=== PATIENT | male | born 1950 ===

== ENCOUNTER 2018-05-04 19:16 | Inpatient (IN) | payer MEDICARE ==
[2018-05-04] MEDS ORDERED: Sodium Chloride 0.9% 1,000 ML IV STA (20:25)
--- NOTE | 2018-05-04 20:44 | ED PDOC ---
Syncope/Near Syncope/Dizziness Time Seen by Provider: 05/04/18 19:54 Chief Complaint (Nursing): Dizziness/Lightheaded Chief Complaint (Provider): Dizziness/Lightheaded History Per: Patient History/Exam Limitations: no limitations Onset/Duration Of Symptoms: Days (x21) Current Symptoms Are (Timing): Still Present Additional Complaint(s): 68 y/o male with no significant PMHx presents to the ED complaining of intermittent dizziness, onset three weeks ago. Patient reports dizziness is worse when walking but improves when lying down. Patient states dizziness has been becoming more frequent and prolonged thus prompting today's visit. Patient reports he has fallen about 6/7 times in the last three weeks. Patient also report of hitting his head once during the past three weeks during a fall but denies loss of consciousness. Patient states dizziness is associated with nausea and sometimes vomiting. Patient also reports of a gas pain in his chest, decreased appetite and unintentional weight loss. Denies diarrhea, focal weakness and blurry vision. PMD: Currently NO PMD due to insurance issues Past Medical History Reviewed: Historical Data, Nursing Documentation, Vital Signs Vital Signs: Last Vital Signs Temp 98.4 F 05/04/18 19:30 Pulse 117 H 05/04/18 19:30 Resp BP 107/70 05/04/18 19:30 Pulse Ox 98 05/04/18 19:30 - Medical History PMH: No Chronic Diseases - Surgical History Other surgeries: Right Shoulder Surgery - Family History Family History: States: Unknown Family Hx - Social History Current smoker - smoking cessation education provided: No - Home Medications Home Medications: Ambulatory Orders Medication Instructions Recorded No Known Home Med 06/23/15 - Allergies Allergies/Adverse Reactions: Allergies Allergy/AdvReac Type Severity Reaction Status Date / Time No Known Allergies Allergy Verified 05/04/18 19:29 Review of Systems ROS Statement: Except As Marked, All Systems Reviewed And Found Negative (as per HPI) Constitutional: Positive for: Weight loss Eyes: Negative for: Vision Change Cardiovascular: Positive for: Chest Pain (gas pain ) Gastrointestinal: Positive for: Nausea, Vomiting, Other (decreased appetite). Negative for: Diarrhea Neurological: Positive for: Dizziness. Negative for: Weakness Physical Exam - Reviewed Nursing Documentation Reviewed: Yes Vital Signs Reviewed: Yes - Physical Exam Appears: Positive for: Well, No Acute Distress Head Exam: Positive for: ATRAUMATIC, NORMOCEPHALIC Skin: Positive for: Warm, Dry Eye Exam: Positive for: EOMI, PERRL ENT: Negative for: Pharyngeal Erythema, Tonsillar Exudate Neck: Positive for: Painless ROM, Supple Cardiovascular/Chest: Positive for: Regular Rate, Rhythm, Tachycardia Respiratory: Positive for: Normal Breath Sounds. Negative for: Wheezing Gastrointestinal/Abdominal: Positive for: Soft. Negative for: Tenderness Back: Positive for: Normal Inspection. Negative for: Decreased ROM Extremity: Positive for: Other (Difficult moving right upper extremity due to right shoulder issue) Lymphatic: Negative for: Adenopathy Neurologic/Psych: Positive for: Alert, Oriented (x3), Cerebellar Tests (normal) - Laboratory Results Result Diagrams: 05/05/18 06:37 05/05/18 06:37 - ECG O2 Sat by Pulse Oximetry: 98 (RA) Pulse Ox Interpretation: Normal Medical Decision Making Medical Decision Making: Time: 2026 Impression: Dizziness Differentials include but not limited to vertigo, electrolyte abnormality, adrenaline sufficiency, dehydration, cerebellar lesion, NPH Plan: -- Type and Screen -- CT Head w/o Contrast -- EKG -- B-Type Natriuretic -- CMP -- Cortisol PM -- Urine Drug Screen -- Lact Acid, Plasma -- Magnesium -- Phosphorus -- Troponin I -- ED Urine Dipstick -- CBC with differentials -- PTT -- Prothrombin Time -- Antivert 50 mg PO -- Sodium Chloride IV 1000 mls/hr -- Zofran Inj 4 mg IVP -- Nodulizer -- IV Insertion -- Orthostatic Blood Pressure Time: 1006 CT HEAD RESULTS FINDINGS: Brain: No hemorrhage. No significant periventricular microischemic changes. No edema. Ventricles: Appropriate for patient's age. Bones/joints: No acute fracture. Soft tissues: No radiopaque foreign body. Sinuses: No acute sinusitis. Mastoid air cells: No mastoid effusion. IMPRESSION: No acute CT intracranial abnormalities. Thank you for allowing us to participate in the care of your patient. Dictated and Authenticated by: Leland Petersen MD 05/04/2018 10:06 PM Eastern Time ([place] & [place]) Multiple electrolyte derangements of unknown cuase. Needs hospitalization for further evaluation. DEMARIO pt findings and plan of care. DEMARIO Enriquez [facility]. Scribe Attestation: Documented by Eb Hackett acting as a scribe for Dr. Megan Lopes. Provider Scribe Attestation: All medical record entries made by the Scribe were at my direction and personally dictated by me. I have reviewed the chart and agree that the record accurately reflects my personal performance of the history, physical exam, medical decision making, and the department course for this patient. I have also personally directed, reviewed, and agree with the discharge instructions and disposition. Disposition - Clinical Impression Clinical Impression: Hypokalemia, Tachycardia, Hypomagnesemia - Disposition Disposition Time: 22:30 Condition: FAIR - Pt Status Changed To: Hospital Disposition Of: Inpatient - Admit Certification Admit to Inpatient:: After my assessment, the patient will require hospitalization for at least two midnights. This is because of the severity of symptoms shown, intensity of services needed, and/or the medical risk in this patient being treated as an outpatient. - POA Present On Arrival: None
[2018-05-04 20:55] LABS: BASO # 0.1 K/uL (0.0-0.2); BASO % 0.7 % (0.0-2.0); EOS % 0.4 % (0.0-4.0); LYMPH # 1.3 K/uL (1.0-4.3); LYMPH % 13.3 % (20.0-40.0); MEAN CELL VOLUME 99.7 fl (80.0-94.0); MEAN CORPUSCULAR HEMOGLOBIN 32.9 pg (27.0-31.0); MEAN CORPUSCULAR HGB CONC 33.1 g/dL (33.0-37.0); MEAN PLATELET VOLUME 8.7 fl (7.2-11.7); MONO # 0.6 K/uL (0.0-0.8); NEUT # 7.8 K/uL (1.8-7.0); NEUT % 79.6 % (50.0-75.0); RBC 3.93 Mil/uL (4.40-5.90); WHITE BLOOD COUNT 9.8 K/uL (4.8-10.8)
[2018-05-04 21:00] LABS: INR 1.2; PROTHROMBIN TIME 13.4 Seconds (9.8-13.1)
[2018-05-04 21:02] LABS: PARTIAL THROMBOPLASTIN TIME 30.4 Seconds (25.6-37.1)
[2018-05-04 21:06] LABS: ALB/GLOB RATIO 1.1 (1.0-2.1); ALBUMIN 3.8 g/dL (3.5-5.0); ALT/SGPT 35 U/L (21-72); AST/SGOT 156 U/L (17-59); BLOOD UREA NITROGEN 5 mg/dl (9-20); CALCIUM 9.2 mg/dL (8.4-10.2); GFR AFRICAN-AMERICAN > 60; GFR NON-AFRICAN AMERICAN > 60
[2018-05-04 21:17] LABS: B-TYPE NATRIURETIC PEPTIDE 271 pg/ml (0-900)
[2018-05-04] MEDS ORDERED: Potassium CL 10mEq/100ml 100 ML IVPB ONE (22:03)
[2018-05-04] MEDS ORDERED: Magnesium Sulfate 2 gm/50 ml 2 GM/50 ML BAG IVPB ONE (22:08)
[2018-05-04] MEDS ORDERED: Potassium Chl 20 mEq in NS 1,000 ML IV SCH (22:15)
[2018-05-05] MEDS ORDERED: Magnesium Sulfate 2 gm/50 ml 2 GM/50 ML BAG ONE (01:43)
[2018-05-05] MEDS ORDERED: Dextrose 5%/Lactated Ringer's 1,000 ML IV SCH (06:30)
[2018-05-05 06:58] LABS: HEMOGLOBIN 11.3 g/dL (12.0-18.0); MEAN CELL VOLUME 100.6 fl (80.0-94.0); MEAN CORPUSCULAR HEMOGLOBIN 33.1 pg (27.0-31.0); MEAN CORPUSCULAR HGB CONC 32.9 g/dL (33.0-37.0); RBC 3.41 Mil/uL (4.40-5.90); WHITE BLOOD COUNT 10.2 K/uL (4.8-10.8)
[2018-05-05 07:00] LABS: BLOOD UREA NITROGEN 4 mg/dl (9-20); CALCIUM 7.9 mg/dL (8.4-10.2); GFR AFRICAN-AMERICAN > 60; GFR NON-AFRICAN AMERICAN > 60
--- NOTE | 2018-05-05 07:20 | CARD ---
APPROVED REPORT Date of service: 05/04/2018 <Conclusion> Sinus tachycardia Otherwise normal ECG
--- NOTE | 2018-05-05 07:51 | RAD ---
Date of service: 05/04/2018 HISTORY: weakness COMPARISON: Chest radiographs 10/23/2008. FINDINGS: LUNGS: No active pulmonary disease. PLEURA: No significant pleural effusion identified, no pneumothorax apparent. CARDIOVASCULAR: Normal. OSSEOUS STRUCTURES: No significant abnormalities. VISUALIZED UPPER ABDOMEN: Elevation right hemidiaphragm. OTHER FINDINGS: None. IMPRESSION: Mild elevation right hemidiaphragm. No acute infiltrate or interval cardiovascular disease appreciable.
[2018-05-05 08:10] VITALS: PULSE 90
[2018-05-05] MEDS ORDERED: Pneumococcal 23-Valent Vaccine IM ONE (09:00)
--- NOTE | 2018-05-05 10:11 | CT ---
Date of service: 05/04/2018 PROCEDURE: CT HEAD WITHOUT CONTRAST. HISTORY: intractable dizziness COMPARISON: None available. TECHNIQUE: Axial computed tomography images were obtained through the head/brain without intravenous contrast. Radiation dose: Total exam DLP = 758.06 mGy-cm. This CT exam was performed using one or more of the following dose reduction techniques: Automated exposure control, adjustment of the mA and/or kV according to patient size, and/or use of iterative reconstruction technique. FINDINGS: HEMORRHAGE: No intracranial hemorrhage. BRAIN: Good corticomedullary differentiation is seen. Minimal, proportional, diffuse expansion of the ventriculosulcal and cisternal spaces is appreciated with white matter lucency compatible with diffuse cerebral atrophy and chronic microangiopathy. No suspicious extra-axial fluid collection is identified and the midline brain anatomy appears grossly nonfocal as imaged. There is no mass effect throughout.No atrophy or chronic microvascular ischemic changes. VENTRICLES: Unremarkable. No hydrocephalus. CALVARIUM: Unremarkable. PARANASAL SINUSES: Unremarkable as visualized. No significant inflammatory changes. MASTOID AIR CELLS: Unremarkable as visualized. No inflammatory changes. OTHER FINDINGS: None. IMPRESSION: Minimal age related neuro degenerative findings as discussed above. No acute intracranial findings by standard CT criteria. Follow-up CT or MRI are available if clinically warranted. Concordant preliminary report from [facility], 05/04/2018.
[2018-05-05 10:31] LABS: ALT/SGPT 32 U/L (21-72); AST/SGOT 165 U/L (17-59)
--- NOTE | 2018-05-05 10:49 | CP.PCM.CON ---
<HermiloradhafrankyYunier - Last Filed: 05/05/18 11:36> History of Present Illness - History of Present Illness History of Present Illness: GI Fellow PGY4, consult note. Jaime Montelongo is a 68M presenting with recurrent falls and found to have elevated liver tests. Patient has been feeling weak and falling for 3 weeks. He admits ~20lb weight loss in the last month. He denies appetite and develops nausea and non-bloody vomiting with eating. He denies difficulty swallowing, or abnormal bowel movements. He denies black stool. He denies abdominal pain. He is not seeing a PCP at this time. He was told to stop drinking alcohol a few years ago because he had abnormal liver tests. PMHx - colon polyps PSHx - Hernia repair. Colonoscopy x2, last one was ~10yrs ago. Told to repeat study in 5 yrs. FMHx - Denies cancer of colon, stomach, liver. Denies cirrhosis. SocHx - Denies tobacco use. Previous heavy drinker, but drinks occasionally. , lives with family. 12pt ROS completed and negative except for above. Past Patient History - Past Medical History & Family History Past Medical History?: Yes - Past Social History Smoking Status: Former Smoker - CARDIAC Hx Cardiac Disorders: No - PULMONARY Hx Respiratory Disorders: No - NEUROLOGICAL Hx Neurological Disorder: No - HEENT Hx HEENT Problems: No - RENAL Hx Chronic Kidney Disease: No - ENDOCRINE/METABOLIC Hx Endocrine Disorders: No - HEMATOLOGICAL/ONCOLOGICAL Hx Blood Disorders: No - INTEGUMENTARY Hx Dermatological Problems: No - MUSCULOSKELETAL/RHEUMATOLOGICAL Hx Musculoskeletal Disorders: No Hx Falls: Yes - GASTROINTESTINAL Hx Gastrointestinal Disorders: No - GENITOURINARY/GYNECOLOGICAL Hx Genitourinary Disorders: No - PSYCHIATRIC Hx Psychophysiologic Disorder: No Hx Substance Use: No - SURGICAL HISTORY Hx Herniorrhaphy: Yes Hx Orthopedic Surgery: Yes (Right shoulder surgery) - ANESTHESIA Hx Anesthesia: Yes Hx Anesthesia Reactions: No Hx Malignant Hyperthermia: No Has any member of the family had a problem w/ anesthesia?: No Meds Allergies/Adverse Reactions: Allergies Allergy/AdvReac Type Severity Reaction Status Date / Time No Known Allergies Allergy Verified 05/04/18 19:29 - Medications Medications: Current Medications Potassium Chloride/Sodium Chloride (Potassium Chl 20 Meq In Ns) 1,000 mls @ 250 mls/hr IV .Q4H [facility]IA Stop: 05/05/18 22:06 Last Admin: 05/05/18 03:25 Dose: 250 mls/hr Dextrose/Lactated Ringer's (Dextrose 5%/Lactated Ringer's) 1,000 mls @ 100 mls/ hr IV .Q10H [facility] Last Admin: 05/05/18 08:48 Dose: 100 mls/hr Physical Exam - Constitutional Appears: Well, Non-toxic, No Acute Distress - Head Exam Head Exam: NORMAL INSPECTION - Eye Exam Eye Exam: Normal appearance - ENT Exam ENT Exam: Normal Exam - Respiratory Exam Respiratory Exam: Clear to Auscultation Bilateral, NORMAL BREATHING PATTERN. absent: Wheezes - Cardiovascular Exam Cardiovascular Exam: REGULAR RHYTHM, +S1, +S2 - GI/Abdominal Exam GI & Abdominal Exam: Normal Bowel Sounds, Organomegaly, Soft. absent: Tenderness - Rectal Exam Rectal Exam: NORMAL INSPECTION Additional comments: No obvious mass. Prostate was uniform, symmetric. stool was brown in color. - Extremities Exam Extremities exam: Positive for: normal inspection - Neurological Exam Neurological exam: Alert, CN II-XII Intact, Oriented x3 - Psychiatric Exam Psychiatric exam: Normal Affect, Normal Mood - Skin Skin Exam: Dry, Normal Color Results - Vital Signs Recent Vital Signs: Last Vital Signs Temp 98.4 F 05/05/18 08:09 Pulse 90 05/05/18 09:00 Resp 19 05/05/18 08:09 BP 128/88 05/05/18 08:09 Pulse Ox 98 05/05/18 08:09 - Labs Result Diagrams: 05/05/18 06:37 05/05/18 06:37 Labs: Laboratory Results - last 24 hr 05/04/18 05/04/18 05/04/18 20:45 20:45 20:45 WBC 9.8 RBC 3.93 L Hgb 13.0 Hct 39.2 MCV 99.7 H MCH 32.9 H MCHC 33.1 RDW 13.0 Plt Count 161 MPV 8.7 Neut % (Auto) 79.6 H Lymph % (Auto) 13.3 L [place] % (Auto) 6.0 Eos % (Auto) 0.4 Baso % (Auto) 0.7 Neut # (Auto) 7.8 H Lymph # (Auto) 1.3 [place] # (Auto) 0.6 Eos # (Auto) 0.0 Baso # (Auto) 0.1 PT 13.4 H INR 1.2 APTT 30.4 Sodium 137 Potassium 3.0 L Chloride 95 L Carbon Dioxide 33 H Anion Gap 12 BUN 5 L Creatinine 0.7 L Est GFR ( Amer) > 60 Est GFR (Non-Af Amer) > 60 Random Glucose 113 H Lactic Acid Calcium 9.2 Phosphorus 1.8 L Magnesium 1.2 L Total Bilirubin 1.4 H AST 156 H ALT 35 Alkaline Phosphatase 227 H Troponin I 0.0160 NT-Pro-B Natriuret Pep 271 Total Protein 7.3 Albumin 3.8 Globulin 3.6 Albumin/Globulin Ratio 1.1 Alpha Fetoprotein Carcinoembryonic Ag Blood Type Antibody Screen BBK History Checked 05/04/18 05/04/18 05/05/18 20:45 20:45 06:37 WBC 10.2 RBC 3.41 L Hgb 11.3 L Hct 34.3 L MCV 100.6 H MCH 33.1 H MCHC 32.9 L RDW 13.0 Plt Count 135 MPV Neut % (Auto) Lymph % (Auto) [place] % (Auto) Eos % (Auto) Baso % (Auto) Neut # (Auto) Lymph # (Auto) [place] # (Auto) Eos # (Auto) Baso # (Auto) PT INR APTT Sodium Potassium Chloride Carbon Dioxide Anion Gap BUN Creatinine Est GFR ( Amer) Est GFR (Non-Af Amer) Random Glucose Lactic Acid 2.3 H Calcium Phosphorus Magnesium Total Bilirubin AST ALT Alkaline Phosphatase Troponin I NT-Pro-B Natriuret Pep Total Protein Albumin Globulin Albumin/Globulin Ratio Alpha Fetoprotein Carcinoembryonic Ag Blood Type O POSITIVE Antibody Screen Negative BBK History Checked No verified bt 05/05/18 05/05/18 06:37 06:37 WBC RBC Hgb Hct MCV MCH MCHC RDW Plt Count MPV Neut % (Auto) Lymph % (Auto) [place] % (Auto) Eos % (Auto) Baso % (Auto) Neut # (Auto) Lymph # (Auto) [place] # (Auto) Eos # (Auto) Baso # (Auto) PT INR APTT Sodium 136 Potassium 3.7 Chloride 99 Carbon Dioxide 32 H Anion Gap 9 L BUN 4 L Creatinine 0.6 L Est GFR ( Amer) > 60 Est GFR (Non-Af Amer) > 60 Random Glucose 114 H Lactic Acid Calcium 7.9 L Phosphorus 1.5 L Magnesium 1.5 L Total Bilirubin 1.9 H AST 165 H ALT 32 Alkaline Phosphatase 173 H D Troponin I NT-Pro-B Natriuret Pep Total Protein 6.0 L Albumin 3.0 L D Globulin 3.0 Albumin/Globulin Ratio 1.0 Alpha Fetoprotein 2.2 Carcinoembryonic Ag 4.3 H Blood Type Antibody Screen BBK History Checked Assessment & Plan - Assessment and Plan (Free Text) Assessment: 68M presenting with recurrent falls and found to have elevated liver tests. #Elevated liver tests #weight loss #Nausea/vomiting #Elevated CEA #Hx of colon polyps #Anemia macrocytic #Generalized weakness #Recurrent falls Plan: -Continue supportive care. -Liver function tests (Plts, INR, Albumin, Tbili) are consistent with chronic liver disease, possible cirrhosis. -For abnormal liver tests: abdominal US, hepatitis panel, CK, TSH, drug screen -For anemia: b12 level -For wt. loss, nausea/vomiting in setting of elevated CEA: Patient will benefit from EGD and Colonoscopy -Schedule for endoscopy Tuesday -He will need to be on clear liquid diet Tuesday and NPO Tuesday. Bowel prep starting Tuesday - Date & Time Date: 05/05/18 Time: 10:47 <Isrrael Quiroz - Last Filed: 05/05/18 14:57> Results - Vital Signs Recent Vital Signs: Last Vital Signs Temp 98.8 F 05/05/18 13:34 Pulse 90 05/05/18 13:34 Resp 18 05/05/18 13:34 BP 142/91 H 05/05/18 13:34 Pulse Ox 99 05/05/18 13:34 - Labs Result Diagrams: 05/05/18 06:37 05/05/18 06:37 Labs: Laboratory Results - last 24 hr 05/04/18 05/04/18 05/04/18 20:45 20:45 20:45 WBC 9.8 RBC 3.93 L Hgb 13.0 Hct 39.2 MCV 99.7 H MCH 32.9 H MCHC 33.1 RDW 13.0 Plt Count 161 MPV 8.7 Neut % (Auto) 79.6 H Lymph % (Auto) 13.3 L [place] % (Auto) 6.0 Eos % (Auto) 0.4 Baso % (Auto) 0.7 Neut # (Auto) 7.8 H Lymph # (Auto) 1.3 [place] # (Auto) 0.6 Eos # (Auto) 0.0 Baso # (Auto) 0.1 PT 13.4 H INR 1.2 APTT 30.4 Sodium 137 Potassium 3.0 L Chloride 95 L Carbon Dioxide 33 H Anion Gap 12 BUN 5 L Creatinine 0.7 L Est GFR ( Amer) > 60 Est GFR (Non-Af Amer) > 60 Random Glucose 113 H Lactic Acid Calcium 9.2 Phosphorus 1.8 L Magnesium 1.2 L Total Bilirubin 1.4 H AST 156 H ALT 35 Alkaline Phosphatase 227 H CK-MB (Mass) Troponin I 0.0160 NT-Pro-B Natriuret Pep 271 Total Protein 7.3 Albumin 3.8 Globulin 3.6 Albumin/Globulin Ratio 1.1 Alpha Fetoprotein Carcinoembryonic Ag Vitamin B12 Blood Type Antibody Screen BBK History Checked 05/04/18 05/04/18 05/05/18 20:45 20:45 06:37 WBC 10.2 RBC 3.41 L Hgb 11.3 L Hct 34.3 L MCV 100.6 H MCH 33.1 H MCHC 32.9 L RDW 13.0 Plt Count 135 MPV Neut % (Auto) Lymph % (Auto) [place] % (Auto) Eos % (Auto) Baso % (Auto) Neut # (Auto) Lymph # (Auto) [place] # (Auto) Eos # (Auto) Baso # (Auto) PT INR APTT Sodium Potassium Chloride Carbon Dioxide Anion Gap BUN Creatinine Est GFR ( Amer) Est GFR (Non-Af Amer) Random Glucose Lactic Acid 2.3 H Calcium Phosphorus Magnesium Total Bilirubin AST ALT Alkaline Phosphatase CK-MB (Mass) Troponin I NT-Pro-B Natriuret Pep Total Protein Albumin Globulin Albumin/Globulin Ratio Alpha Fetoprotein Carcinoembryonic Ag Vitamin B12 Blood Type O POSITIVE Antibody Screen Negative BBK History Checked No verified bt 05/05/18 05/05/18 05/05/18 06:37 06:37 11:39 WBC RBC Hgb Hct MCV MCH MCHC RDW Plt Count MPV Neut % (Auto) Lymph % (Auto) [place] % (Auto) Eos % (Auto) Baso % (Auto) Neut # (Auto) Lymph # (Auto) [place] # (Auto) Eos # (Auto) Baso # (Auto) PT INR APTT Sodium 136 Potassium 3.7 Chloride 99 Carbon Dioxide 32 H Anion Gap 9 L BUN 4 L Creatinine 0.6 L Est GFR ( Amer) > 60 Est GFR (Non-Af Amer) > 60 Random Glucose 114 H Lactic Acid Calcium 7.9 L Phosphorus 1.5 L Magnesium 1.5 L Total Bilirubin 1.9 H AST 165 H ALT 32 Alkaline Phosphatase 173 H D CK-MB (Mass) 0.38 Troponin I NT-Pro-B Natriuret Pep Total Protein 6.0 L Albumin 3.0 L D Globulin 3.0 Albumin/Globulin Ratio 1.0 Alpha Fetoprotein 2.2 Carcinoembryonic Ag 4.3 H Vitamin B12 Blood Type Antibody Screen BBK History Checked 05/05/18 11:40 WBC RBC Hgb Hct MCV MCH MCHC RDW Plt Count MPV Neut % (Auto) Lymph % (Auto) [place] % (Auto) Eos % (Auto) Baso % (Auto) Neut # (Auto) Lymph # (Auto) [place] # (Auto) Eos # (Auto) Baso # (Auto) PT INR APTT Sodium Potassium Chloride Carbon Dioxide Anion Gap BUN Creatinine Est GFR ( Amer) Est GFR (Non-Af Amer) Random Glucose Lactic Acid Calcium Phosphorus Magnesium Total Bilirubin AST ALT Alkaline Phosphatase CK-MB (Mass) Troponin I NT-Pro-B Natriuret Pep Total Protein Albumin Globulin Albumin/Globulin Ratio Alpha Fetoprotein Carcinoembryonic Ag Vitamin B12 956 H Blood Type Antibody Screen BBK History Checked Assessment & Plan - Assessment and Plan (Free Text) Plan: Patient discussed with GI fellow and the note reflects our assessment.
--- NOTE | 2018-05-05 12:40 | RAD ---
Date of service: 05/05/2018 PROCEDURE: Radiographs of the Lumbar Spine. HISTORY: back pain abnormal alp COMPARISON: No prior. FINDINGS: BONES: Normal alignment. No listhesis. No fracture. Multilevel non marginal osteophyte formation. DISC SPACES: Unremarkable. OTHER FINDINGS: None. IMPRESSION: No significant or acute findings to account for/ related to the clinical presentation.
[2018-05-05 13:34] VITALS: BP 142/91; RESP 18; TEMP 98.8
--- NOTE | 2018-05-05 15:59 | US ---
Date of service: 05/05/2018 HISTORY: abnormal alp COMPARISON: None. TECHNIQUE: Sonographic evaluation of the abdomen. FINDINGS: LIVER: Measures 19.4 cm. A mildly enlarged and echogenic liver is identified suggesting diffuse fatty infiltration. No mass. No intrahepatic bile duct dilatation. GALLBLADDER: Gallbladder is distended with prominent sludge identified in the lumen. Underlying lesion is not completely excluded and the sludge pattern appears somewhat tumefactive. Borderline mural thickening just under 3 mm thickness and may indicate an element of cholecystitis. Clinically correlate further. No pericholecystic fluid collection or reported sonographic Rathur sign. COMMON BILE DUCT: Measures 3.0 mm. No stones. No dilatation. PANCREAS: The tail of the pancreas is obscured by overlying bowel gas with remainder unremarkable. RIGHT KIDNEY: Measures 9.0cm. Normal echogenicity. No calculus, mass, or hydronephrosis. LEFT KIDNEY: Measures 10.0cm. Normal echogenicity. No calculus, mass, or hydronephrosis. SPLEEN: Normal in size and contour 10.1. No mass. AORTA: No aneurysmal dilatation. IVC: Unremarkable. OTHER FINDINGS: None. IMPRESSION: 1. Mild hepatomegaly, hepatic steatosis. 2. Distended gallbladder with prominent sludge in the lumen. Although there is no sonographic Arthur sign reported or pericholecystic fluid collection demonstrated, consider for potential cholecystitis. Normal CBD caliber. 3. Partial imaging of the pancreas.
--- NOTE | 2018-05-05 16:27 | CP.PCM.HP ---
History of Present Illness - History of Present Illness History of Present Illness: 68 yo M with pmh excess alcohol use admitted due to electrolyte derangement and dizziness. Pt presented to ED c/o 3 weeks worth of dizziness and weakness. States that about 5-6 times during the past 3 weeks he has fallen but has never lost consciousness. Denies hitting his head. Has not seen a doctor in 2 yrs. Feels like he has lost weight in the past few months without trying to. Denies any blood in stool or urine, or difficulty with stooling or urination in general. Admits to being heavy drinker in the past, now drinks avg 1 pt vodka/ week. Had colonoscopy years ago. PMH: no chronic conditions Meds: no chronic medications Social hx: former heavy drinker, currently 1 pint/week of vodka, no tobacco use , no drug use. Fam hx: denies htn, diabetes, colon ca; mother had uterine ca Allergies: nkda Present on Admission - Present on Admission Any Indicators Present on Admission: No Review of Systems - Review of Systems All systems: reviewed and no additional remarkable complaints except - Constitutional Constitutional: Weight Loss - Neurological Neurological: Dizziness Past Patient History - Past Medical History & Family History Past Medical History?: Yes - Past Social History Smoking Status: Unknown If Ever Smoked Alcohol: Occasional Drugs: Denies - CARDIAC Hx Cardiac Disorders: No - PULMONARY Hx Respiratory Disorders: No - NEUROLOGICAL Hx Neurological Disorder: No - HEENT Hx HEENT Problems: No - RENAL Hx Chronic Kidney Disease: No - ENDOCRINE/METABOLIC Hx Endocrine Disorders: No - HEMATOLOGICAL/ONCOLOGICAL Hx Blood Disorders: No - INTEGUMENTARY Hx Dermatological Problems: No - MUSCULOSKELETAL/RHEUMATOLOGICAL Hx Musculoskeletal Disorders: No Hx Falls: Yes - GASTROINTESTINAL Hx Gastrointestinal Disorders: No - GENITOURINARY/GYNECOLOGICAL Hx Genitourinary Disorders: No - PSYCHIATRIC Hx Psychophysiologic Disorder: No Hx Substance Use: No - SURGICAL HISTORY Hx Herniorrhaphy: Yes Hx Orthopedic Surgery: Yes (Right shoulder surgery) - ANESTHESIA Hx Anesthesia: Yes Hx Anesthesia Reactions: No Hx Malignant Hyperthermia: No Has any member of the family had a problem w/ anesthesia?: No Meds Allergies/Adverse Reactions: Allergies Allergy/AdvReac Type Severity Reaction Status Date / Time No Known Allergies Allergy Verified 05/04/18 19:29 Physical Exam - Constitutional Appears: Non-toxic, No Acute Distress - Head Exam Head Exam: NORMAL INSPECTION, NORMOCEPHALIC - Eye Exam Eye Exam: Normal appearance - ENT Exam ENT Exam: Mucous Membranes Moist - Respiratory Exam Respiratory Exam: Clear to Auscultation Bilateral, NORMAL BREATHING PATTERN - Cardiovascular Exam Cardiovascular Exam: REGULAR RHYTHM, +S1, +S2 - GI/Abdominal Exam GI & Abdominal Exam: Normal Bowel Sounds, Soft. absent: Tenderness - Extremities Exam Extremities exam: Positive for: normal capillary refill, normal inspection. Negative for: calf tenderness, pedal edema - Back Exam Back exam: NORMAL INSPECTION - Neurological Exam Neurological exam: Alert, Oriented x3 - Psychiatric Exam Psychiatric exam: Normal Mood - Skin Skin Exam: Dry, Normal Color, Warm Results - Vital Signs Recent Vital Signs: Last Vital Signs Temp 98.8 F 05/05/18 13:34 Pulse 90 05/05/18 13:34 Resp 18 05/05/18 13:34 BP 142/91 H 05/05/18 13:34 Pulse Ox 99 05/05/18 13:34 - Labs Result Diagrams: 05/05/18 06:37 05/05/18 06:37 Labs: Laboratory Results - last 24 hr 05/04/18 05/04/18 05/04/18 20:45 20:45 20:45 WBC 9.8 RBC 3.93 L Hgb 13.0 Hct 39.2 MCV 99.7 H MCH 32.9 H MCHC 33.1 RDW 13.0 Plt Count 161 MPV 8.7 Neut % (Auto) 79.6 H Lymph % (Auto) 13.3 L [place] % (Auto) 6.0 Eos % (Auto) 0.4 Baso % (Auto) 0.7 Neut # (Auto) 7.8 H Lymph # (Auto) 1.3 [place] # (Auto) 0.6 Eos # (Auto) 0.0 Baso # (Auto) 0.1 PT 13.4 H INR 1.2 APTT 30.4 Sodium 137 Potassium 3.0 L Chloride 95 L Carbon Dioxide 33 H Anion Gap 12 BUN 5 L Creatinine 0.7 L Est GFR ( Amer) > 60 Est GFR (Non-Af Amer) > 60 Random Glucose 113 H Lactic Acid Calcium 9.2 Phosphorus 1.8 L Magnesium 1.2 L Total Bilirubin 1.4 H AST 156 H ALT 35 Alkaline Phosphatase 227 H CK-MB (Mass) Troponin I 0.0160 NT-Pro-B Natriuret Pep 271 Total Protein 7.3 Albumin 3.8 Globulin 3.6 Albumin/Globulin Ratio 1.1 Alpha Fetoprotein Carcinoembryonic Ag Vitamin B12 Blood Type Antibody Screen BBK History Checked 05/04/18 05/04/18 05/05/18 20:45 20:45 06:37 WBC 10.2 RBC 3.41 L Hgb 11.3 L Hct 34.3 L MCV 100.6 H MCH 33.1 H MCHC 32.9 L RDW 13.0 Plt Count 135 MPV Neut % (Auto) Lymph % (Auto) [place] % (Auto) Eos % (Auto) Baso % (Auto) Neut # (Auto) Lymph # (Auto) [place] # (Auto) Eos # (Auto) Baso # (Auto) PT INR APTT Sodium Potassium Chloride Carbon Dioxide Anion Gap BUN Creatinine Est GFR ( Amer) Est GFR (Non-Af Amer) Random Glucose Lactic Acid 2.3 H Calcium Phosphorus Magnesium Total Bilirubin AST ALT Alkaline Phosphatase CK-MB (Mass) Troponin I NT-Pro-B Natriuret Pep Total Protein Albumin Globulin Albumin/Globulin Ratio Alpha Fetoprotein Carcinoembryonic Ag Vitamin B12 Blood Type O POSITIVE Antibody Screen Negative BBK History Checked No verified bt 05/05/18 05/05/18 05/05/18 06:37 06:37 11:39 WBC RBC Hgb Hct MCV MCH MCHC RDW Plt Count MPV Neut % (Auto) Lymph % (Auto) [place] % (Auto) Eos % (Auto) Baso % (Auto) Neut # (Auto) Lymph # (Auto) [place] # (Auto) Eos # (Auto) Baso # (Auto) PT INR APTT Sodium 136 Potassium 3.7 Chloride 99 Carbon Dioxide 32 H Anion Gap 9 L BUN 4 L Creatinine 0.6 L Est GFR ( Amer) > 60 Est GFR (Non-Af Amer) > 60 Random Glucose 114 H Lactic Acid Calcium 7.9 L Phosphorus 1.5 L Magnesium 1.5 L Total Bilirubin 1.9 H AST 165 H ALT 32 Alkaline Phosphatase 173 H D CK-MB (Mass) 0.38 Troponin I NT-Pro-B Natriuret Pep Total Protein 6.0 L Albumin 3.0 L D Globulin 3.0 Albumin/Globulin Ratio 1.0 Alpha Fetoprotein 2.2 Carcinoembryonic Ag 4.3 H Vitamin B12 Blood Type Antibody Screen BBK History Checked 05/05/18 11:40 WBC RBC Hgb Hct MCV MCH MCHC RDW Plt Count MPV Neut % (Auto) Lymph % (Auto) [place] % (Auto) Eos % (Auto) Baso % (Auto) Neut # (Auto) Lymph # (Auto) [place] # (Auto) Eos # (Auto) Baso # (Auto) PT INR APTT Sodium Potassium Chloride Carbon Dioxide Anion Gap BUN Creatinine Est GFR ( Amer) Est GFR (Non-Af Amer) Random Glucose Lactic Acid Calcium Phosphorus Magnesium Total Bilirubin AST ALT Alkaline Phosphatase CK-MB (Mass) Troponin I NT-Pro-B Natriuret Pep Total Protein Albumin Globulin Albumin/Globulin Ratio Alpha Fetoprotein Carcinoembryonic Ag Vitamin B12 956 H Blood Type Antibody Screen BBK History Checked Assessment & Plan (1) Elevated liver enzymes Status: Acute (2) Weakness Status: Acute (3) Unintended weight loss Status: Acute - Assessment and Plan (Free Text) Plan: - admitted to telemetry - hypokalemia corrected - gastroenterology consult; also pending abd u/s -- plan for EGD and colonoscopy tuesday 05/08 - s/p lumbar xray - elevated ALP and CEA - PSA, CA 19-9 - rest of plan as ordered - Date & Time Date: 05/05/18 Time: 14:00
--- NOTE | 2018-05-05 16:46 | CP.PCM.PCO ---
Addendum Addendum: 05/05/18 16:37 Called at 15:07 by RN, stating pt wanted to leave hospital. RN had already explained to pt the importance of necessary workup, but pt adamant about leaving. I went to see patient, patient stating that he got phone call that his son was in serious condition in hospital in [place], pt stated "son is dying." Explained to patient that he would be leaving against medical advice, and that primary team and GI team planned further exams and workup for him to properly evaluate and treat. Explained benefits of staying include but are not limited to proper workup and diagnosis, and risks include and are not limited to dizziness, falls which could lead to loss of consciousness and/or brain bleeds, delayed diagnosis of potential malignancy, not getting proper workup by specialist, increased morbidity and complications. Pt still persistent in decision to want to leave; he verbalized understanding and signed AMA form; RN and I signed form as well. Pt was alert, oriented, in no acute distress, and was able to ambulate around the room. Encouraged patient to follow up with a PMD or GI doctor, and/or return to ED at any time. All discussed with NATALIA Arguello as witness in room. Admitting MD Dr. Enriquez notified.
[2018-05-05 16:53] VITALS: O2SAT 98
[2018-05-06 08:36] LABS: TOTAL PSA 1.9 ng/mL (< or = 4.0)
[2018-05-07] MEDS ORDERED: Bisacodyl 5mg EC Tab PO ONE (17:00)
[2018-05-07] MEDS ORDERED: Peg-Electrolyte Oral Soln 4L (Golytely) PO ONE (19:00)
== END 2018-05-05 15:45 | disposition left against medical advice (07) | DRG 641 ==
LOC: H.ER 19:16 → H.ERHOLD 22:07 → H.TEL 05-05 02:21 → UNDODISIN 05-05 14:20
PROVIDERS: ADMIT Family Medicine; ATTEND Family Medicine
DX: E87.6 Hypokalemia (principal); E83.42 Hypomagnesemia; R29.6 Repeated falls; Z87.891 Personal history of nicotine dependence; Z86.010 Personal history of colon polyps; D53.9 Nutritional anemia, unspecified; R11.2 Nausea with vomiting, unspecified; R97.0 Elevated carcinoembryonic antigen [CEA]; R53.1 Weakness; R74.8 Abnormal levels of other serum enzymes

== ENCOUNTER 2018-07-02 21:16 | Inpatient (IN) | payer MEDICARE ==
[2018-07-02] MEDS: Sodium Chloride 0.9% 1,000 ML IV STA ×2 (22:28→23:17)
[2018-07-02 22:37] LABS: BASO # 0.1 K/uL (0.0-0.2); BASO % 0.3 % (0.0-2.0); EOS % 0.1 % (0.0-4.0); HEMOGLOBIN 12.4 g/dL (12.0-18.0); LYMPH % 5.1 % (20.0-40.0); MEAN CORPUSCULAR HEMOGLOBIN 32.8 pg (27.0-31.0); MEAN CORPUSCULAR HGB CONC 32.8 g/dL (33.0-37.0); MEAN PLATELET VOLUME 8.9 fl (7.2-11.7); MONO # 1.3 K/uL (0.0-0.8); MONO % 6.8 % (0.0-10.0); NEUT # 16.9 K/uL (1.8-7.0); NEUT % 87.7 % (50.0-75.0); NRBC % 0.1 % (0.0-0.0); PLATELET COUNT 133 K/uL (130-400); RBC 3.77 Mil/uL (4.40-5.90); RED CELL DISTRIBUTION WIDTH 13.3 % (11.5-14.5); WHITE BLOOD COUNT 19.2 K/uL (4.8-10.8)
[2018-07-02 22:42] LABS: INR 1.8
[2018-07-02 22:43] LABS: VENOUS BLOOD GAS BASE EXCESS 3.5 mmol/L (0.0-2.0); VENOUS BLOOD GAS PCO2 35 mmHg (40-60); VENOUS BLOOD GAS PO2 30 mm/Hg (30-55); VENOUS BLOOD PH 7.49 (7.32-7.43)
[2018-07-02 22:45] LABS: PARTIAL THROMBOPLASTIN TIME 33.1 Seconds (25.6-37.1)
--- NOTE | 2018-07-02 22:48 | ED PDOC ---
HPI: Altered Mental Status Time Seen by Provider: 07/02/18 21:31 Chief Complaint (Nursing): Altered Mental Status Chief Complaint (Provider): Altered Mental Status History Per: Patient History/Exam Limitations: None Onset/Duration Of Symptoms: Unknown Onset Of Symptoms: Cannot Confirm Onset Additional Complaint(s): 68 year old male brought in for altered mental status after he was found inside of a car, not making sense, and brought to ER for evaluation. Patient states he has no prior medical history, however chart review reveals patient was recently admitted for electrolyte abnormality and possible cirrhosis. Patient admits to alcohol consumption today, denies drugs. Patient is oriented to person, place, and year, but believes it is October and does not know why he is in the ER. He denies any chest pain, SOB, headache, fever, or other complaints. States he has chronic lower back pain. PMD: None Past Medical History Reviewed: Historical Data, Nursing Documentation, Vital Signs Vital Signs: Last Vital Signs Temp 98.6 F 07/02/18 21:19 Pulse 143 H 07/02/18 21:19 Resp 16 07/02/18 21:19 BP 136/82 07/02/18 21:19 Pulse Ox 99 07/02/18 21:19 - Medical History PMH: Denies: Chronic Kidney Disease Other PMH: Cirrhosis - Family History Family History: States: Unknown Family Hx - Home Medications Home Medications: Ambulatory Orders Medication Instructions Recorded No Known Home Med 06/23/15 - Allergies Allergies/Adverse Reactions: Allergies Allergy/AdvReac Type Severity Reaction Status Date / Time No Known Allergies Allergy Verified 07/02/18 21:23 Review of Systems ROS Statement: Except As Marked, All Systems Reviewed And Found Negative Constitutional: Negative for: Fever Eyes: Negative for: Vision Change Cardiovascular: Negative for: Chest Pain Respiratory: Negative for: Shortness of Breath Gastrointestinal: Negative for: Vomiting, Abdominal Pain Neurological: Positive for: Altered Mental Status. Negative for: Headache Physical Exam - Reviewed Nursing Documentation Reviewed: Yes Vital Signs Reviewed: Yes - Physical Exam Appears: Positive for: Well, Non-toxic, No Acute Distress Head Exam: Positive for: ATRAUMATIC, NORMOCEPHALIC Skin: Positive for: Normal Color, Warm, Dry Eye Exam: Positive for: EOMI, PERRL, Scleral icterus (slight) Neck: Positive for: Normal, Supple Cardiovascular/Chest: Positive for: Tachycardia. Negative for: Murmur Respiratory: Positive for: Normal Breath Sounds. Negative for: Accessory Muscle Use, Respiratory Distress Gastrointestinal/Abdominal: Positive for: Organomegaly (Hepatomegaly), Distended (with +fluid wave), Other (caput medusae). Negative for: Tenderness Extremity: Positive for: Normal ROM. Negative for: Pedal Edema, Calf Tenderness Neurologic/Psych: Positive for: Alert, Oriented (to person, place, and year, but not situation). Negative for: Motor/Sensory Deficits - Laboratory Results Result Diagrams: 07/02/18 22:30 07/02/18 22:30 - ECG O2 Sat by Pulse Oximetry: 99 (RA) Pulse Ox Interpretation: Normal Medical Decision Making Medical Decision Making: A/P: 68 year old male presenting with altered mental status and tachycardia Patient is comfortable, well-appearing, in no distress vital signs show patient has tachycardia differential includes but is not limited to cirrhosis with encephalopathy vs alcohol intoxication vs alcohol withdrawal vs electrolyte imbalance Initial Plan: * VBG * Alcohol serum * Ammonia * Lipase * Magnesium * Phosphorous * Drug screen * Troponin I * Liver profile * CK-MB * BMP * CBC * PTT/PT * Chest x-ray * Urinalysis * IVF hydration * CT Head w/o contrast 1AM --Patient has leukocytosis and lactic acidosis, although unexplained at this time --Broad spectrum ABx given in case of possible infectious etiology, however unclear of source, if any --Unlikely seizure because there was no post-ictal period 2AM --Lactate clearing --Dr. Martinez aware of case ------ Scribe Attestation: Documented by Hermila Carrillo, acting as a scribe for Dr. Chau Miller MD. Provider Scribe Attestation: All medical record entries made by the Scribe were at my direction and personally dictated by me. I have reviewed the chart and agree that the record accurately reflects my personal performance of the history, physical exam, medical decision making, and the department course for this patient. I have also personally directed, reviewed, and agree with the discharge instructions and disposition. Disposition - Clinical Impression Clinical Impression: Hypomagnesemia, Hypokalemia, Altered mental status, Lactic acidosis - Disposition Disposition Time: 01:00 Condition: FAIR
[2018-07-02 22:49] LABS: ALB/GLOB RATIO 0.8 (1.0-2.1); ALBUMIN 3.2 g/dL (3.5-5.0); ALT/SGPT 41 U/L (21-72); AST/SGOT 271 U/L (17-59); BILIRUBIN,DIRECT 4.6 mg/ml (0.0-0.4); BLOOD UREA NITROGEN 15 mg/dl (9-20); CALCIUM 8.3 mg/dL (8.4-10.2); GFR NON-AFRICAN AMERICAN 33; LIPASE 423 U/L (23-300)
[2018-07-02 22:55] LABS: CK-MB 1.56 ng/mL (0.0-3.38)
[2018-07-02] MEDS ORDERED: Piperacillin/Tazobact 3.375 GM in Sodium Chloride 0.9% 100 ML IVPB STA (23:02)
[2018-07-02] MEDS ORDERED: Magnesium Sulfate 1 GM in Dextrose 5% In Water 100 ML IVPB ONE (23:15)
[2018-07-02] MEDS ORDERED: Piperacillin/Tazobact 3.375 gm Inj IVPB ONE (23:24)
[2018-07-02] MEDS ORDERED: Vancomycin 1 g Inj ONE (23:24)
[2018-07-02] MEDS: Sodium Chloride 0.9% 1,000 ML IV SCH (23:29)
[2018-07-03 00:59] LABS: BANDS 3 % (0-2); LYMPHOCYTE 7 % (20-50); MONOCYTE 5 % (0-10); NEUTROPHIL 84 % (42-75); PLATELET ESTIMATE NORMAL (NORMAL); REACTIVE LYMPHOCYTES 1 % (0-0); TOTAL CELLS COUNTED 100
[2018-07-03 01:00] LABS: ANISOCYTOSIS SLIGHT; HYPOCHROMIC SLIGHT
[2018-07-03] MEDS: Sodium Chloride 0.9% 1,000 ML IV SCH ×4 (01:00→04:04)
[2018-07-03] MEDS ORDERED: Potassium CL 10 MEQ/50 ML 50 ML ONE ×2 (01:40→02:15)
[2018-07-03] MEDS: Potassium CL 10 MEQ/50 ML 50 ML IVPB SCH ×2 (02:09→02:15)
[2018-07-03 02:24] LABS: VENOUS BLOOD GAS BASE EXCESS 6.1 mmol/L (0.0-2.0); VENOUS BLOOD GAS PCO2 38 mmHg (40-60); VENOUS BLOOD GAS PO2 44 mm/Hg (30-55)
--- NOTE | 2018-07-03 03:59 | CP.PCM.HP ---
Addendum entered and electronically signed by Norman Spencer MD 07/03/18 14:33: S: Patient seen and examined this morning. NAD, Follows sinple commands, patient is alert and awake, oriented to date. Patient denies any pain, auditory/visual hallucination. O: VS 105 HR, 115/67, RR 15, Sat 99% RA PE: Cardio: RRR, no murmur, tachycardia, Pulm: CTAB, normal breathing pattern, Abdo: ND/NT, Normal BS, Neuro: Alert, awake, CIWA 4 A/P: 68 y/o male admitted for evaluation and treatment of AMS, Alcohol withdrawal, dehaydration, elevated transaminases, ALLISON and leukocytosis. - Alcohol Withdrawal: CIWA score 4, serial reevaluations, Librium PRN, Folic acid, Thiamine (Tachycardia possibly secondary to alcohol withdrawal) - Dehydration/ALLISON: Improved s/p IVF - Electrolytes imbalance: possible due to chronic alcohol use, replete as needed - Elevated AST: AST:ALT ratio >2:1, possible due to alcohol use - AMS: normal ammonia, Creatine kinase, pending prolactin (f/u) and pr ocalcitonin, Follow up urine drug screen - Leukocytosis: Reactive vs infection, trending down, s/p Vanc and Zosyn, C/w Vanco/Zosyn day#1, follow up urine and blood Cx - Lactatemia on VB.5-->5.6, f/u prolactin - Prolonged PT: Possibly due to alcohol Case discussed with Dr. Shen --- Norman Spencer, PGY-II Original Note: <Frank Dolan - Last Filed: 07/03/18 03:41> History of Present Illness - History of Present Illness History of Present Illness: CC: Altered Mental Status HPI: 68 y/o man w/ no known pmh brought to the ED for AMS. Patient reports vertigo for the past 3 months and worsening lately. Patient reports vertigo when stands up. Patient reports no symptoms while laying down. Patient reports imbalance when ambulating. patient reports 1 fall 2 months ago but no falls since then. Patient recently admitted 05/05/2018 abnormal liver enzymes but wor k up was not completed because patient left AMA. Patient reports regular alcohol consumption every other day consisting of 1/2 to 1 pint of vodka. Patient oriented to self, place, year, but reports that it is the end of July. Patient denies headaches, chest pain, SOB, abdominal pain, nausea, v omiting, diarrhea, dysuria, or fever. ED course: vitals: 98.6, 143 beats/min, 136/82, resp 16, O2 99% room air CBC: 19.2>12.4/37.7<133 coags: PT 20.0, INR 1.8, aPTT 33.1 CMP: 132/3.5, 86/22, 15/2.0, glucose 87, AST 271, ALT 41, alk phos 324 troponin: 0.0460 lipase 423 VBG: pO2 44, pH 7.50, pCO2 38, HCO3 29.3, lactate 5.6 alcohol: <10 EKG: sinus tachycardia, no acute ST elevation/depression, no blocks CXR: (preliminary) no acute disease process CT head: pending Magnesium sulfate: 1 gm IV once IVF NS 1L bolus IVF NS 1L bolus vancomycin 1 gm IV once Zosyn 3.375 gm IV once PMD: none PMH: none meds: none allergies: NKDA PSH: right inguinal hernia repair Fam: denies fam Hx of HTN, DM2 SOC: denies smoking and drugs, reports drinking 1/2 to 1 pint of vodka every other day last drink was about 2 days ago ROS: 12 points assessed and negative unless otherwise reported in HPI Present on Admission - Present on Admission Any Indicators Present on Admission: No History of DVT/PE: No History of Uncontrolled Diabetes: No Urinary Catheter: No Decubitus Ulcer Present: No Review of Systems - Review of Systems All systems: reviewed and no additional remarkable complaints except - Constitutional Constitutional: absent: Chills, Fever, Headache - EENT Eyes: absent: Change in Vision - Cardiovascular Cardiovascular: absent: Chest Pain - Respiratory Respiratory: absent: Dyspnea - Gastrointestinal Gastrointestinal: absent: Abdominal Pain, Diarrhea, Nausea, Vomiting - Genitourinary Genitourinary: absent: Dysuria - Integumentary Integumentary: absent: Rash - Neurological Neurological: Dizziness. absent: Headaches, Tremor Past Patient History - Past Medical History & Family History Past Medical History?: Yes - Past Social History Smoking Status: Unknown If Ever Smoked - CARDIAC Hx Cardiac Disorders: No - PULMONARY Hx Respiratory Disorders: No - NEUROLOGICAL Hx Neurological Disorder: No - HEENT Hx HEENT Problems: No - RENAL Hx Chronic Kidney Disease: No - ENDOCRINE/METABOLIC Hx Endocrine Disorders: No - HEMATOLOGICAL/ONCOLOGICAL Hx Blood Disorders: No - INTEGUMENTARY Hx Dermatological Problems: No - MUSCULOSKELETAL/RHEUMATOLOGICAL Hx Musculoskeletal Disorders: No - GASTROINTESTINAL Hx Gastrointestinal Disorders: No - GENITOURINARY/GYNECOLOGICAL Hx Genitourinary Disorders: No - PSYCHIATRIC Hx Psychophysiologic Disorder: No - SURGICAL HISTORY Hx Herniorrhaphy: Yes Hx Orthopedic Surgery: Yes (Right shoulder surgery) - ANESTHESIA Hx Anesthesia: Yes Hx Anesthesia Reactions: No Hx Malignant Hyperthermia: No Meds Allergies/Adverse Reactions: Allergies Allergy/AdvReac Type Severity Reaction Status Date / Time No Known Allergies Allergy Verified 07/02/18 21:23 Physical Exam - Constitutional Appears: Non-toxic, No Acute Distress - Head Exam Head Exam: ATRAUMATIC, NORMAL INSPECTION, NORMOCEPHALIC - Eye Exam Eye Exam: EOMI, Normal appearance, PERRL - ENT Exam ENT Exam: Mucous Membranes Moist - Neck Exam Neck exam: Positive for: Full Rom. Negative for: Tenderness - Respiratory Exam Respiratory Exam: Clear to Auscultation Bilateral. absent: Accessory Muscle Use, Decreased Breath Sounds, Rales, Rhonchi, Wheezes, Respiratory Distress - Cardiovascular Exam Cardiovascular Exam: Tachycardia, REGULAR RHYTHM - GI/Abdominal Exam GI & Abdominal Exam: Normal Bowel Sounds, Soft. absent: Distended, Tenderness - Extremities Exam Extremities exam: Positive for: normal inspection. Negative for: calf tenderness, pedal edema, tenderness - Neurological Exam Neurological exam: Alert Additional comments: oriented to self, place, and year, thinks it is the end of July negative - Skin Skin Exam: Dry, Intact, Normal Color, Warm Results - Vital Signs Recent Vital Signs: Last Vital Signs Temp 98.6 F 07/03/18 01:41 Pulse 143 H 07/03/18 01:41 Resp 16 07/03/18 01:41 BP 136/82 07/03/18 01:41 Pulse Ox 99 07/02/18 22:52 - Labs Result Diagrams: 07/02/18 22:30 07/02/18 22:30 Labs: Laboratory Results - last 24 hr 07/02/18 07/02/18 07/02/18 22:30 22:30 22:30 WBC 19.2 H D RBC 3.77 L Hgb 12.4 Hct 37.7 MCV 100.0 H MCH 32.8 H MCHC 32.8 L RDW 13.3 Plt Count 133 MPV 8.9 Neut % (Auto) 87.7 H Lymph % (Auto) 5.1 L [place] % (Auto) 6.8 Eos % (Auto) 0.1 Baso % (Auto) 0.3 Neut # (Auto) 16.9 H Lymph # (Auto) 1.0 [place] # (Auto) 1.3 H Eos # (Auto) 0.0 Baso # (Auto) 0.1 Neutrophils % (Manual) 84 H Band Neutrophils % 3 H Lymphocytes % (Manual) 7 L Reactive Lymphs % 1 H Monocytes % (Manual) 5 Platelet Estimate Normal Hypochromasia (manual) Slight Anisocytosis (manual) Slight PT INR APTT pO2 VBG pH VBG pCO2 VBG HCO3 VBG Total CO2 VBG O2 Sat (Calc) VBG Base Excess VBG Potassium Glucose Lactate FiO2 Crit Value Called To Crit Value Called By Crit Value Read Back Blood Gas Notified Time Sodium 132 Potassium 3.5 L Chloride 86 L Carbon Dioxide 22 Anion Gap 28 H BUN 15 Creatinine 2.0 H Est GFR ( Amer) 41 Est GFR (Non-Af Amer) 33 Random Glucose 87 Calcium 8.3 L Phosphorus 2.7 Magnesium 1.1 L Total Bilirubin 5.9 H Direct Bilirubin 4.6 H AST 271 H D ALT 41 Alkaline Phosphatase 324 H D Ammonia 42 CK-MB (Mass) 1.56 Troponin I 0.0460 Total Protein 7.0 Albumin 3.2 L Globulin 3.8 Albumin/Globulin Ratio 0.8 L Lipase 423 H Venous Blood Potassium Alcohol, Quantitative < 10 07/02/18 07/02/18 07/03/18 22:30 22:33 02:12 WBC RBC Hgb Hct MCV MCH MCHC RDW Plt Count MPV Neut % (Auto) Lymph % (Auto) [place] % (Auto) Eos % (Auto) Baso % (Auto) Neut # (Auto) Lymph # (Auto) [place] # (Auto) Eos # (Auto) Baso # (Auto) Neutrophils % (Manual) Band Neutrophils % Lymphocytes % (Manual) Reactive Lymphs % Monocytes % (Manual) Platelet Estimate Hypochromasia (manual) Anisocytosis (manual) PT 20.0 H INR 1.8 APTT 33.1 pO2 30 44 VBG pH 7.49 H 7.50 H VBG pCO2 35 L 38 L VBG HCO3 26.8 29.3 VBG Total CO2 27.8 30.8 H VBG O2 Sat (Calc) 61.2 87.2 H VBG Base Excess 3.5 H 6.1 H VBG Potassium 3.1 L 2.8 L Glucose 87 92 Lactate 13.5 H* 5.6 H* FiO2 21.0 21.0 Crit Value Called To lynnette Miller md, rishi md Crit Value Called By [facility] Crit Value Read Back Y Y Blood Gas Notified Time 2242 224 Sodium 130.0 L 138.0 Potassium Chloride 84.0 L 86.0 L Carbon Dioxide Anion Gap BUN Creatinine Est GFR ( Amer) Est GFR (Non-Af Amer) Random Glucose Calcium Phosphorus Magnesium Total Bilirubin Direct Bilirubin AST ALT Alkaline Phosphatase Ammonia CK-MB (Mass) Troponin I Total Protein Albumin Globulin Albumin/Globulin Ratio Lipase Venous Blood Potassium 3.1 L 2.8 L Alcohol, Quantitative Assessment & Plan (1) Altered mental status Status: Acute (2) Dizziness Status: Chronic (3) History of alcohol abuse Status: Chronic - Assessment and Plan (Free Text) Assessment: 68 y/o man w/ no known pmh brought to the ED for AMS Plan: AMS - mentation improved - tachycardic - CBC: 19.2>12.4/37.7<133 - coags: PT 20.0, INR 1.8, aPTT 33.1 - CMP: 132/3.5, 86/22, 15/2.0, glucose 87, AST 271, ALT 41, alk phos 324 - troponin: 0.0460 - lipase 423 - VBG: pO2 44, pH 7.50, pCO2 38, HCO3 29.3, lactate 5.6 - alcohol: <10 - EKG: sinus tachycardia, no acute ST elevation/depression, no blocks - CXR: (preliminary) no acute disease process - CT head: pending - Magnesium sulfate: 1 gm IV once - IVF NS 1L bolus - IVF NS 1L bolus - vancomycin 1 gm IV once - Zosyn 3.375 gm IV once - f/u CBC, CMP - IVF D5 1/2 NS w/ multivitamin, thiamine, and folic acid - monitor for acute changes - admit to Tele Dizziness - chronic - BP stable - f/u orthostatic BP - monitor for acute changes Hx of alcohol abuse - reports chronic heavy drinking - last drink about 2 days ago - CIWA score 4 - c/w CIWA protocol - monitor for acute changes Prophylactic measures - DVT: Heparin 5000 units SC Q12h <Jose Alfredo Martinez A - Last Filed: 07/03/18 09:32> Results - Vital Signs Recent Vital Signs: Last Vital Signs Temp 98.4 F 07/03/18 07:30 Pulse 106 H 07/03/18 07:30 Resp 15 07/03/18 07:30 BP 147/82 07/03/18 07:30 Pulse Ox 96 07/03/18 07:30 - Labs Result Diagrams: 07/03/18 05:35 07/03/18 05:35 Labs: Laboratory Results - last 24 hr 07/02/18 07/02/18 07/02/18 22:30 22:30 22:30 WBC 19.2 H D RBC 3.77 L Hgb 12.4 Hct 37.7 MCV 100.0 H MCH 32.8 H MCHC 32.8 L RDW 13.3 Plt Count 133 MPV 8.9 Neut % (Auto) 87.7 H Lymph % (Auto) 5.1 L [place] % (Auto) 6.8 Eos % (Auto) 0.1 Baso % (Auto) 0.3 Neut # (Auto) 16.9 H Lymph # (Auto) 1.0 [place] # (Auto) 1.3 H Eos # (Auto) 0.0 Baso # (Auto) 0.1 Neutrophils % (Manual) 84 H Band Neutrophils % 3 H Lymphocytes % (Manual) 7 L Reactive Lymphs % 1 H Monocytes % (Manual) 5 Platelet Estimate Normal Hypochromasia (manual) Slight Anisocytosis (manual) Slight PT INR APTT pO2 VBG pH VBG pCO2 VBG HCO3 VBG Total CO2 VBG O2 Sat (Calc) VBG Base Excess VBG Potassium Glucose Lactate FiO2 Crit Value Called To Crit Value Called By Crit Value Read Back Blood Gas Notified Time Sodium 132 Potassium 3.5 L Chloride 86 L Carbon Dioxide 22 Anion Gap 28 H BUN 15 Creatinine 2.0 H Est GFR ( Amer) 41 Est GFR (Non-Af Amer) 33 Random Glucose 87 Calcium 8.3 L Phosphorus 2.7 Magnesium 1.1 L Total Bilirubin 5.9 H Direct Bilirubin 4.6 H AST 271 H D ALT 41 Alkaline Phosphatase 324 H D Ammonia 42 Total Creatine Kinase CK-MB (Mass) 1.56 Troponin I 0.0460 Total Protein 7.0 Albumin 3.2 L Globulin 3.8 Albumin/Globulin Ratio 0.8 L Lipase 423 H Venous Blood Potassium Alcohol, Quantitative < 10 07/02/18 07/02/18 07/03/18 22:30 22:33 02:12 WBC RBC Hgb Hct MCV MCH MCHC RDW Plt Count MPV Neut % (Auto) Lymph % (Auto) [place] % (Auto) Eos % (Auto) Baso % (Auto) Neut # (Auto) Lymph # (Auto) [place] # (Auto) Eos # (Auto) Baso # (Auto) Neutrophils % (Manual) Band Neutrophils % Lymphocytes % (Manual) Reactive Lymphs % Monocytes % (Manual) Platelet Estimate Hypochromasia (manual) Anisocytosis (manual) PT 20.0 H INR 1.8 APTT 33.1 pO2 30 44 VBG pH 7.49 H 7.50 H VBG pCO2 35 L 38 L VBG HCO3 26.8 29.3 VBG Total CO2 27.8 30.8 H VBG O2 Sat (Calc) 61.2 87.2 H VBG Base Excess 3.5 H 6.1 H VBG Potassium 3.1 L 2.8 L Glucose 87 92 Lactate 13.5 H* 5.6 H* FiO2 21.0 21.0 Crit Value Called To lynnette Miller md, rishi md Crit Value Called By [facility] Crit Value Read Back Y Y Blood Gas Notified Time 2243 224 Sodium 130.0 L 138.0 Potassium Chloride 84.0 L 86.0 L Carbon Dioxide Anion Gap BUN Creatinine Est GFR ( Amer) Est GFR (Non-Af Amer) Random Glucose Calcium Phosphorus Magnesium Total Bilirubin Direct Bilirubin AST ALT Alkaline Phosphatase Ammonia Total Creatine Kinase CK-MB (Mass) Troponin I Total Protein Albumin Globulin Albumin/Globulin Ratio Lipase Venous Blood Potassium 3.1 L 2.8 L Alcohol, Quantitative 07/03/18 07/03/18 07/03/18 05:35 05:35 08:45 WBC 17.5 H RBC 3.71 L Hgb 12.2 Hct 38.1 MCV 102.5 H D MCH 32.9 H MCHC 32.1 L RDW 13.7 Plt Count 108 L D MPV 8.5 Neut % (Auto) 82.8 H Lymph % (Auto) 10.2 L [place] % (Auto) 6.7 Eos % (Auto) 0.1 Baso % (Auto) 0.2 Neut # (Auto) 14.5 H Lymph # (Auto) 1.8 [place] # (Auto) 1.2 H Eos # (Auto) 0.0 Baso # (Auto) 0.0 Neutrophils % (Manual) Band Neutrophils % Lymphocytes % (Manual) Reactive Lymphs % Monocytes % (Manual) Platelet Estimate Hypochromasia (manual) Anisocytosis (manual) PT INR APTT pO2 VBG pH VBG pCO2 VBG HCO3 VBG Total CO2 VBG O2 Sat (Calc) VBG Base Excess VBG Potassium Glucose Lactate FiO2 Crit Value Called To Crit Value Called By Crit Value Read Back Blood Gas Notified Time Sodium 132 Potassium 3.4 L Chloride 93 L Carbon Dioxide 25 Anion Gap 17 BUN 12 Creatinine 1.2 Est GFR ( Amer) > 60 Est GFR (Non-Af Amer) > 60 Random Glucose 91 Calcium 7.1 L Phosphorus Magnesium Total Bilirubin 5.4 H Direct Bilirubin AST 232 H ALT 47 Alkaline Phosphatase 277 H Ammonia Total Creatine Kinase 99 CK-MB (Mass) Troponin I Total Protein 6.3 Albumin 2.6 L Globulin 3.7 Albumin/Globulin Ratio 0.7 L Lipase Venous Blood Potassium Alcohol, Quantitative Attending/Attestation - Attestation I have personally seen and examined this patient.: Yes I have fully participated in the care of the patient.: Yes I have reviewed all pertinent clinical information: Yes Notes (Text): 07/03/18 09:19 I saw, examined and discussed this case with Dr Dolan. I agree with the assessment and plan outlined above. Mr Montelongo is a 68 years old male who has hx of alcohol abuse. He was brought to the Ed being found in a car in an Altered Mental Status. In the ED his WBC was 1 9,ooo with Lactic Acid 13.5. A&P #. AMS secondary to Metabolic encephalopathy but most likely secondary to a Alcohol withdrawal seizure. Infection will be ruled out with blood and urine cultures.. He received Vancomycin and Zosyn in the Ed. the patient will be treated for Alcohol withdrawal. #. Leukocytosis, Reactive vs secondary to infection. - Follow WBC #. Lactatemia with a Ph of 7.49 most likely secondary to seizure - IV Fluids - follow lactate #. 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 Acute Renal failure - IV fluids Jose Alfredo Martinez MD
[2018-07-03] MEDS: Multivitamin (MVI) 10 ML, Thiamine 100 MG, Folic Acid 1 MG in Dextrose 5%/0.45% NS 1,00... IV SCH ×2 (04:35→16:18)
[2018-07-03 06:45] LABS: BASO % 0.2 % (0.0-2.0); EOS % 0.1 % (0.0-4.0); HEMOGLOBIN 12.2 g/dL (12.0-18.0); LYMPH # 1.8 K/uL (1.0-4.3); LYMPH % 10.2 % (20.0-40.0); MEAN CELL VOLUME 102.5 fl (80.0-94.0); MEAN CORPUSCULAR HEMOGLOBIN 32.9 pg (27.0-31.0); MEAN CORPUSCULAR HGB CONC 32.1 g/dL (33.0-37.0); MEAN PLATELET VOLUME 8.5 fl (7.2-11.7); MONO # 1.2 K/uL (0.0-0.8); MONO % 6.7 % (0.0-10.0); NEUT # 14.5 K/uL (1.8-7.0); NEUT % 82.8 % (50.0-75.0); NRBC % 0.1 % (0.0-0.0); RBC 3.71 Mil/uL (4.40-5.90); RED CELL DISTRIBUTION WIDTH 13.7 % (11.5-14.5); WHITE BLOOD COUNT 17.5 K/uL (4.8-10.8)
[2018-07-03 06:50] LABS: ALB/GLOB RATIO 0.7 (1.0-2.1); ALBUMIN 2.6 g/dL (3.5-5.0); BLOOD UREA NITROGEN 12 mg/dl (9-20); CALCIUM 7.1 mg/dL (8.4-10.2); GFR NON-AFRICAN AMERICAN > 60
[2018-07-03 06:52] LABS: ALT/SGPT 47 U/L (21-72); AST/SGOT 232 U/L (17-59)
--- NOTE | 2018-07-03 08:53 | CARD ---
APPROVED REPORT Date of service: 07/03/2018 EKG Measurement Heart [id number] <Conclusion> Sinus tachycardia prolonged QT abnormal ECG
--- NOTE | 2018-07-03 11:40 | RAD ---
Date of service: 07/02/2018 HISTORY: AMS COMPARISON: Frontal chest radiograph 05/04/2018. FINDINGS: LUNGS: Diminished inspiratory volume. No acute airspace disease bilaterally. PLEURA: No significant pleural effusion identified, no pneumothorax apparent. CARDIOVASCULAR: Normal. OSSEOUS STRUCTURES: No significant abnormalities. VISUALIZED UPPER ABDOMEN: Normal. OTHER FINDINGS: None. IMPRESSION: Diminished inspiratory volume in the interval. No acute airspace disease bilaterally. No acute cardiovascular changes.
--- NOTE | 2018-07-03 12:53 | CT ---
Date of service: 07/02/2018 PROCEDURE: CT HEAD WITHOUT CONTRAST. HISTORY: AMS COMPARISON: 05/04/2018. TECHNIQUE: Axial computed tomography images were obtained through the head/brain without intravenous contrast. Supplemental Coronal and Sagittal projections created and reviewed. Radiation dose: Total exam DLP = 777.70 mGy-cm. This CT exam was performed using one or more of the following dose reduction techniques: Automated exposure control, adjustment of the mA and/or kV according to patient size, and/or use of iterative reconstruction technique. FINDINGS: HEMORRHAGE: No intracranial hemorrhage. BRAIN: No mass effect or edema. No atrophy or chronic microvascular ischemic changes. VENTRICLES: Unremarkable. No hydrocephalus. CALVARIUM: Unremarkable. PARANASAL SINUSES: Unremarkable as visualized. No significant inflammatory changes. MASTOID AIR CELLS: Unremarkable as visualized. No inflammatory changes. OTHER FINDINGS: None. IMPRESSION: No acute intracranial abnormalities. No significant findings to account for the clinical presentation. No significant interval change compared to the prior examination(s). Concordant results (preliminary interpretation) provided by [facility]. Procedure Completed: 23:32. Preliminary Report: Dictated and Authenticated: 23:52. Final Interpretation: 12:51
[2018-07-03] MEDS ORDERED: Influenza Vaccine (5 YR UP)/PF 60 MCG/0.5 ML SYR IM ONE (15:00)
[2018-07-03] MEDS ORDERED: Pneumococcal 23-Valent Vaccine IM ONE (15:00)
[2018-07-03 16:02] LABS: PROLACTIN 25.2 ng/mL (3.7-17.9)
[2018-07-03] MEDS: Piperacillin/Tazobact 3.375 GM in Sodium Chloride 0.9% 100 ML IVPB SCH ×3 (16:10→22:00)
[2018-07-03 18:06] LABS: SQUAMOUS EPITHIAL < 1 /hpf (0-5); URINE BILIRUBIN SMALL (NEGATIVE); URINE BLOOD NEGATIVE (NEGATIVE); URINE CLARITY CLOUDY (Clear); URINE COLOR AMBER (YELLOW); URINE GLUCOSE (UA) NEG (Normal); URINE HYALINE CAST 0-2 /hpf (0-2); URINE LEUKOCYTE ESTERASE NEG Leu/uL (Negative); URINE PROTEIN 30 mg/dL (NEGATIVE)
[2018-07-03 18:20] LABS: BARBITURATES, UR NEGATIVE (NEGATIVE); BENZODIAZEPINES, UR NEGATIVE (NEGATIVE); OPIATES, UR NEGATIVE (NEGATIVE); PHENCYCLIDINE, UR NEGATIVE (NEGATIVE)
[2018-07-04] MEDS: Piperacillin/Tazobact 3.375 GM in Sodium Chloride 0.9% 100 ML IVPB SCH ×4 (04:19→21:42)
[2018-07-04 07:04] LABS: ALB/GLOB RATIO 0.7 (1.0-2.1); ALBUMIN 2.5 g/dL (3.5-5.0); ALT/SGPT 51 U/L (21-72); AST/SGOT 267 U/L (17-59); BLOOD UREA NITROGEN 12 mg/dl (9-20); CALCIUM 7.2 mg/dL (8.4-10.2); GFR NON-AFRICAN AMERICAN > 60
[2018-07-04 07:46] LABS: BASO # 0.1 K/uL (0.0-0.2); BASO % 0.5 % (0.0-2.0); EOS # 0.1 K/uL (0.0-0.7); HEMOGLOBIN 12.7 g/dL (12.0-18.0); LYMPH # 1.2 K/uL (1.0-4.3); LYMPH % 8.5 % (20.0-40.0); MEAN CELL VOLUME 100.8 fl (80.0-94.0); MEAN CORPUSCULAR HEMOGLOBIN 33.8 pg (27.0-31.0); MEAN CORPUSCULAR HGB CONC 33.5 g/dL (33.0-37.0); MEAN PLATELET VOLUME 8.4 fl (7.2-11.7); MONO # 0.9 K/uL (0.0-0.8); MONO % 6.5 % (0.0-10.0); NEUT % 83.5 % (50.0-75.0); NRBC % 0.1 % (0.0-0.0); RBC 3.75 Mil/uL (4.40-5.90); RED CELL DISTRIBUTION WIDTH 13.4 % (11.5-14.5); WHITE BLOOD COUNT 14.4 K/uL (4.8-10.8)
[2018-07-04] MEDS ORDERED: Magnesium Sulfate 2 gm/50 ml 2 GM/50 ML BAG IVPB ONE (08:02)
[2018-07-04] MEDS ORDERED: Potassium & Sodium Phosphate PO ONE (08:05)
--- NOTE | 2018-07-04 09:20 | CP.PCM.PN ---
<Norman Spencer - Last Filed: 07/04/18 11:12> Subjective - Date & Time of Evaluation Date of Evaluation: 07/04/18 Time of Evaluation: 09:00 - Subjective Subjective: Patient seen and examined this morning at bedside. Patient was agitated this morning, given Ativan 1mg. Patient is sleeping comfortably, NAD, no acute event overnight, afebrile. Tolerated PO diet. Objective - Vital Signs/Intake and Output Vital Signs (last 24 hours): Temp Pulse Resp BP Pulse Ox 98.1 F 98 H 18 115/76 97 07/04/18 08:07 07/04/18 08:07 07/04/18 08:07 07/04/18 08:07 07/04/18 08:07 - Medications Medications: Current Medications Chlordiazepoxide (Librium) 50 mg PO Q6 [facility] Last Admin: 07/04/18 04:16 Dose: 50 mg Folic Acid (Folic Acid) 1 mg PO DAILY [facility] Last Admin: 07/04/18 08:22 Dose: 1 mg Heparin Sodium (Porcine) (Heparin) 5,000 units SC Q12 [facility]; Protocol Last Admin: 07/04/18 08:22 Dose: 5,000 units Multivitamins/Vitamin C 10 ml/Thiamine HCl 100 mg/ Folic Acid 1 mg/ Dextrose/Sodium Chloride 1,011.2 mls @ 125 mls/hr IV .Q8H6M [facility] Last Admin: 07/03/18 16:18 Dose: Not Given Vancomycin HCl 1 gm/ Sodium (Chloride) 250 mls @ 166.667 mls/hr IVPB DAILY [facility]; Protocol Last Admin: 07/04/18 08:28 Dose: 166.667 mls/hr Piperacillin Sod/Tazobactam (Sod 3.375 gm/ Sodium Chloride) 100 mls @ 100 mls/hr IVPB Q6 [facility]; Protocol Last Admin: 07/04/18 04:19 Dose: 100 mls/hr Potassium Chloride (Potassium Chloride 20 Meq/100 Ml) 100 mls @ 50 mls/hr IVPB Q2 [facility] Stop: 07/04/18 13:59 Thiamine HCl (Vitamin B1 Tab) 100 mg PO DAILY [facility] Last Admin: 07/04/18 08:22 Dose: 100 mg - Labs Labs: 07/04/18 04:20 07/04/18 04:20 PT 20.0 Seconds (9.8-13.1) H 07/02/18 22:30 INR 1.8 07/02/18 22:30 APTT 33.1 Seconds (25.6-37.1) 07/02/18 22:30 - Constitutional Appears: No Acute Distress - Head Exam Head Exam: NORMAL INSPECTION - Eye Exam Eye Exam: Normal appearance, PERRL - ENT Exam ENT Exam: Mucous Membranes Moist - Respiratory Exam Respiratory Exam: Clear to Ausculation Bilateral, NORMAL BREATHING PATTERN - Cardiovascular Exam Cardiovascular Exam: REGULAR RHYTHM, +S1, +S2 - GI/Abdominal Exam GI & Abdominal Exam: Soft, Normal Bowel Sounds - Neurological Exam Additional comments: Patient is sedated, Ativan 1mg given for agitation - Skin Skin Exam: Normal Color Assessment and Plan - Assessment and Plan (Free Text) Assessment: A/P: 68 y/o male admitted for evaluation and treatment of AMS, Alcohol withdrawal, dehaydration, elevated transaminases, ALLISON and leukocytosis. Alcohol Withdrawal, Tachycardia possibly secondary to alcohol withdrawal - Librium 50mg Q6H - C/w Folic acid, Thiamine - C/w CIWA protocol Alter Mental status - Acute, possibly due to Alcohol abuse/withdrawal - Normal Ammonia, and Creatine kinase - Mildly elevated prolactin, consistent with Alcohol use - Elevated procalcitonin 2.57, Normal serum Lactic Acid - Negative urine drug screen - Follow up CXR today, and RPR Leukocytosis: Reactive vs infection - Trending down, Afebrile - C/w Vanco/Zosyn day#2 - Follow up urine and blood Cx (No growth after 24 hours) - Follow up CXR today - Dehydration/ALLISON - Improved s/p IVF Electrolytes imbalance: Hypokalemia/ Hypophosphatemia/ Hypomagnesemia/ Hypocalcemia - Possibly due to chronic alcohol use, replete as needed Elevated AST, AST:ALT ratio >2:1 - Possible due to alcohol use Lactatemia on VB.5-->5.6 - Mildly elevated prolactin, consistent with Alcohol use - Elevated procalcitonin 2.57, Normal serum Lactic Acid Prolonged PT - Possibly due to alcohol DVT PPX - Heprin 5000 U SC Q12 <Gissel Shen - Last Filed: 07/04/18 15:44> Objective - Vital Signs/Intake and Output Vital Signs (last 24 hours): Temp Pulse Resp BP Pulse Ox 97.8 F 93 H 20 101/67 95 07/04/18 12:07 07/04/18 12:07 07/04/18 12:07 07/04/18 12:07 07/04/18 12:07 - Medications Medications: Current Medications Chlordiazepoxide (Librium) 25 mg PO Q6 [facility] Folic Acid (Folic Acid) 1 mg PO DAILY [facility] Last Admin: 07/04/18 08:22 Dose: 1 mg Heparin Sodium (Porcine) (Heparin) 5,000 units SC Q12 [facility]; Protocol Last Admin: 07/04/18 08:22 Dose: 5,000 units Multivitamins/Vitamin C 10 ml/Thiamine HCl 100 mg/ Folic Acid 1 mg/ Dextrose/Sodium Chloride 1,011.2 mls @ 125 mls/hr IV .Q8H6M [facility] Last Admin: 07/03/18 16:18 Dose: Not Given Vancomycin HCl 1 gm/ Sodium (Chloride) 250 mls @ 166.667 mls/hr IVPB DAILY [facility]; Protocol Last Admin: 07/04/18 08:28 Dose: 166.667 mls/hr Piperacillin Sod/Tazobactam (Sod 3.375 gm/ Sodium Chloride) 100 mls @ 100 mls/hr IVPB Q6 [facility]; Protocol Last Admin: 07/04/18 04:19 Dose: 100 mls/hr Thiamine HCl (Vitamin B1 Tab) 100 mg PO DAILY [facility] Last Admin: 07/04/18 08:22 Dose: 100 mg - Labs Labs: 07/04/18 04:20 07/04/18 04:20 PT 20.0 Seconds (9.8-13.1) H 07/02/18 22:30 INR 1.8 07/02/18 22:30 APTT 33.1 Seconds (25.6-37.1) 07/02/18 22:30 Attending/Attestation - Attestation I have personally seen and examined this patient.: Yes I have fully participated in the care of the patient.: Yes I have reviewed all pertinent clinical information, including history, physical exam and plan: Yes Notes (Text): AMS likely sec to ETOH withdrawal and poss Wernicke's Enceph r/o Heaptic Enceph - cont Thiamine PO , Banana Bag - check Ammonia - Librium for withdrawal sxs Abn LFTs (with Elevated Bilirubin ( 5) and AST) 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 SBP - cont empiric IV Zosyn and Vanco Lactic Acidosis ? sec to ETOH r/o infection
[2018-07-04] MEDS: Potassium Chloride 20 mEq 100 ML IVPB SCH ×2 (11:39→13:55)
--- NOTE | 2018-07-04 14:05 | RAD ---
Date of service: 07/04/2018 PROCEDURE: CHEST RADIOGRAPH, 1 VIEW HISTORY: Elevated WBC and Procalcitonin COMPARISON: 07/02/2018 FINDINGS: LUNGS: Clear. No infiltrates or other significant findings. Low lung volumes and elevated right hemidiaphragm remain. PLEURA: No pneumothorax or pleural fluid seen. CARDIOVASCULAR: No radiographic findings to suggest acute or significant cardiovascular disease. OSSEOUS STRUCTURES: No significant abnormalities. VISUALIZED UPPER ABDOMEN: Normal. OTHER FINDINGS: None. IMPRESSION: No active disease.No significant interval change compared to the prior examination(s).
[2018-07-04 16:29] LABS: BLOOD UREA NITROGEN 10 mg/dl (9-20); CALCIUM 7.2 mg/dL (8.4-10.2); GFR NON-AFRICAN AMERICAN > 60
[2018-07-04] MEDS ORDERED: Potassium Phosphate 30 MMOLE in Sodium Chloride 0.9% 250 ML IV ONE (17:02)
[2018-07-04] MEDS ORDERED: Potassium Chloride 20 mEq 100 ML IVPB ONE (17:05)
[2018-07-05] MEDS: Piperacillin/Tazobact 3.375 GM in Sodium Chloride 0.9% 100 ML IVPB SCH ×4 (03:28→21:08)
[2018-07-05 05:57] LABS: BASO # 0.1 K/uL (0.0-0.2); BASO % 0.5 % (0.0-2.0); EOS # 0.1 K/uL (0.0-0.7); EOS % 0.6 % (0.0-4.0); HEMOGLOBIN 12.3 g/dL (12.0-18.0); LYMPH % 7.4 % (20.0-40.0); MEAN CELL VOLUME 99.3 fl (80.0-94.0); MEAN CORPUSCULAR HEMOGLOBIN 33.6 pg (27.0-31.0); MEAN CORPUSCULAR HGB CONC 33.8 g/dL (33.0-37.0); MEAN PLATELET VOLUME 8.2 fl (7.2-11.7); MONO # 1.1 K/uL (0.0-0.8); NEUT # 11.5 K/uL (1.8-7.0); NEUT % 83.5 % (50.0-75.0); RBC 3.66 Mil/uL (4.40-5.90); RED CELL DISTRIBUTION WIDTH 13.6 % (11.5-14.5); WHITE BLOOD COUNT 13.8 K/uL (4.8-10.8)
[2018-07-05 07:25] LABS: ALB/GLOB RATIO 0.6 (1.0-2.1); ALBUMIN 2.3 g/dL (3.5-5.0); ALT/SGPT 55 U/L (21-72); AST/SGOT 240 U/L (17-59); BLOOD UREA NITROGEN 9 mg/dl (9-20); CALCIUM 7.1 mg/dL (8.4-10.2); GFR NON-AFRICAN AMERICAN > 60
--- NOTE | 2018-07-05 08:29 | CP.PCM.PN ---
Addendum entered and electronically signed by Peyton Landrum MD 07/05/18 18:00: Patient was seen and examined bedside. All chart and clinical data reviewed . Case discussed with resident. Agree with assessment and plan . 68 y/o male admitted with ETOH intoxication , dehydration , ALLISON and lewukocytosis At present in telemetry , tachycardic , drowsy but answering questions and following commands. No tremors noted Continue librium , IVF , Thiamine , folixc acid Ativan PRN for agittaion On Avasyst for safety ( was placed on 1 ;1 due to agitation over night) Replace electrolytes , K, Ph , and Mg Original Note: Subjective - Date & Time of Evaluation Date of Evaluation: 07/05/18 Time of Evaluation: 08:50 - Subjective Subjective: Patient seen and examined this morning at bedside. NAD, mildly agitated, alert a nd awake, denies any pain. Afebrile. - : Yoanna Montelongo at bedside, who was explained about working diagnosis and all the questions were answered. EMERGENCY CONTACT# ; Yoanna Montelongo [phone] Objective - Vital Signs/Intake and Output Vital Signs (last 24 hours): Temp Pulse Resp BP Pulse Ox 97.6 F 103 H 18 101/67 95 07/05/18 04:59 07/05/18 04:59 07/05/18 04:59 07/05/18 04:59 07/05/18 04:59 - Medications Medications: Current Medications Chlordiazepoxide (Librium) 25 mg PO Q6 [facility] Last Admin: 07/05/18 03:33 Dose: 25 mg Folic Acid (Folic Acid) 1 mg PO DAILY [facility] Last Admin: 07/04/18 08:22 Dose: 1 mg Heparin Sodium (Porcine) (Heparin) 5,000 units SC Q12 [facility]; Protocol Last Admin: 07/04/18 21:44 Dose: 5,000 units Multivitamins/Vitamin C 10 ml/Thiamine HCl 100 mg/ Folic Acid 1 mg/ Dextrose/Sodium Chloride 1,011.2 mls @ 125 mls/hr IV .Q8H6M [facility] Last Admin: 07/03/18 16:18 Dose: Not Given Vancomycin HCl 1 gm/ Sodium (Chloride) 250 mls @ 166.667 mls/hr IVPB DAILY [facility]; Protocol Last Admin: 07/04/18 08:28 Dose: 166.667 mls/hr Piperacillin Sod/Tazobactam (Sod 3.375 gm/ Sodium Chloride) 100 mls @ 100 mls/hr IVPB Q6 [facility]; Protocol Last Admin: 07/05/18 03:28 Dose: 100 mls/hr Potassium Chloride (Potassium Cl 10meq/50ml Sterile Water) 50 mls @ 50 mls/hr IVPB Q1 [facility] Stop: 07/05/18 11:59 Thiamine HCl (Vitamin B1 Tab) 100 mg PO DAILY [facility] Last Admin: 07/04/18 08:22 Dose: 100 mg - Labs Labs: 07/05/18 04:30 07/05/18 04:30 PT 20.0 Seconds (9.8-13.1) H 07/02/18 22:30 INR 1.8 07/02/18 22:30 APTT 33.1 Seconds (25.6-37.1) 07/02/18 22:30 - Constitutional Appears: No Acute Distress (Alert and awake, mildly agitated, able to give full name and name of the hospital ) - Head Exam Head Exam: NORMAL INSPECTION - Eye Exam Eye Exam: Normal appearance, PERRL - ENT Exam ENT Exam: Mucous Membranes Moist - Neck Exam Neck Exam: Normal Inspection - Respiratory Exam Respiratory Exam: Clear to Ausculation Bilateral, NORMAL BREATHING PATTERN. absent: Accessory Muscle Use, Chest Wall Tenderness, Decreased Breath Sounds, Rhonchi, Wheezes - Cardiovascular Exam Cardiovascular Exam: REGULAR RHYTHM, +S1, +S2 - GI/Abdominal Exam GI & Abdominal Exam: Soft, Hyperactive Bowel Sounds. absent: Distended, Guarding, Rigid, Tenderness, Rebound - Exam Exam: absent: Circumcision, Testicular Tenderness (no visible ulcers on genital, No discharge) - Extremities Exam Extremities Exam: Normal Capillary Refill. absent: Calf Tenderness, Tenderness - Back Exam Back Exam: absent: CVA tenderness (L), CVA tenderness (R) - Neurological Exam Neurological Exam: Alert, Awake (Alert, Awake, Oriented (Able to say his name, name of the hospital and date with out month or year)) - Psychiatric Exam Psychiatric exam: Agitated (mild) - Skin Skin Exam: Normal Color Assessment and Plan - Assessment and Plan (Free Text) Assessment: A/P: 68 y/o male admitted for evaluation and treatment of AMS, Alcohol withdrawal, dehaydration, elevated transaminases, ALLISON and leukocytosis. Alcohol Withdrawal, Tachycardia possibly secondary to alcohol withdrawal - Librium 50mg Q6H - C/w Folic acid, Thiamine - C/w [facility] protocol Alter Mental status - Acute, possibly due to Alcohol abuse/withdrawal - Normal Ammonia, and Creatine kinase - Mildly elevated prolactin, consistent with Alcohol use - Elevated procalcitonin 2.57, Normal serum Lactic Acid - Negative urine drug screen - Negative RPR, No infiltrate on CXR - Ammonia 16 this morning, Follow up with abdo U/S to r/o ascites/cirrhosis/liver changes Leukocytosis unknown etiology: Reactive vs infection - Trending down, Afebrile - C/w Vanco/Zosyn day#3 - Follow up urine and blood Cx (No growth after 48 hours) - Follow up CXR today - Dehydration/ALLISON - Improved s/p IVF Electrolytes imbalance: Hypokalemia/ Hypophosphatemia/ Hypomagnesemia/ Hypocalcemia - Possibly due to chronic alcohol use, replete as needed Elevated AST, AST:ALT ratio >2:1 - Possible due to alcohol use Lactatemia on VBG - Mildly elevated prolactin, consistent with Alcohol use - Elevated procalcitonin 2.57, Normal serum Lactic Acid Prolonged PT - Possibly due to alcohol DVT PPX - Heprin 5000 U SC Q12 EMERGENCY CONTACT# ; Yoanna Montelongo [phone]
[2018-07-05] MEDS: Potassium CL 10 MEQ/50 ML 50 ML IVPB SCH ×4 (09:01→12:36)
--- NOTE | 2018-07-05 15:11 | PQF ---
PROVIDER RESPONSE TEXT: AMS possibly due to Alcohol withdrawal REVIEWER QUERY TEXT: Conflicting Documentation Clarification A single mention Metabolic Encephalopathy and Alcoholic wIthdrawal seizure appears in the record. P lease clarify if the 3 (three) diagnoses are: -- Confirmed and current -- Confirmed, treated and resolved -- Ruled out -- Other, please specify Hospitalist note in the H and P includes: AMS secondary to Metabolic encephalopathy but most likely s econdary to a Alcohol withdrawal seizure. Infection will be ruled out with blood and urine cultures.. He received Vancomycin and Zosy n in the Ed. the patient will be treated for Alcohol withdrawal. #. Leukocytosis, Reactive vs secondary to infection. - Follow WBC #. Lactatemia with a Ph of 7.49 most likely secondary to seizure - IV Fluids - follow lactate #. 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 Acute Renal failure - IV fluids -Signed: 07/05: admitted for eval and trmt. of AMS, Alcohol withdrawal, dehaydration, elevated transam inases, ALLISON and leukocytosis. ----Alcohol Withdrawal, Tachycardia possibly secondary to alcohol withdrawal - Librium 50mg Q6H - C/w Folic acid, Thiamine - C/w [facility] protocol ---Alter Mental status - Acute, possibly due to Alcohol abuse/withdrawal - Normal Ammonia, and Creati ne kinase - Mildly elevated prolactin, consistent with Alcohol use - Elevated procalcitonin 2.57, Nor mal serum Lactic Acid - Negative urine drug screen - Negative RPR, No infiltrate on CXR - Ammonia 16 this morning, Follow up with abdo U/S to r/o ascites/cirrhosis/liver changes ---Leukocytosis unknown etiology: Reactive vs infection - Trending down, Afebrile - C/w Vanco/Zosyn d ay#3 - Follow up urine and blood Cx (No growth after 48 hours) - Follow up CXR today ---Dehydration/ALLISON - Improved s/p IVF ---Electrolytes imbalance: Hypokalemia/ Hypophosphatemia/ Hypomagnesemia/ Hypocalcemia - Possibly due to chronic alcohol use, replete as needed ----Elevated AST, AST:ALT ratio >2:1 - Possible due to alcohol use Lactatemia on VBG - Mildly elevated prolactin, consistent with Alcohol use - Elevated procalcitonin 2 .57, Normal serum Lactic Acid ---Prolonged PT - Possibly due to alcohol The patient's Clinical Indicators include: xx Query created by: Kellen Hill on 07/05/2018 2:26 PM Electronically signed by: Norman Specner 07/05/2018 3:08 PM
--- NOTE | 2018-07-05 15:14 | PQF ---
PROVIDER RESPONSE TEXT: Provider was unable to determine a response for this query. REVIEWER QUERY TEXT: Conflicting Documentation Clarification Etiology of AMS? if known after the work up is completed H and P: Attending signed note at the bottom of the H and P: diagnoses include: #. AMS secondary to Metabolic encephalopathy but most likely secondary to a Alcohol withdrawal seizure. Infection will be ruled out with blood and urine cultures.. He received Vancomycin and Zosyn 07/05 ISigned Resident note: admitted for eval and trmt. of AMS, Alcohol withdrawal, dehaydration, nicci vated transaminases, ALLISON and leukocytosis. dxs. include: Alcohol Withdrawal, Tachycardia possibly secondary to alcohol withdrawal - Librium 50mg Q6H - C/w Folic acid, Thiamine - C/w [facility] protocol ---Alter Mental status - Acute, possibly due to Alcohol abuse/withdrawal - Normal Ammonia, and Creati ne kinase - Mildly elevated prolactin, consistent with Alcohol use - Elevated procalcitonin 2.57, Nor mal serum Lactic Acid - Negative urine drug screen - Negative RPR, No infiltrate on CXR - Ammonia 16 this morning, Follow up with abdo U/S to r/o ascites/cirrhosis/liver changes n in the ED. the patient will be treated for Alcohol withdrawal The patient's Clinical Indicators include: XX Query created by: Kellen Hill on 07/05/2018 2:14 PM Electronically signed by: Norman Spencer 07/05/2018 3:11 PM
[2018-07-05] MEDS ORDERED: Potassium Chloride 20 mEq/15 ml LIQ UD PO ONE (17:55)
[2018-07-06] MEDS: Piperacillin/Tazobact 3.375 GM in Sodium Chloride 0.9% 100 ML IVPB SCH ×4 (03:18→22:36)
[2018-07-06 05:35] LABS: BASO # 0.1 K/uL (0.0-0.2); BASO % 0.6 % (0.0-2.0); EOS # 0.1 K/uL (0.0-0.7); HEMOGLOBIN 14.1 g/dL (12.0-18.0); LYMPH # 1.2 K/uL (1.0-4.3); MEAN CELL VOLUME 99.7 fl (80.0-94.0); MEAN CORPUSCULAR HEMOGLOBIN 33.3 pg (27.0-31.0); MEAN CORPUSCULAR HGB CONC 33.3 g/dL (33.0-37.0); MEAN PLATELET VOLUME 8.4 fl (7.2-11.7); MONO # 1.1 K/uL (0.0-0.8); MONO % 8.3 % (0.0-10.0); NEUT # 10.7 K/uL (1.8-7.0); NEUT % 81.1 % (50.0-75.0); PLATELET COUNT 156 K/uL (130-400); RBC 4.23 Mil/uL (4.40-5.90); RED CELL DISTRIBUTION WIDTH 13.8 % (11.5-14.5); WHITE BLOOD COUNT 13.2 K/uL (4.8-10.8)
[2018-07-06 05:58] LABS: ALB/GLOB RATIO 0.6 (1.0-2.1); ALBUMIN 2.4 g/dL (3.5-5.0); ALT/SGPT 60 U/L (21-72); AST/SGOT 229 U/L (17-59); BLOOD UREA NITROGEN 7 mg/dl (9-20); CALCIUM 7.6 mg/dL (8.4-10.2); GFR NON-AFRICAN AMERICAN > 60
[2018-07-06] MEDS ORDERED: Potassium Chloride 20 mEq ER Tab PO ONE (06:57)
[2018-07-06] MEDS: Potassium Chloride 20 mEq 100 ML IVPB SCH ×2 (08:20→09:12)
--- NOTE | 2018-07-06 10:36 | CP.PCM.PN ---
Addendum entered and electronically signed by Peyton Landrum MD 07/06/18 18:52: Patient was seen and examined bedside. All chart and clinical data reviewed . Case discussed with resident. Agree with assessment and plan . 68 y/o male brought to ER for evaluation for AMS after being found inside of a car altered . He has history of ETOH abuse and found to be dehydrated with electrolyte abnormalities , ALLISON Cr 2 , leukocytosis and elevated lactic acid that normalized after hydration patient admitted to drinking recently 1/2 pint vodka ( ETOH level in admission < 10 ) He was admitted for AMS / metabolic encephalopathy / ETOH withdrawals / ALLISON / electrolyte abnormality At present in telemetry , tachycardic , drowsy but answering questions and following commands, confused at times . No tremors noted Continue librium , IVF , Thiamine , folic acid pablo librium to 25 mg Q8 hours Ativan PRN for agitation On Avasyst for safety Continue replacing electrolytes , K, Ph and Mg Had long discussion with daughter about her fathers condition and all questions answered Abdominal distention noted on exam with present bowel sound and no tenderness Abd US showed fatty liver and generalized ascites KUB showed no free air Will order CT abdomen and monitor closely . Will discuss with IR for abdominal parasenthesis Continue current management . On Vanco and Zosyn empirically ( no source of infection at present found and all cultures are negative ) Addendum entered and electronically signed by Norman Spencer MD 07/06/18 11:13: Abdo U/S: Extensive Bowel gas, Mild hepatomegaly with diffuse fatty infiltration, Generalized ascites noted Original Note: Subjective - Date & Time of Evaluation Date of Evaluation: 07/06/18 Time of Evaluation: 09:00 - Subjective Subjective: Patient seen and examined this morning at bedside. NAD, No acute event overnight, patient is alert, awake and orientated. Had one BM this morning, denies any pain. Afebrile Daughter, Ms. Barnett at bedside: All the question were answered EMERGENCY CONTACT# Daughter# [phone], ; Yoanna Montelongo [phone] Objective - Vital Signs/Intake and Output Vital Signs (last 24 hours): Temp Pulse Resp BP Pulse Ox 97.9 F 85 20 126/84 95 07/06/18 08:49 07/06/18 08:49 07/06/18 08:49 07/06/18 08:49 07/06/18 08:49 - Medications Medications: Current Medications Chlordiazepoxide (Librium) 25 mg PO Q6 [facility] Last Admin: 07/06/18 09:14 Dose: 25 mg Folic Acid (Folic Acid) 1 mg PO DAILY [facility] Last Admin: 07/06/18 08:08 Dose: 1 mg Heparin Sodium (Porcine) (Heparin) 5,000 units SC Q12 [facility]; Protocol Last Admin: 07/06/18 08:10 Dose: 5,000 units Multivitamins/Vitamin C 10 ml/Thiamine HCl 100 mg/ Folic Acid 1 mg/ Dextrose/Sodium Chloride 1,011.2 mls @ 125 mls/hr IV .Q8H6M [facility] Last Admin: 07/03/18 16:18 Dose: Not Given Vancomycin HCl 1 gm/ Sodium (Chloride) 250 mls @ 166.667 mls/hr IVPB DAILY [facility]; Protocol Last Admin: 07/06/18 08:17 Dose: 166.667 mls/hr Piperacillin Sod/Tazobactam (Sod 3.375 gm/ Sodium Chloride) 100 mls @ 100 mls/hr IVPB Q6 [facility]; Protocol Last Admin: 07/06/18 09:06 Dose: 100 mls/hr Potassium Chloride (Potassium Chloride 20 Meq/100 Ml) 100 mls @ 50 mls/hr IVPB Q2 [facility] Stop: 07/06/18 11:59 Last Admin: 07/06/18 09:12 Dose: 50 mls/hr Sodium Phosphate (Potassium/Sodium Phosphate) 250 mg PO DAILY [facility] Last Admin: 07/06/18 09:06 Dose: 250 mg Thiamine HCl (Vitamin B1 Tab) 100 mg PO DAILY [facility] Last Admin: 07/06/18 08:08 Dose: 100 mg - Labs Labs: 07/06/18 05:18 07/06/18 05:18 PT 20.0 Seconds (9.8-13.1) H 07/02/18 22:30 INR 1.8 07/02/18 22:30 APTT 33.1 Seconds (25.6-37.1) 07/02/18 22:30 - Constitutional Appears: No Acute Distress - Head Exam Head Exam: NORMAL INSPECTION - Eye Exam Eye Exam: Normal appearance, PERRL - ENT Exam ENT Exam: Mucous Membranes Moist - Neck Exam Neck Exam: Normal Inspection - Respiratory Exam Respiratory Exam: Clear to Ausculation Bilateral, NORMAL BREATHING PATTERN. absent: Accessory Muscle Use, Chest Wall Tenderness, Decreased Breath Sounds - Cardiovascular Exam Cardiovascular Exam: REGULAR RHYTHM, +S1, +S2 - GI/Abdominal Exam GI & Abdominal Exam: Distended, Hyperactive Bowel Sounds. absent: Tenderness - Extremities Exam Extremities Exam: Normal Capillary Refill, Normal Inspection - Back Exam Back Exam: absent: CVA tenderness (L), CVA tenderness (R) - Neurological Exam Neurological Exam: Alert, Awake Neuro motor strength exam: Left Upper Extremity: 4, Right Upper Extremity: 4, Left Lower Extremity: 4, Right Lower Extremity: 4 - Psychiatric Exam Psychiatric exam: Normal Affect - Skin Skin Exam: Normal Color Assessment and Plan - Assessment and Plan (Free Text) Assessment: A/P: 68 y/o male admitted for evaluation and treatment of AMS, Alcohol withdrawal, dehaydration, elevated transaminases, ALLISON and leukocytosis. Alcohol Withdrawal, Tachycardia possibly secondary to alcohol withdrawal - Librium 50mg Q6H - C/w Folic acid, Thiamine - C/w [facility] protocol Alter Mental status/Metabolic Encephalopathy related to alcohol abuse/Withdrawal - Acute - C/w Librium, Multi-vitamins and electrolytes replacement as needed - Follow up with abdo U/S to r/o ascites/cirrhosis/liver changes Abdominal Distention with hyperactive Bowel sounds/Non-tender - Positive BM - Abdo KUB - Follow up official report for abdo U/S to r/o ascites/cirrhosis/liver changes Leukocytosis unknown etiology: Reactive vs infection - Trending down, Afebrile - C/w Vanco/Zosyn day#4 - Urine Cx negative and blood Cx (No growth after 3 days) - Negative UA and CXR Dehydration/ALLISON - Improved s/p IVF Electrolytes imbalance: Hypokalemia/ Hypophosphatemia/ Hypomagnesemia/ Hypocalcemia - Possibly due to chronic alcohol use, replete as needed Elevated AST, AST:ALT ratio >2:1 - Improving - Possible due to alcohol use Lactatemia on VBG - Mildly elevated prolactin, consistent with Alcohol use - Elevated procalcitonin 2.57, Normal serum Lactic Acid, negative CK Prolonged PT - Possibly due to alcohol DVT PPX - Heprin 5000 U SC Q12 EMERGENCY CONTACT# Makayla Lenz Montelongo [phone] Full Code
--- NOTE | 2018-07-06 11:07 | US ---
Date of service: 07/05/2018 HISTORY: eval liver, check for ascites COMPARISON: None. TECHNIQUE: Sonographic evaluation of the right upper quadrant of the abdomen. FINDINGS: LIVER: Measures 19.5 cm in length. Diffusely increased echogenicity of the liver parenchyma. Consistent with fatty infiltration. No mass. Smooth contour. No intrahepatic biliary ductal dilatation. Please note that the portal venous flow could not be assessed in this patient. This does not necessarily imply portal venous thrombosis. GALLBLADDER: No cholelithiasis. Dependent sludge noted. No mural thickening. Pericholecystic fluid cannot be evaluated in the presence of generalized ascites. Negative sonographic Arthur sign. COMMON BILE DUCT: Common bile duct could not be adequately visualized. PANCREAS: Could not be adequately visualized RIGHT KIDNEY: Measures 10.1 cm in length. Normal echogenicity. No calculus, mass, or hydronephrosis. AORTA: Could not be adequately visualized IVC: Could not be adequately visualized OTHER FINDINGS: Generalized ascites noted IMPRESSION: Grossly limited examination. Patient unable to cooperate for proper positioning and suspension of respiration. Extensive bowel gas. Mild hepatomegaly with diffuse fatty infiltration. Gallbladder sludge without cholelithiasis or evidence of cholecystitis. Portal vein and common bile duct and pancreas could not be adequately visualized. Generalized ascites noted.
--- NOTE | 2018-07-06 13:59 | RAD ---
Date of service: 07/06/2018 HISTORY: Abdominal distention COMPARISON: No prior. FINDINGS: BOWEL: Normal. No obstruction. No free air. BONES: Normal. OTHER FINDINGS: None. IMPRESSION: No active disease.
[2018-07-06 14:16] LABS: BANDS 1 % (0-2); BASOPHIL 1 % (0-2); EOSINOPHIL 1 % (0-7); LYMPHOCYTE 8 % (20-50); METAMYELOCYTE 1 % (0-0); MONOCYTE 10 % (0-10); NEUTROPHIL 78 % (42-75); PLATELET ESTIMATE NORMAL (NORMAL); TOTAL CELLS COUNTED 100
[2018-07-06 14:17] LABS: TOXIC GRANULATION PRESENT
[2018-07-06] MEDS ORDERED: Simethicone 40 mg/0.6 ml Liquid (30 ml) PO ONE (16:49)
[2018-07-06] MEDS ORDERED: Dextrose 5%/0.45% NS 1,000 ML IV SCH (18:30)
[2018-07-06] MEDS ORDERED: Iohexol 240 (50 ml) PO ONE (18:46)
[2018-07-06 19:20] LABS: ABG ALLEN TEST YES; ARTERIAL BLOOD GAS HCO3 28.2 mmol/L (21-28); ARTERIAL BLOOD GAS O2 SAT 95.1 % (95-98); ARTERIAL BLOOD GAS PCO2 32 mm/Hg (35-45); ARTERIAL BLOOD GAS PH 7.53 (7.35-7.45); ARTERIAL BLOOD GAS PO2 58 mm/Hg (80-100); ARTERIAL BLOOD GAS TCO2 27.7 mmol/L (22-28)
[2018-07-07] MEDS: Piperacillin/Tazobact 3.375 GM in Sodium Chloride 0.9% 100 ML IVPB SCH ×4 (05:43→22:38)
[2018-07-07 06:02] LABS: BASO # 0.2 K/uL (0.0-0.2); EOS # 0.1 K/uL (0.0-0.7); EOS % 0.8 % (0.0-4.0); HEMOGLOBIN 14.1 g/dL (12.0-18.0); LYMPH # 1.5 K/uL (1.0-4.3); MEAN CELL VOLUME 100.7 fl (80.0-94.0); MEAN CORPUSCULAR HEMOGLOBIN 33.6 pg (27.0-31.0); MEAN CORPUSCULAR HGB CONC 33.4 g/dL (33.0-37.0); MEAN PLATELET VOLUME 8.4 fl (7.2-11.7); MONO # 1.3 K/uL (0.0-0.8); MONO % 8.6 % (0.0-10.0); NEUT % 79.6 % (50.0-75.0); RBC 4.18 Mil/uL (4.40-5.90); RED CELL DISTRIBUTION WIDTH 14.5 % (11.5-14.5); WHITE BLOOD COUNT 15.1 K/uL (4.8-10.8)
[2018-07-07 06:27] LABS: ALB/GLOB RATIO 0.7 (1.0-2.1); ALBUMIN 2.4 g/dL (3.5-5.0); ALT/SGPT 54 U/L (21-72); AST/SGOT 214 U/L (17-59); BLOOD UREA NITROGEN 6 mg/dl (9-20); CALCIUM 7.8 mg/dL (8.4-10.2); GFR NON-AFRICAN AMERICAN > 60
--- NOTE | 2018-07-07 07:53 | CP.PCM.PN ---
Addendum entered and electronically signed by Peyton Landrum MD 07/07/18 22:34: patient seen and examined bedside . all chart and clinical data reviewed . Case discussed with resident . agree with assessment and plan 68 y/o male brought to ER for evaluation for AMS after being found inside of a car altered.As per family patient has history of alcoholism and lately has been not eating and has been loosing weight . He was found to be dehydrated with electrolyte abnormalities , ALLISON Cr 2 , leukocytosis and elevated lactic acid that normalized after hydration He was admitted for AMS / metabolic encephalopathy / ETOH withdrawals / ALLISON / electrolyte abnormality At present in telemetry , tachycardic , drowsy but answering questions and following commands, confused at times . No tremors noted Cultures with no growth so far Abd Us showed fatty liver with generalized ascites Abdominal parasenthesis ordered to r/o SBP although patient has no tenderness on palpation Ammonia level is normal Will d/c librium to avoid sedation On 1 :1 for safety due to periods of confusion and agitation Changed fluids to D5 1/2 NS with 40 EQ of KCL Ativan PRN for agitation Continue replacing electrolytes , K, Ph and Mg Continue current management . On Vanco and Zosyn empirically ( no source of infection at present found and all cultures are negative ) Placed on high flow due to Hypoexemia on ABG( PO2 58 PCO2 32 ) . At present O2 Sat 99 % F/u CT abdomen Original Note: Subjective - Date & Time of Evaluation Date of Evaluation: 07/07/18 Time of Evaluation: 09:00 - Subjective Subjective: Patient seen and examined this morning at bedside. NAD, sleeping on bed, sedated, arousable. Poor appetite, no diarrhea/constipation, Afebrile, denies any pain. Objective - Vital Signs/Intake and Output Vital Signs (last 24 hours): Temp Pulse Resp BP Pulse Ox 98 F 109 H 18 116/77 97 07/07/18 01:00 07/07/18 05:00 07/07/18 05:00 07/07/18 05:00 07/07/18 05:00 - Medications Medications: Current Medications Chlordiazepoxide (Librium) 25 mg PO Q8 [facility] Last Admin: 07/07/18 01:47 Dose: Not Given Folic Acid (Folic Acid) 1 mg PO DAILY [facility] Last Admin: 07/06/18 08:08 Dose: 1 mg Heparin Sodium (Porcine) (Heparin) 5,000 units SC Q12 [facility]; Protocol Last Admin: 07/06/18 22:34 Dose: Not Given Multivitamins/Vitamin C 10 ml/Thiamine HCl 100 mg/ Folic Acid 1 mg/ Dextrose/Sodium Chloride 1,011.2 mls @ 125 mls/hr IV .Q8H6M [facility] Last Admin: 07/03/18 16:18 Dose: Not Given Vancomycin HCl 1 gm/ Sodium (Chloride) 250 mls @ 166.667 mls/hr IVPB DAILY [facility]; Protocol Last Admin: 07/06/18 08:17 Dose: 166.667 mls/hr Piperacillin Sod/Tazobactam (Sod 3.375 gm/ Sodium Chloride) 100 mls @ 100 ml s/hr IVPB Q6 [facility]; Protocol Last Admin: 07/07/18 05:43 Dose: 100 mls/hr Dextrose/Sodium Chloride (Dextrose 5%/0.45% Ns 1000 Ml) 1,000 mls @ 80 mls/hr IV .[id number] [facility] Stop: 07/07/18 18:21 Last Admin: 07/06/18 18:38 Dose: 80 mls/hr Potassium Chloride (Potassium Chloride 20 Meq/100 Ml) 100 mls @ 50 mls/hr IVPB Q2 [facility] Stop: 07/07/18 11:59 Sodium Phosphate (Potassium/Sodium Phosphate) 250 mg PO DAILY [facility] Last Admin: 07/06/18 09:06 Dose: 250 mg Thiamine HCl (Vitamin B1 Tab) 100 mg PO DAILY [facility] Last Admin: 07/06/18 08:08 Dose: 100 mg - Labs Labs: 07/07/18 04:25 07/07/18 04:25 PT 20.0 Seconds (9.8-13.1) H 07/02/18 22:30 INR 1.8 07/02/18 22:30 APTT 33.1 Seconds (25.6-37.1) 07/02/18 22:30 - Constitutional Appears: No Acute Distress (sedated, arousable) - Head Exam Head Exam: NORMAL INSPECTION - Eye Exam Eye Exam: Normal appearance, PERRL - ENT Exam ENT Exam: Mucous Membranes Moist - Respiratory Exam Respiratory Exam: Clear to Ausculation Bilateral - Cardiovascular Exam Cardiovascular Exam: REGULAR RHYTHM - GI/Abdominal Exam GI & Abdominal Exam: Distended, Soft. absent: Tenderness - Extremities Exam Extremities Exam: Normal Inspection - Neurological Exam Additional comments: sedated, arousable - Skin Skin Exam: Normal Color Assessment and Plan - Assessment and Plan (Free Text) Assessment: A/P: 68 y/o male admitted for evaluation and treatment of AMS, Alcohol withdrawal, dehaydration, elevated transaminases, ALLISON and leukocytosis. Alcohol Withdrawal, Tachycardia possibly secondary to alcohol withdrawal - Librium 10mg Q8H - C/w Folic acid, Thiamine - C/w [facility] protocol Alter Mental status/Metabolic Encephalopathy related to alcohol abuse/Withdrawal - Acute - C/w Librium, Multi-vitamins and electrolytes replacement as needed - Abd US showed fatty liver and generalized ascites Abdominal Distention with hyperactive Bowel sounds/Non-tender - Positive BM - Abd US showed fatty liver and generalized ascites - KUB showed no free air - Follow up abdominal CT - Consider IR for abdominal parasenthesis Leukocytosis unknown etiology: Reactive vs infection - Afebrile - C/w Vanco/Zosyn day#5 - Urine Cx negative and blood Cx (No growth after 4 days) - Negative UA and CXR Dehydration/ALLISON - Improved s/p IVF Electrolytes imbalance: Hypokalemia/ Hypophosphatemia/ Hypomagnesemia/ Hypocalcemia - Possibly due to chronic alcohol use, replete as needed Elevated AST, AST:ALT ratio >2:1 - Improving - Possible due to alcohol use Lactatemia on VBG - Mildly elevated prolactin, consistent with Alcohol use - Elevated procalcitonin 2.57, Normal serum Lactic Acid, negative CK Prolonged PT - Possibly due to alcohol DVT PPX - Heprin 5000 U SC Q12 EMERGENCY CONTACT# Jimmy Lenz Montelongo [phone] Full Code
[2018-07-07] MEDS: Potassium Chloride 20 mEq 100 ML IVPB SCH ×2 (09:44→11:41)
[2018-07-07 13:31] LABS: FOLATE 9.9 ng/mL
--- NOTE | 2018-07-07 13:46 | PCM.SURG1 ---
Surgeon's Initial Post Op Note - Surgeon's Notes Surgeon: Neo Peñaloza MD Booster Pump Oiler: NONE Type of Anesthesia: Local Pre-Operative Diagnosis: POor venous access Operative Findings: US showed patent basilic vein. Post-Operative Diagnosis: Poor venous access Operation Performed: Single lumen picc right basilic vein, 30 cm. Tip in SVC. Specimen/Specimens Removed: NONE Estimated Blood Loss: EBL {In ML}: 2 Blood Products Given: N/A Drains Used: No Drains Post-Op Condition: Fair Date of Surgery/Procedure: 07/07/18 Time of Surgery/Procedure: 13:45
--- NOTE | 2018-07-07 13:56 | VASCULAR ---
PROCEDURE: Date of procedure: 07/07/2018 Procedure: 1. Placement of a right arm PICC with ultrasound and fluoroscopic guidance, CPT 04142 2. PICC tip confirmation with spot radiograph and is in the superior vena cava Medications: 1 percent lidocaine Total Fluoro time: 11.7 Seconds Radiation: 1.09 MGy EBL: 2 cc HISTORY: Poor venous access TECHNIQUE: Following informed consent and procedure time-out, the patient was placed supine on the interventional table and the right arm prepped and draped in the usual sterile fashion. Ultrasound showed a patent and compressible right basilic vein. After the skin was anesthetized with lidocaine, the basilic vein was accessed with micro micropuncture technique using ultrasound guidance. A guidewire was then advanced under fluoroscopic guidance into the superior vena cava. An image documenting ultrasound guidance for vascular access was permanently saved. The length of the single-lumen 4 Lithuanian PICC was trimmed to 30 centimeters and advanced through a peel-away sheath. The PICC was position with tip of PICC confirm a spot radiograph the superior vena cava. The PICC was secured to the patient's skin. The PICC was flushed. A biopatch and sterile dressing was applied. IMPRESSION: Placement of a single-lumen 4 Lithuanian PICC trimmed to 30 centimeters via right basilic vein. The tip of the PICC is confirmed with spot radiograph and is in the superior vena cava.
[2018-07-07] MEDS: Potassium Chl 40 mEq in D5-1/2 1,000 ML IV SCH (22:37)
[2018-07-07] MEDS: Multivitamin (MVI) 10 ML, Thiamine 100 MG, Folic Acid 1 MG in Dextrose 5%/0.45% NS 1,00... IV SCH (22:46)
[2018-07-08] MEDS: Piperacillin/Tazobact 3.375 GM in Sodium Chloride 0.9% 100 ML IVPB SCH ×4 (03:01→22:35)
[2018-07-08 07:07] LABS: BASO # 0.2 K/uL (0.0-0.2); BASO % 0.9 % (0.0-2.0); EOS # 0.3 K/uL (0.0-0.7); EOS % 1.4 % (0.0-4.0); HEMOGLOBIN 12.8 g/dL (12.0-18.0); LYMPH # 1.5 K/uL (1.0-4.3); LYMPH % 7.9 % (20.0-40.0); MEAN CELL VOLUME 100.1 fl (80.0-94.0); MEAN PLATELET VOLUME 8.3 fl (7.2-11.7); MONO # 1.6 K/uL (0.0-0.8); MONO % 8.5 % (0.0-10.0); NEUT # 15.3 K/uL (1.8-7.0); NEUT % 81.3 % (50.0-75.0); RBC 3.88 Mil/uL (4.40-5.90); RED CELL DISTRIBUTION WIDTH 14.5 % (11.5-14.5); WHITE BLOOD COUNT 18.8 K/uL (4.8-10.8)
[2018-07-08 07:36] LABS: ALB/GLOB RATIO 0.6 (1.0-2.1); ALBUMIN 2.2 g/dL (3.5-5.0); ALT/SGPT 54 U/L (21-72); AST/SGOT 187 U/L (17-59); BLOOD UREA NITROGEN 6 mg/dl (9-20); CALCIUM 7.4 mg/dL (8.4-10.2); GFR NON-AFRICAN AMERICAN > 60
[2018-07-08] MEDS ORDERED: Magnesium Sulfate 2 gm/50 ml 2 GM/50 ML BAG IVPB ONE (08:05)
[2018-07-08] MEDS ORDERED: WATER IV STA (08:43)
[2018-07-08] MEDS ORDERED: POTASSIUM PHOSPHATE IV STA (08:43)
[2018-07-08] MEDS ORDERED: DEXTROSE IV STA (08:43)
[2018-07-08] MEDS: Lactulose 10 gm/15 ml Syrup PO SCH (09:35)
--- NOTE | 2018-07-08 10:22 | CP.PCM.PN ---
<Norman Spencer - Last Filed: 07/08/18 11:27> Subjective - Date & Time of Evaluation Date of Evaluation: 07/08/18 Time of Evaluation: 08:30 - Subjective Subjective: Patient seen and examined this morning at bedside. Alert, awake and oriented this morning, librium was stopped yesterday due to sedation. Patient has poor appetite but ate breakfast this morning, 1:[address], had 2 loose BM overnight. Patient denies any pain, breathing comfortable on NC. Objective - Vital Signs/Intake and Output Vital Signs (last 24 hours): Temp Pulse Resp BP Pulse Ox 97.8 F 107 H 20 114/72 98 07/08/18 08:20 07/08/18 08:20 07/08/18 08:20 07/08/18 08:20 07/08/18 08:20 - Medications Medications: Current Medications Folic Acid (Folic Acid) 1 mg PO DAILY [facility] Last Admin: 07/08/18 09:35 Dose: 1 mg Heparin Sodium (Porcine) (Heparin) 5,000 units SC Q12 [facility]; Protocol Last Admin: 07/08/18 09:35 Dose: 5,000 units Multivitamins/Vitamin C 10 ml/Thiamine HCl 100 mg/ Folic Acid 1 mg/ Dextrose/Sodium Chloride 1,011.2 mls @ 125 mls/hr IV .Q8H6M [facility] Last Admin: 07/07/18 22:46 Dose: Not Given Vancomycin HCl 1 gm/ Sodium (Chloride) 250 mls @ 166.667 mls/hr IVPB DAILY [facility]; Protocol Last Admin: 07/08/18 09:38 Dose: 166.667 mls/hr Piperacillin Sod/Tazobactam (Sod 3.375 gm/ Sodium Chloride) 100 mls @ 100 ml s/hr IVPB Q6 [facility]; Protocol Last Admin: 07/08/18 09:42 Dose: 100 mls/hr Potassium Chloride/Dextrose/Sod Cl (Potassium Chl 40 Meq In D5-1/2ns) 1,000 mls @ 100 mls/hr IV .Q10H [facility] Stop: 07/08/18 18:58 Last Admin: 07/07/18 22:37 Dose: 100 mls/hr Potassium Phosphate 6 mmole/ (Dextrose) 252 mls @ 84 mls/hr IV .Q3H [facility] Stop: 07/08/18 11:42 Lactulose (Enulose) 10 gm PO DAILY [facility] Last Admin: 07/08/18 09:35 Dose: 10 gm Sodium Phosphate (Potassium/Sodium Phosphate) 250 mg PO DAILY [facility] Last Admin: 07/08/18 09:40 Dose: 250 mg Thiamine HCl (Vitamin B1 Tab) 100 mg PO TID [facility] Last Admin: 07/08/18 09:38 Dose: 100 mg - Labs Labs: 07/08/18 05:45 07/08/18 05:45 PT 20.0 Seconds (9.8-13.1) H 07/02/18 22:30 INR 1.8 07/02/18 22:30 APTT 33.1 Seconds (25.6-37.1) 07/02/18 22:30 - Constitutional Appears: No Acute Distress - Head Exam Head Exam: NORMAL INSPECTION - Eye Exam Eye Exam: Normal appearance - ENT Exam ENT Exam: Mucous Membranes Moist - Neck Exam Neck Exam: Normal Inspection - Respiratory Exam Respiratory Exam: Clear to Ausculation Bilateral, NORMAL BREATHING PATTERN. absent: Rhonchi, Wheezes - Cardiovascular Exam Cardiovascular Exam: REGULAR RHYTHM, +S1, +S2 - GI/Abdominal Exam GI & Abdominal Exam: Distended, Firm, Hyperactive Bowel Sounds. absent: Rigid, Tenderness, Rebound - Rectal Exam Rectal Exam: NORMAL INSPECTION - Extremities Exam Extremities Exam: Normal Inspection - Back Exam Back Exam: NORMAL INSPECTION - Neurological Exam Neurological Exam: Alert, Awake Neuro motor strength exam: Left Upper Extremity: 3, Right Upper Extremity: 3, Left Lower Extremity: 3, Right Lower Extremity: 3 - Psychiatric Exam Psychiatric exam: Flat Affect - Skin Skin Exam: Normal Color Assessment and Plan - Assessment and Plan (Free Text) Assessment: A/P: 68 y/o male admitted for evaluation and treatment of AMS, Alcohol withdrawal, dehaydration, elevated transaminases, ALLISON and leukocytosis. Alcohol Withdrawal, Tachycardia possibly secondary to alcohol withdrawal - Librium 10mg Q8H was stopped yesterday due to sedation - Ativan PRN - C/w Folic acid, Thiamine - C/w [facility] protocol Alter Mental status/Metabolic Encephalopathy related to alcohol abuse/Withdrawal - Acute - C/w Multi-vitamins, Lactulose, and electrolytes replacement as needed - Abd US showed fatty liver and generalized ascites - IR for abdominal parasenthesis - Follow up chest/abdominal CT - Right PICC placed yesterday - C/w empiric Vanco/Zosyn day#6 Abdominal Distention with hyperactive Bowel sounds/Non-tender - Abd US showed fatty liver and generalized ascites - KUB showed no free air - Follow up Chest/abdominal CT - IR for abdominal parasenthesis to r/o SBP - C/w Lactulose Leukocytosis unknown etiology: Reactive vs infection - Afebrile - C/w Vanco/Zosyn day#6 - Urine Cx negative and blood Cx (No growth after 5 days) - Negative UA and CXR - Follo up CT Dehydration/ALLISON - Improved s/p IVF Electrolytes imbalance: Hypokalemia/ Hypophosphatemia/ Hypomagnesemia/ Hypocalcemia - Possibly due to chronic alcohol use, replete as needed Elevated AST, AST:ALT ratio >2:1 - Improving - Possible due to alcohol use Lactatemia on VBG - Mildly elevated prolactin, consistent with Alcohol use - Elevated procalcitonin 2.57, Normal serum Lactic Acid, negative CK Prolonged PT - Possibly due to alcohol DVT PPX - Heprin 5000 U SC Q12 EMERGENCY CONTACT# ; Yoanna Montelongo [phone] Full Code <AcGissel Susan - Last Filed: 07/08/18 15:11> Objective - Vital Signs/Intake and Output Vital Signs (last 24 hours): Temp Pulse Resp BP Pulse Ox 98.2 F 102 H 18 115/76 99 07/08/18 12:41 07/08/18 12:41 07/08/18 12:41 07/08/18 12:41 07/08/18 12:41 - Medications Medications: Current Medications Folic Acid (Folic Acid) 1 mg PO DAILY [facility] Last Admin: 07/08/18 09:35 Dose: 1 mg Heparin Sodium (Porcine) (Heparin) 5,000 units SC Q12 [facility]; Protocol Last Admin: 07/08/18 09:35 Dose: 5,000 units Multivitamins/Vitamin C 10 ml/Thiamine HCl 100 mg/ Folic Acid 1 mg/ Dextrose/Sodium Chloride 1,011.2 mls @ 125 mls/hr IV .Q8H6M [facility] Last Admin: 07/07/18 22:46 Dose: Not Given Vancomycin HCl 1 gm/ Sodium (Chloride) 250 mls @ 166.667 mls/hr IVPB DAILY [facility]; Protocol Last Admin: 07/08/18 09:38 Dose: 166.667 mls/hr Piperacillin Sod/Tazobactam (Sod 3.375 gm/ Sodium Chloride) 100 mls @ 100 mls/hr IVPB Q6 [facility]; Protocol Last Admin: 07/08/18 09:42 Dose: 100 mls/hr Potassium Chloride/Dextrose/Sod Cl (Potassium Chl 40 Meq In D5-1/2ns) 1,000 mls @ 100 mls/hr IV .Q10H [facility] Stop: 07/08/18 18:58 Last Admin: 07/07/18 22:37 Dose: 100 mls/hr Lactulose (Enulose) 10 gm PO DAILY [facility] Last Admin: 07/08/18 09:35 Dose: 10 gm Sodium Phosphate (Potassium/Sodium Phosphate) 250 mg PO DAILY [facility] Last Admin: 07/08/18 09:40 Dose: 250 mg Thiamine HCl (Vitamin B1 Tab) 100 mg PO TID [facility] Last Admin: 07/08/18 13:45 Dose: 100 mg - Labs Labs: 07/08/18 05:45 07/08/18 05:45 PT 20.0 Seconds (9.8-13.1) H 07/02/18 22:30 INR 1.8 07/02/18 22:30 APTT 33.1 Seconds (25.6-37.1) 07/02/18 22:30 Attending/Attestation - Attestation I have personally seen and examined this patient.: Yes I have fully participated in the care of the patient.: Yes I have reviewed all pertinent clinical information, including history, physical exam and plan: Yes
--- NOTE | 2018-07-08 11:25 | RAD ---
Date of service: 07/08/2018 PROCEDURE: CHEST RADIOGRAPH, 1 VIEW HISTORY: Elevated WBC COMPARISON: 07/04/2018 FINDINGS: LUNGS: Extremely low lung volumes are once again identified with bibasilar atelectasis and probable small effusions. PLEURA: No pneumothorax or pleural fluid seen. CARDIOVASCULAR: Normal. OSSEOUS STRUCTURES: No significant abnormalities. VISUALIZED UPPER ABDOMEN: Normal. OTHER FINDINGS: New right PICC line is noted with its tip in the proximal SVC. IMPRESSION: New right PICC line with its tip in the proximal SVC. Moderate low lung volumes with probable atelectasis and small effusions.
--- NOTE | 2018-07-08 15:57 | CT ---
Date of service: 07/08/2018 PROCEDURE: CT Chest without contrast HISTORY: elevated WBC, COMPARISON: Chest x-ray same day, ultrasound exam 07/05/2018 TECHNIQUE: Contiguous axial images were obtained through the chest without intravenous contrast enhancement. Sagittal and coronal reconstructions were performed. Radiation dose (DLP): 417 mGy-cm. This CT exam was performed using one or more of the following dose reduction techniques: Automated exposure control, adjustment of the mA and/or kV according to patient size, and/or use of iterative reconstruction technique. FINDINGS: LUNGS: There are areas of bilateral posterior compressive atelectasis adjacent to pleural effusions. Some air bronchograms are appreciated inferiorly and posteriorly in the lower lobes. No definite endobronchial lesion is seen. Motion artifact limits evaluation of the interstitial markings although mild interstitial thickening is noted. A portion of this could be related to vascular congestion. MEDIASTINUM: Thoracic inlet is unremarkable. There is enlarged left lobe of the thyroid gland with focal round low-density noted in the left lobe of the thyroid gland suggesting thyroid nodule with possible small curvilinear calcification. This could be further evaluated with ultrasound as clinically indicated. No aortic enlargement is seen. There are some mild scattered right paratracheal and prevascular lymph nodes identified. Heart is mildly enlarged. Lack of contrast limits evaluation of the pulmonary arteries although there are slightly prominent. No gross hilar lymphadenopathy is seen. PLEURA: Bilateral pleural effusions are noted with compressive atelectasis posteriorly. Additional mild fluid is noted within the fissures. BONES: Degenerative changes are seen in the spine. No compression fractures or bone destruction is noted. UPPER ABDOMEN: Is abnormal with significantly enlarged heterogeneous liver consistent with fatty infiltration. Moderate ascites is noted in the upper abdomen. Evaluation of the ducts is limited although no gross common bile duct dilatation is clearly seen. Esophagus is unremarkable. Visualized stomach shows mild fluid-filled density but without definite wall thickening. Duodenum is not adequately identified. Gallbladder shows evidence of some mild high density probably related to chronic sludge. A few tiny gallstones are noted. No definite gallbladder wall thickening is noted.. Visualized pancreas is normal in size. Visualized spleen is normal in size. Adrenal glands are limited but appear normal in size. OTHER FINDINGS: None. IMPRESSION: Bilateral pleural effusions and compressive atelectasis. Possible mild vascular congestion. No gross adenopathy or pericardial effusion. Pleural fluid does not appear to be loculated to suggest empyema. Abnormal appearance of the liver which is enlarged and heterogeneous suggestive of fatty infiltration. Moderate upper abdominal ascites. Probable moderate high density gallbladder sludge without gallbladder wall thickening.
[2018-07-08] MEDS: Potassium Chl 40 mEq in D5-1/2 1,000 ML IV SCH (17:21)
[2018-07-09] MEDS: Piperacillin/Tazobact 3.375 GM in Sodium Chloride 0.9% 100 ML IVPB SCH ×4 (03:22→21:15)
[2018-07-09 05:53] LABS: BASO # 0.3 K/uL (0.0-0.2); BASO % 1.3 % (0.0-2.0); EOS # 0.4 K/uL (0.0-0.7); EOS % 1.9 % (0.0-4.0); HEMOGLOBIN 12.6 g/dL (12.0-18.0); LYMPH # 1.9 K/uL (1.0-4.3); LYMPH % 9.2 % (20.0-40.0); MEAN CORPUSCULAR HEMOGLOBIN 33.3 pg (27.0-31.0); MEAN PLATELET VOLUME 8.3 fl (7.2-11.7); MONO # 2.3 K/uL (0.0-0.8); MONO % 11.1 % (0.0-10.0); NEUT # 15.8 K/uL (1.8-7.0); NEUT % 76.5 % (50.0-75.0); RBC 3.79 Mil/uL (4.40-5.90); RED CELL DISTRIBUTION WIDTH 14.6 % (11.5-14.5); WHITE BLOOD COUNT 20.6 K/uL (4.8-10.8)
[2018-07-09 05:57] LABS: INR 1.8; PROTHROMBIN TIME 20.2 Seconds (9.8-13.1)
[2018-07-09 06:16] LABS: ALB/GLOB RATIO 0.6 (1.0-2.1); ALBUMIN 2.1 g/dL (3.5-5.0); ALT/SGPT 57 U/L (21-72); AST/SGOT 184 U/L (17-59); BLOOD UREA NITROGEN 5 mg/dl (9-20); CALCIUM 7.8 mg/dL (8.4-10.2); GFR NON-AFRICAN AMERICAN > 60
[2018-07-09] MEDS ORDERED: Meropenem 1 GM in Sodium Chloride 0.9% 100 ML IVPB ONE (08:21)
[2018-07-09] MEDS: Lactulose 10 gm/15 ml Syrup PO SCH (08:41)
[2018-07-09] MEDS ORDERED: Vancomycin 500 mg (Oral/Rectal USE) PO SCH ×2 (10:27→17:00)
--- NOTE | 2018-07-09 14:35 | CP.PCM.PN ---
<Ulises Stubbs - Last Filed: 07/09/18 15:00> Subjective - Date & Time of Evaluation Date of Evaluation: 07/09/18 Time of Evaluation: 14:33 - Subjective Subjective: 68 YO M seen resting comfortably with and daughter at bedside. Appears more awake and alert today. No loose stools have been reported today. - Patient denies any complaints this morning. Objective - Vital Signs/Intake and Output Vital Signs (last 24 hours): Temp Pulse Resp BP Pulse Ox 98.1 F 107 H 20 104/73 99 07/09/18 12:36 07/09/18 12:36 07/09/18 12:36 07/09/18 12:36 07/09/18 12:36 - Medications Medications: Current Medications Folic Acid (Folic Acid) 1 mg PO DAILY [facility] Last Admin: 07/09/18 08:41 Dose: 1 mg Multivitamins/Vitamin C 10 ml/Thiamine HCl 100 mg/ Folic Acid 1 mg/ Dextrose/Sodium Chloride 1,011.2 mls @ 125 mls/hr IV .Q8H6M [facility] Last Admin: 07/07/18 22:46 Dose: Not Given Piperacillin Sod/Tazobactam (Sod 3.375 gm/ Sodium Chloride) 100 mls @ 100 mls/hr IVPB Q6 [facility]; Protocol Last Admin: 07/09/18 09:57 Dose: 100 mls/hr Lactulose (Enulose) 10 gm PO DAILY [facility] Last Admin: 07/09/18 08:41 Dose: 10 gm Phytonadione (Vitamin K Inj) 10 mg SC DAILY [facility] Rifaximin (Xifaxan) 550 mg PO BID [facility]; Protocol Sodium Phosphate (Potassium/Sodium Phosphate) 250 mg PO DAILY [facility] Last Admin: 07/09/18 08:42 Dose: 250 mg Thiamine HCl (Vitamin B1 Tab) 100 mg PO TID [facility] Last Admin: 07/09/18 08:42 Dose: 100 mg Vancomycin HCl (Vancocin (Oral/Rectal Use)) 250 mg PO Q6 [facility]; Protocol - Labs Labs: 07/09/18 04:48 07/09/18 04:48 PT 20.2 Seconds (9.8-13.1) H 07/09/18 04:48 INR 1.8 07/09/18 04:48 APTT 33.1 Seconds (25.6-37.1) 07/02/18 22:30 - Constitutional Appears: No Acute Distress - Head Exam Head Exam: NORMAL INSPECTION - Eye Exam Eye Exam: Normal appearance - Respiratory Exam Respiratory Exam: Clear to Ausculation Bilateral, NORMAL BREATHING PATTERN. absent: Rhonchi, Wheezes - Cardiovascular Exam Cardiovascular Exam: REGULAR RHYTHM, +S1, +S2 - GI/Abdominal Exam GI & Abdominal Exam: Distended, Normal Bowel Sounds. absent: Tenderness - Extremities Exam Extremities Exam: Normal Inspection. absent: Calf Tenderness - Neurological Exam Neurological Exam: Alert, Awake, CN II-XII Intact - Skin Skin Exam: Normal Color, Warm Assessment and Plan - Assessment and Plan (Free Text) Assessment: A/P: 68 y/o male admitted for evaluation and treatment of AMS, Alcohol withdrawal, dehydration, elevated transaminases, ALLISON and leukocytosis. Alter Mental status/Metabolic Encephalopathy related to alcohol abuse/Withdrawal - Acute - C/w Multi-vitamins, Lactulose, and electrolytes replacement as needed - Abd US showed fatty liver and generalized ascites - IR for abdominal parasenthesis possibly tomorrow - C/w empiric Vanco/Zosyn day#7 - Start Rifaximin 550 BID today : Day 1 and Meropenum: Abdominal Distention with hyperactive Bowel sounds/Non-tender - Abd US showed fatty liver and generalized ascites - KUB showed no free air - Abdominal U/S Extensive bowl gas. Mild hepatomegaly with diffuse fatty infiltration. Generalized ascitis noted - Follow up Chest/abdominal CT - IR for abdominal parasenthesis to r/o SBP - GI consulted - C/w Lactulose Alcohol Withdrawal, Tachycardia possibly secondary to alcohol withdrawal - D/C librium - Ativan PRN - C/w Folic acid, Thiamine - C/w [facility] protocol Leukocytosis unknown etiology: Reactive vs infection - Afebrile - C/w Vanco/Zosyn day#7 - Urine Cx negative and blood Cx (No growth after 5 days) - Negative UA and CXR -Chest CT: B/L pleural effusions and compressive atlectasis. Moderate abdominal ascites noted on upper abdomen - Start Rifaximin 550 BID today : Day 1 and Meropenum: - ID consulted Electrolytes imbalance: Hypokalemia/ Hypophosphatemia/ Hypomagnesemia/ Hypocalcemia - Possibly due to chronic alcohol use, replete as needed Elevated AST, AST:ALT ratio >2:1 - Improving - Possible due to alcohol use DVT PPX - Heprin 5000 U SC Q12 EMERGENCY CONTACT# Makayla Montelongo [phone] Full Code <Gissel Shen - Last Filed: 07/09/18 15:20> Objective - Vital Signs/Intake and Output Vital Signs (last 24 hours): Temp Pulse Resp BP Pulse Ox 98.1 F 107 H 20 104/73 99 07/09/18 12:36 07/09/18 12:36 07/09/18 12:36 07/09/18 12:36 07/09/18 12:36 - Medications Medications: Current Medications Folic Acid (Folic Acid) 1 mg PO DAILY [facility] Last Admin: 07/09/18 08:41 Dose: 1 mg Heparin Sodium (Porcine) (Heparin) 5,000 units SC Q12 [facility]; Protocol Multivitamins/Vitamin C 10 ml/Thiamine HCl 100 mg/ Folic Acid 1 mg/ Dextrose/Sodium Chloride 1,011.2 mls @ 125 mls/hr IV .Q8H6M [facility] Last Admin: 07/07/18 22:46 Dose: Not Given Piperacillin Sod/Tazobactam (Sod 3.375 gm/ Sodium Chloride) 100 mls @ 100 mls/hr IVPB Q6 [facility]; Protocol Last Admin: 07/09/18 15:05 Dose: 100 mls/hr Lactulose (Enulose) 10 gm PO DAILY [facility] Last Admin: 07/09/18 08:41 Dose: 10 gm Phytonadione (Vitamin K Inj) 10 mg SC DAILY [facility] Last Admin: 07/09/18 14:50 Dose: 10 mg Rifaximin (Xifaxan) 550 mg PO BID [facility]; Protocol Last Admin: 07/09/18 11:53 Dose: 550 mg Sodium Phosphate (Potassium/Sodium Phosphate) 250 mg PO DAILY [facility] Last Admin: 07/09/18 08:42 Dose: 250 mg Thiamine HCl (Vitamin B1 Tab) 100 mg PO TID [facility] Last Admin: 07/09/18 14:55 Dose: 100 mg Vancomycin HCl (Vancocin (Oral/Rectal Use)) 250 mg PO Q6 [facility]; Protocol Last Admin: 07/09/18 15:06 Dose: 250 mg - Labs Labs: 07/09/18 04:48 07/09/18 04:48 PT 20.2 Seconds (9.8-13.1) H 07/09/18 04:48 INR 1.8 07/09/18 04:48 APTT 33.1 Seconds (25.6-37.1) 07/02/18 22:30 Attending/Attestation - Attestation I have personally seen and examined this patient.: Yes I have fully participated in the care of the patient.: Yes I have reviewed all pertinent clinical information, including history, physical exam and plan: Yes Notes (Text): AMS prob sec to Hepatic Encephalopathy, Alcohol Encephalopathy - cont Lactulose - add Rifaximin - cont Thiamine -GI consult Leukocytosis with elevated Procalcitonin poss due to SBP r/o C diff Pt with Cirrhosis with Ascites and Coagulopathy -cont IV Zosyn -ID consulted - Dr Porras - rec to d/c IV Vanco , add PO vanco to empirically treat for C diff and add Rifaximin - IR for Paracentesis - will give Vit K and transfuse FFP prior to Paracentesis Pleural Effusion likely due to Cirrhosis - IR for poss Thoracentesis and Daughter Radha at bedside , discussed Dx and treatment plan Also discussed case with Dr Gomez Consent for transfusion obtained from ( Jessica - [employer] 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
[2018-07-09] MEDS: Phytonadione 10 mg/ml Inj (Adult) SC SCH (14:50)
[2018-07-09] MEDS: Vancomycin 500 mg (Oral/Rectal USE) PO SCH ×3 (15:04→21:13)
--- NOTE | 2018-07-09 17:54 | CP.PCM.CON ---
<JihanYunier - Last Filed: 07/09/18 17:55> History of Present Illness - History of Present Illness History of Present Illness: GI Fellow PGY4, consult note. Seamus Montelongo is 68M with history of alcohol abuse originally presenting for AMS after being found in a car not making sense. He had been drinking alcohol regularly at that time. Since that time, he has been treated in the hospital for alcohol w/d. His WBC have been climbing and he was placed on zosyn and oral vanco for possible SBP vs C. diff colitis. Patient is currently lethargic and clearly altered, falling asleep during exam. I discussed with nursing and there is concern for SBP. There is planned paracentesis and thoracentesis tomorrow. PMHx - colon polyps PSHx - Hernia repair. Colonoscopy x2, last one was ~10yrs ago. Told to repeat study in 5 yrs. FMHx - Denies cancer of colon, stomach, liver. Denies cirrhosis. SocHx - Denies tobacco use. heavy drinker. , lives with family. Unable to obtain further history and ROS from patient. Past Patient History - Past Medical History & Family History Past Medical History?: Yes - Past Social History Smoking Status: Former Smoker - CARDIAC Hx Cardiac Disorders: No - PULMONARY Hx Respiratory Disorders: No - NEUROLOGICAL Hx Neurological Disorder: No - HEENT Hx HEENT Problems: No - RENAL Hx Chronic Kidney Disease: No - ENDOCRINE/METABOLIC Hx Endocrine Disorders: No - HEMATOLOGICAL/ONCOLOGICAL Hx Blood Disorders: No - INTEGUMENTARY Hx Dermatological Problems: No - MUSCULOSKELETAL/RHEUMATOLOGICAL Hx Falls: Yes - GASTROINTESTINAL Hx Gastrointestinal Disorders: No - GENITOURINARY/GYNECOLOGICAL Hx Genitourinary Disorders: No - PSYCHIATRIC Hx Substance Use: No - SURGICAL HISTORY Hx Herniorrhaphy: Yes Hx Orthopedic Surgery: Yes (Right shoulder surgery) - ANESTHESIA Hx Anesthesia: Yes Hx Anesthesia Reactions: No Hx Malignant Hyperthermia: No Meds Allergies/Adverse Reactions: Allergies Allergy/AdvReac Type Severity Reaction Status Date / Time No Known Allergies Allergy Verified 07/02/18 21:23 - Medications Medications: Current Medications Folic Acid (Folic Acid) 1 mg PO DAILY [facility] Last Admin: 07/09/18 08:41 Dose: 1 mg Heparin Sodium (Porcine) (Heparin) 5,000 units SC Q12 [facility]; Protocol Multivitamins/Vitamin C 10 ml/Thiamine HCl 100 mg/ Folic Acid 1 mg/ Dextrose/Sodium Chloride 1,011.2 mls @ 125 mls/hr IV .Q8H6M [facility] Last Admin: 07/07/18 22:46 Dose: Not Given Piperacillin Sod/Tazobactam (Sod 3.375 gm/ Sodium Chloride) 100 mls @ 100 mls/hr IVPB Q6 [facility]; Protocol Last Admin: 07/09/18 15:05 Dose: 100 mls/hr Lactulose (Enulose) 10 gm PO DAILY [facility] Last Admin: 07/09/18 08:41 Dose: 10 gm Phytonadione (Vitamin K Inj) 10 mg SC DAILY [facility] Last Admin: 07/09/18 14:50 Dose: 10 mg Rifaximin (Xifaxan) 550 mg PO BID [facility]; Protocol Last Admin: 07/09/18 11:53 Dose: 550 mg Sodium Phosphate (Potassium/Sodium Phosphate) 250 mg PO DAILY [facility] Last Admin: 07/09/18 08:42 Dose: 250 mg Thiamine HCl (Vitamin B1 Tab) 100 mg PO TID [facility] Last Admin: 07/09/18 14:55 Dose: 100 mg Vancomycin HCl (Vancocin (Oral/Rectal Use)) 250 mg PO Q6 [facility]; Protocol Last Admin: 07/09/18 15:06 Dose: 250 mg Physical Exam - Constitutional Appears: Non-toxic, No Acute Distress, Confused, Chronically Ill - Head Exam Head Exam: NORMAL INSPECTION - Eye Exam Eye Exam: absent: Normal appearance - ENT Exam ENT Exam: Mucous Membranes Moist - Respiratory Exam Respiratory Exam: Clear to Auscultation Bilateral, NORMAL BREATHING PATTERN - Cardiovascular Exam Cardiovascular Exam: REGULAR RHYTHM, +S1, +S2 - GI/Abdominal Exam GI & Abdominal Exam: Distended, Normal Bowel Sounds, Organomegaly, Soft. absent: Tenderness Additional comments: Ascites present - Extremities Exam Extremities exam: Positive for: pedal edema - Neurological Exam Neurological exam: Altered - Psychiatric Exam Psychiatric exam: Flat Affect - Skin Skin Exam: Dry, Normal Color Results - Vital Signs Recent Vital Signs: Last Vital Signs Temp 98.0 F 07/09/18 15:56 Pulse 106 H 07/09/18 15:56 Resp 16 07/09/18 15:56 BP 103/69 07/09/18 15:56 Pulse Ox 96 07/09/18 15:56 - Labs Result Diagrams: 07/09/18 04:48 07/09/18 04:48 Labs: Laboratory Results - last 24 hr 07/09/18 07/09/18 07/09/18 04:48 04:48 04:48 WBC 20.6 H RBC 3.79 L Hgb 12.6 Hct 38.3 MCV 101.0 H MCH 33.3 H MCHC 33.0 RDW 14.6 H Plt Count 191 MPV 8.3 Neut % (Auto) 76.5 H Lymph % (Auto) 9.2 L [place] % (Auto) 11.1 H Eos % (Auto) 1.9 Baso % (Auto) 1.3 Neut # (Auto) 15.8 H Lymph # (Auto) 1.9 [place] # (Auto) 2.3 H Eos # (Auto) 0.4 Baso # (Auto) 0.3 H PT 20.2 H INR 1.8 Sodium 136 Potassium 4.2 Chloride 107 Carbon Dioxide 24 Anion Gap 9 L BUN 5 L Creatinine 0.7 L Est GFR ( Amer) > 60 Est GFR (Non-Af Amer) > 60 Random Glucose 99 Calcium 7.8 L Phosphorus 1.8 L Magnesium 1.6 Total Bilirubin 6.3 H AST 184 H ALT 57 Alkaline Phosphatase 288 H Total Protein 5.7 L Albumin 2.1 L Globulin 3.6 Albumin/Globulin Ratio 0.6 L Procalcitonin HIV-1 Ab Rapid Screen 07/09/18 07/09/18 08:35 08:35 WBC RBC Hgb Hct MCV MCH MCHC RDW Plt Count MPV Neut % (Auto) Lymph % (Auto) [place] % (Auto) Eos % (Auto) Baso % (Auto) Neut # (Auto) Lymph # (Auto) [place] # (Auto) Eos # (Auto) Baso # (Auto) PT INR Sodium Potassium Chloride Carbon Dioxide Anion Gap BUN Creatinine Est GFR ( Amer) Est GFR (Non-Af Amer) Random Glucose Calcium Phosphorus Magnesium Total Bilirubin AST ALT Alkaline Phosphatase Total Protein Albumin Globulin Albumin/Globulin Ratio Procalcitonin 0.99 H HIV-1 Ab Rapid Screen Non reactive Assessment & Plan - Assessment and Plan (Free Text) Assessment: #Decompensated Alcoholic Cirrhosis - MELD-Na 21 #Acute Alcoholic hepatitis - DF 39 #alcohol abuse #Possible SBP/C. diff PLAN: -Would not recommend steroids at this time. Must r/o infection specifically SBP. Agree with paracentesis. -Needs fluid culture, cell count, gram stain, albumin and TP -CT chest and abd u/s reviewed: B/L pleural effusions and moderate ascites. Hepatosteatosis. GB sludge. -Continue zosyn, vanco for now. -Continue lactulose and xifaxan for encephelopathy. Goal 2 BMs per day. Titrated as needed. - Date & Time Date: 07/09/18 Time: 17:58 <Carley Gomez - Last Filed: 07/09/18 21:46> Meds - Medications Medications: Current Medications Folic Acid (Folic Acid) 1 mg PO DAILY [facility] Last Admin: 07/09/18 08:41 Dose: 1 mg Heparin Sodium (Porcine) (Heparin) 5,000 units SC Q12 [facility]; Protocol Last Admin: 07/09/18 21:15 Dose: 5,000 units Piperacillin Sod/Tazobactam (Sod 3.375 gm/ Sodium Chloride) 100 mls @ 100 mls/hr IVPB Q6 [facility]; Protocol Last Admin: 07/09/18 21:15 Dose: 100 mls/hr Dextrose/Sodium Chloride (Dextrose 5%-0.45% Ns 500 Ml) 1,000 mls @ 50 mls/hr IV .Q20H [facility] Stop: 07/10/18 18:12 Lactulose (Enulose) 10 gm PO DAILY [facility] Last Admin: 07/09/18 08:41 Dose: 10 gm Phytonadione (Vitamin K Inj) 10 mg SC DAILY [facility] Last Admin: 07/09/18 14:50 Dose: 10 mg Rifaximin (Xifaxan) 550 mg PO BID [facility]; Protocol Last Admin: 07/09/18 11:53 Dose: 550 mg Sodium Phosphate (Potassium/Sodium Phosphate) 250 mg PO DAILY [facility] Last Admin: 07/09/18 08:42 Dose: 250 mg Thiamine HCl (Vitamin B1 Tab) 100 mg PO TID [facility] Last Admin: 07/09/18 17:56 Dose: 100 mg Vancomycin HCl (Vancocin (Oral/Rectal Use)) 250 mg PO Q6 [facility]; Protocol Last Admin: 07/09/18 21:13 Dose: 250 mg Results - Vital Signs Recent Vital Signs: Last Vital Signs Temp 97.7 F 07/09/18 19:35 Pulse 99 H 07/09/18 19:35 Resp 16 07/09/18 19:35 BP 101/67 07/09/18 19:35 Pulse Ox 98 07/09/18 19:35 - Labs Result Diagrams: 07/09/18 04:48 07/09/18 04:48 Labs: Laboratory Results - last 24 hr 07/09/18 07/09/18 07/09/18 04:48 04:48 04:48 WBC 20.6 H RBC 3.79 L Hgb 12.6 Hct 38.3 MCV 101.0 H MCH 33.3 H MCHC 33.0 RDW 14.6 H Plt Count 191 MPV 8.3 Neut % (Auto) 76.5 H Lymph % (Auto) 9.2 L [place] % (Auto) 11.1 H Eos % (Auto) 1.9 Baso % (Auto) 1.3 Neut # (Auto) 15.8 H Lymph # (Auto) 1.9 [place] # (Auto) 2.3 H Eos # (Auto) 0.4 Baso # (Auto) 0.3 H PT 20.2 H INR 1.8 Sodium 136 Potassium 4.2 Chloride 107 Carbon Dioxide 24 Anion Gap 9 L BUN 5 L Creatinine 0.7 L Est GFR ( Amer) > 60 Est GFR (Non-Af Amer) > 60 Random Glucose 99 Calcium 7.8 L Phosphorus 1.8 L Magnesium 1.6 Total Bilirubin 6.3 H AST 184 H ALT 57 Alkaline Phosphatase 288 H Total Protein 5.7 L Albumin 2.1 L Globulin 3.6 Albumin/Globulin Ratio 0.6 L Procalcitonin HIV-1 Ab Rapid Screen 07/09/18 07/09/18 08:35 08:35 WBC RBC Hgb Hct MCV MCH MCHC RDW Plt Count MPV Neut % (Auto) Lymph % (Auto) [place] % (Auto) Eos % (Auto) Baso % (Auto) Neut # (Auto) Lymph # (Auto) [place] # (Auto) Eos # (Auto) Baso # (Auto) PT INR Sodium Potassium Chloride Carbon Dioxide Anion Gap BUN Creatinine Est GFR ( Amer) Est GFR (Non-Af Amer) Random Glucose Calcium Phosphorus Magnesium Total Bilirubin AST ALT Alkaline Phosphatase Total Protein Albumin Globulin Albumin/Globulin Ratio Procalcitonin 0.99 H HIV-1 Ab Rapid Screen Non reactive Attending/Attestation - Attestation I have personally seen and examined this patient.: Yes I have fully participated in the care of the patient.: Yes I have reviewed all pertinent clinical information: Yes Notes (Text): 07/09/18 21:42 Patient seen at bedside with daughter and at bedside. 68 yr old M with alcohol abuse and dependance admitted with alcoholic hepatitis in setting of alcoholic cirrhosis with active drinking. Hence not a transplant candidate even though MELD na 21. DF calculated as 39 but not a candidate for steroid due to active drinking and suspicion of SBP. Continue zosyn. Give lactulose q 1 hours titrate to 2 Bm/day for HE. 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 Can be evaluated for TIPS. Needs abdominal paracentesis - send for cytology and culture and albumin. NPO till he wakes up. Aspiration precautions. Had long discussion with family regarding cirrhosis, treatment options and complications. Avoid alcohol.
--- NOTE | 2018-07-09 17:58 | CP.PCM.CON ---
History of Present Illness - History of Present Illness History of Present Illness: 68 y old etoh with cirrrhosis and ascites presented with acute mental status changes. Appears sedate and confused and not answering my questions. Past Patient History - Past Medical History & Family History Past Medical History?: Yes - Past Social History Smoking Status: Former Smoker - CARDIAC Hx Cardiac Disorders: No - PULMONARY Hx Respiratory Disorders: No - NEUROLOGICAL Hx Neurological Disorder: No - HEENT Hx HEENT Problems: No - RENAL Hx Chronic Kidney Disease: No - ENDOCRINE/METABOLIC Hx Endocrine Disorders: No - HEMATOLOGICAL/ONCOLOGICAL Hx Blood Disorders: No - INTEGUMENTARY Hx Dermatological Problems: No - MUSCULOSKELETAL/RHEUMATOLOGICAL Hx Falls: Yes - GASTROINTESTINAL Hx Gastrointestinal Disorders: No - GENITOURINARY/GYNECOLOGICAL Hx Genitourinary Disorders: No - PSYCHIATRIC Hx Substance Use: No - SURGICAL HISTORY Hx Herniorrhaphy: Yes Hx Orthopedic Surgery: Yes (Right shoulder surgery) - ANESTHESIA Hx Anesthesia: Yes Hx Anesthesia Reactions: No Hx Malignant Hyperthermia: No Meds Allergies/Adverse Reactions: Allergies Allergy/AdvReac Type Severity Reaction Status Date / Time No Known Allergies Allergy Verified 07/02/18 21:23 - Medications Medications: Current Medications Folic Acid (Folic Acid) 1 mg PO DAILY [facility] Last Admin: 07/09/18 08:41 Dose: 1 mg Heparin Sodium (Porcine) (Heparin) 5,000 units SC Q12 [facility]; Protocol Multivitamins/Vitamin C 10 ml/Thiamine HCl 100 mg/ Folic Acid 1 mg/ Dextrose/Sodium Chloride 1,011.2 mls @ 125 mls/hr IV .Q8H6M [facility] Last Admin: 07/07/18 22:46 Dose: Not Given Piperacillin Sod/Tazobactam (Sod 3.375 gm/ Sodium Chloride) 100 mls @ 100 mls/hr IVPB Q6 [facility]; Protocol Last Admin: 07/09/18 15:05 Dose: 100 mls/hr Lactulose (Enulose) 10 gm PO DAILY [facility] Last Admin: 07/09/18 08:41 Dose: 10 gm Phytonadione (Vitamin K Inj) 10 mg SC DAILY [facility] Last Admin: 07/09/18 14:50 Dose: 10 mg Rifaximin (Xifaxan) 550 mg PO BID [facility]; Protocol Last Admin: 07/09/18 11:53 Dose: 550 mg Sodium Phosphate (Potassium/Sodium Phosphate) 250 mg PO DAILY [facility] Last Admin: 07/09/18 08:42 Dose: 250 mg Thiamine HCl (Vitamin B1 Tab) 100 mg PO TID [facility] Last Admin: 07/09/18 14:55 Dose: 100 mg Vancomycin HCl (Vancocin (Oral/Rectal Use)) 250 mg PO Q6 [facility]; Protocol Last Admin: 07/09/18 15:06 Dose: 250 mg Physical Exam - GI/Abdominal Exam Additional comments: distended soft non tender BS+ Results - Vital Signs Recent Vital Signs: Last Vital Signs Temp 98.0 F 07/09/18 15:56 Pulse 106 H 07/09/18 15:56 Resp 16 07/09/18 15:56 BP 103/69 07/09/18 15:56 Pulse Ox 96 07/09/18 15:56 - Labs Result Diagrams: 07/09/18 04:48 07/09/18 04:48 Labs: Laboratory Results - last 24 hr 07/09/18 07/09/18 07/09/18 04:48 04:48 04:48 WBC 20.6 H RBC 3.79 L Hgb 12.6 Hct 38.3 MCV 101.0 H MCH 33.3 H MCHC 33.0 RDW 14.6 H Plt Count 191 MPV 8.3 Neut % (Auto) 76.5 H Lymph % (Auto) 9.2 L [place] % (Auto) 11.1 H Eos % (Auto) 1.9 Baso % (Auto) 1.3 Neut # (Auto) 15.8 H Lymph # (Auto) 1.9 [place] # (Auto) 2.3 H Eos # (Auto) 0.4 Baso # (Auto) 0.3 H PT 20.2 H INR 1.8 Sodium 136 Potassium 4.2 Chloride 107 Carbon Dioxide 24 Anion Gap 9 L BUN 5 L Creatinine 0.7 L Est GFR ( Amer) > 60 Est GFR (Non-Af Amer) > 60 Random Glucose 99 Calcium 7.8 L Phosphorus 1.8 L Magnesium 1.6 Total Bilirubin 6.3 H AST 184 H ALT 57 Alkaline Phosphatase 288 H Total Protein 5.7 L Albumin 2.1 L Globulin 3.6 Albumin/Globulin Ratio 0.6 L Procalcitonin HIV-1 Ab Rapid Screen 07/09/18 07/09/18 08:35 08:35 WBC RBC Hgb Hct MCV MCH MCHC RDW Plt Count MPV Neut % (Auto) Lymph % (Auto) [place] % (Auto) Eos % (Auto) Baso % (Auto) Neut # (Auto) Lymph # (Auto) [place] # (Auto) Eos # (Auto) Baso # (Auto) PT INR Sodium Potassium Chloride Carbon Dioxide Anion Gap BUN Creatinine Est GFR ( Amer) Est GFR (Non-Af Amer) Random Glucose Calcium Phosphorus Magnesium Total Bilirubin AST ALT Alkaline Phosphatase Total Protein Albumin Globulin Albumin/Globulin Ratio Procalcitonin 0.99 H HIV-1 Ab Rapid Screen Non reactive Assessment & Plan - Assessment and Plan (Free Text) Assessment: Cirrhosis with ascites with suspected spontaneous bacterial peritonitis Agree with zosyn. continue for a total of 7-10 days d/c vancomycin i.v start Vancomycin 250mg po qid #10 Rifaximin 550mg po bid Abdominal paracentesis is recommended. PT INR of 1.6 not reflective of hypocoagulation. 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
[2018-07-10] MEDS: Piperacillin/Tazobact 3.375 GM in Sodium Chloride 0.9% 100 ML IVPB SCH ×4 (03:32→21:47)
[2018-07-10 06:02] LABS: BASO # 0.3 K/uL (0.0-0.2); BASO % 1.2 % (0.0-2.0); EOS # 0.3 K/uL (0.0-0.7); EOS % 1.2 % (0.0-4.0); HEMOGLOBIN 12.7 g/dL (12.0-18.0); MEAN CORPUSCULAR HGB CONC 32.7 g/dL (33.0-37.0); MEAN PLATELET VOLUME 8.9 fl (7.2-11.7); MONO # 2.6 K/uL (0.0-0.8); MONO % 11.4 % (0.0-10.0); NEUT # 17.5 K/uL (1.8-7.0); NEUT % 77.2 % (50.0-75.0); PLATELET COUNT 202 K/uL (130-400); RBC 3.84 Mil/uL (4.40-5.90); RED CELL DISTRIBUTION WIDTH 14.5 % (11.5-14.5); WHITE BLOOD COUNT 22.6 K/uL (4.8-10.8)
[2018-07-10 06:21] LABS: ALB/GLOB RATIO 0.5 (1.0-2.1); ALBUMIN 2.1 g/dL (3.5-5.0); ALT/SGPT 53 U/L (21-72); AST/SGOT 174 U/L (17-59); BLOOD UREA NITROGEN 5 mg/dl (9-20); CALCIUM 7.6 mg/dL (8.4-10.2); GFR NON-AFRICAN AMERICAN > 60
[2018-07-10 07:04] LABS: PROTHROMBIN TIME 22.2 Seconds (9.8-13.1)
--- NOTE | 2018-07-10 07:11 | CP.PCM.PN ---
<Norman Spencer - Last Filed: 07/10/18 11:56> Subjective - Date & Time of Evaluation Date of Evaluation: 07/10/18 Time of Evaluation: 09:00 - Subjective Subjective: Patient seen and examined at bedside this morning. NAD, no acute event overnight, 1:1 still active, patient is alert and awake but little drowsy. Denies any pain and able to to tell me his full name. Objective - Vital Signs/Intake and Output Vital Signs (last 24 hours): Temp Pulse Resp BP Pulse Ox 97.7 F 114 H 18 117/81 97 07/10/18 05:00 07/10/18 05:00 07/10/18 05:00 07/10/18 05:00 07/10/18 05:00 - Medications Medications: Current Medications Folic Acid (Folic Acid) 1 mg PO DAILY [facility] Last Admin: 07/09/18 08:41 Dose: 1 mg Heparin Sodium (Porcine) (Heparin) 5,000 units SC Q12 [facility]; Protocol Last Admin: 07/09/18 21:15 Dose: 5,000 units Piperacillin Sod/Tazobactam (Sod 3.375 gm/ Sodium Chloride) 100 mls @ 100 mls/hr IVPB Q6 [facility]; Protocol Last Admin: 07/10/18 03:32 Dose: 100 mls/hr Dextrose/Sodium Chloride (Dextrose 5%-0.45% Ns 500 Ml) 1,000 mls @ 50 mls/hr IV .Q20H [facility] Stop: 07/10/18 18:12 Last Admin: 07/09/18 22:03 Dose: 50 mls/hr Lactulose (Enulose) 10 gm PO DAILY [facility] Last Admin: 07/09/18 08:41 Dose: 10 gm Phytonadione (Vitamin K Inj) 10 mg SC DAILY [facility] Last Admin: 07/09/18 14:50 Dose: 10 mg Rifaximin (Xifaxan) 550 mg PO BID [facility]; Protocol Last Admin: 07/09/18 21:59 Dose: 550 mg Sodium Phosphate (Potassium/Sodium Phosphate) 250 mg PO DAILY [facility] Last Admin: 07/09/18 08:42 Dose: 250 mg Thiamine HCl (Vitamin B1 Tab) 100 mg PO TID [facility] Last Admin: 07/09/18 17:56 Dose: 100 mg Vancomycin HCl (Vancocin (Oral/Rectal Use)) 250 mg PO Q6 [facility]; Protocol Last Admin: 07/09/18 21:13 Dose: 250 mg - Labs Labs: 07/10/18 05:45 07/10/18 05:45 PT 22.2 Seconds (9.8-13.1) H 07/10/18 06:47 INR 2.0 07/10/18 06:47 APTT 33.1 Seconds (25.6-37.1) 07/02/18 22:30 - Constitutional Appears: No Acute Distress, Other (alert and awake but li) - Head Exam Head Exam: NORMAL INSPECTION - Eye Exam Eye Exam: Normal appearance - ENT Exam ENT Exam: Mucous Membranes Moist - Neck Exam Neck Exam: Normal Inspection - Respiratory Exam Respiratory Exam: Rales (Scattered b/l LL), NORMAL BREATHING PATTERN. absent: Accessory Muscle Use, Chest Wall Tenderness, Decreased Breath Sounds - Cardiovascular Exam Cardiovascular Exam: REGULAR RHYTHM, +S1, +S2 - GI/Abdominal Exam GI & Abdominal Exam: Distended, Firm, Normal Bowel Sounds. absent: Rebound Additional comments: Hepatomegaly - Extremities Exam Extremities Exam: Normal Capillary Refill, Normal Inspection - Back Exam Back Exam: NORMAL INSPECTION. absent: CVA tenderness (L), CVA tenderness (R) - Neurological Exam Neurological Exam: Alert, Awake Neuro motor strength exam: Left Upper Extremity: 3, Right Upper Extremity: 3, Left Lower Extremity: 3, Right Lower Extremity: 3 - Psychiatric Exam Psychiatric exam: Flat Affect - Skin Skin Exam: Normal Color Assessment and Plan - Assessment and Plan (Free Text) Assessment: A/P: 68 y/o male admitted for evaluation and treatment of AMS, Alcohol withdrawal, dehydration, elevated transaminases, ALLISON and leukocytosis. Alter Mental status/Metabolic Encephalopathy related to alcohol abuse/Withdrawal - Acute - Abd US showed fatty liver and generalized ascites - GI and ID recommendations appreciated, will follow further recommendations - C/w Multi-vitamins, Lactulose, and electrolytes replacement as needed - IR for abdominal parasenthesis/thoracentesis (Patient will get FFP before IR interventions) - C/w empiric Zosyn day#8 (Continue till 10 days), Vanco PO Day 1 ;empirically treat for C diff , Vanco IV stopped after day7 - C/w Rifaximin 550 BID with lactulose Abdominal Distention with hyperactive Bowel sounds/Non-tender/ R/o SBP - Acute - Abd US showed fatty liver and generalized ascites - KUB showed no free air - Abdominal U/S Extensive bowl gas. Mild hepatomegaly with diffuse fatty infiltration. Generalized ascitis noted - Follow up Chest/abdominal CT - GI and ID recommendations appreciated, will follow further recommendations - IR for abdominal parasenthesis to r/o SBP - C/w Rifaximin 550 BID with lactulose - C/w empiric Zosyn day#8, Vanco PO Day 1, Vanco IV stopped after day7 - F/u C.Diff, empirically treat for C diff Alcohol Withdrawal, Tachycardia possibly secondary to alcohol withdrawal - D/C librium - Ativan PRN - C/w Folic acid, Thiamine - C/w CIFL protocol Leukocytosis unknown etiology: Reactive vs infection - Afebrile - C/w empiric Zosyn day#8, Vanco PO Day 1, Vanco IV stopped after day7 - Urine Cx negative and blood Cx (No growth after 5 days) - Negative UA and CXR - Chest CT: B/L pleural effusions and compressive atlectasis. Moderate abdominal ascites noted on upper abdomen - ID consulted B/L pleural effusions - CT chest and abd u/s reviewed: B/L pleural effusions and moderate ascites. Hepatosteatosis. GB sludge - IR for abdominal parasenthesis/thoracentesis (Patient will get FFP before IR interventions) Electrolytes imbalance: Hypokalemia/ Hypophosphatemia/ Hypomagnesemia/ Hypocalcemia - Possibly due to chronic alcohol use, replete as needed Elevated AST, AST:ALT ratio >2:1 - Improving - Possible due to alcohol use DVT PPX - Heprin 5000 U SC Q12 EMERGENCY CONTACT# Jimmy Lenz Montelongo [phone] Full Code <Gissel Shen - Last Filed: 07/10/18 16:07> Objective - Vital Signs/Intake and Output Vital Signs (last 24 hours): Temp Pulse Resp BP Pulse Ox 97.2 F L 107 H 19 122/80 99 07/10/18 12:39 07/10/18 12:39 07/10/18 12:39 07/10/18 12:39 07/10/18 12:39 - Medications Medications: Current Medications Folic Acid (Folic Acid) 1 mg PO DAILY [facility] Last Admin: 07/10/18 13:25 Dose: 1 mg Piperacillin Sod/Tazobactam (Sod 3.375 gm/ Sodium Chloride) 100 mls @ 100 mls /hr IVPB Q6 [facility]; Protocol Last Admin: 07/10/18 09:26 Dose: 100 mls/hr Dextrose/Sodium Chloride (Dextrose 5%-0.45% Ns 500 Ml) 1,000 mls @ 50 mls/hr IV .Q20H [facility] Stop: 07/10/18 18:12 Last Admin: 07/09/18 22:03 Dose: 50 mls/hr Lactulose (Enulose) 10 gm PO DAILY [facility] Last Admin: 07/10/18 13:24 Dose: 10 gm Nadolol (Corgard) 20 mg PO DAILY [facility] Phytonadione (Vitamin K Inj) 10 mg SC DAILY [facility] Last Admin: 07/10/18 09:28 Dose: 10 mg Rifaximin (Xifaxan) 550 mg PO BID [facility]; Protocol Last Admin: 07/10/18 09:27 Dose: 550 mg Thiamine HCl (Vitamin B1 Tab) 100 mg PO TID [facility] Last Admin: 07/10/18 13:24 Dose: 100 mg Vancomycin HCl (Vancocin (Oral/Rectal Use)) 250 mg PO Q6 [facility]; Protocol Last Admin: 07/10/18 09:28 Dose: 250 mg - Labs Labs: 07/10/18 05:45 07/10/18 05:45 PT 22.2 Seconds (9.8-13.1) H 07/10/18 06:47 INR 2.0 07/10/18 06:47 APTT 33.1 Seconds (25.6-37.1) 07/02/18 22:30 Attending/Attestation - Attestation I have personally seen and examined this patient.: Yes I have fully participated in the care of the patient.: Yes I have reviewed all pertinent clinical information, including history, physical exam and plan: Yes Notes (Text): Problems: 1. AMS likely multifactorial sec to Hepatic Encephalopathy , Alcohol Withdrawal, Metabolic Encephalopathy sec to infection and Electrolyte Imbalance - cont IV Zosyn for poss SBP to complete 10 dayx tx - cont PO Vanco for C diff Colitis - replaceme electrolytes -cont Lactulose and Rifaximin 2. Cirrhosis with Ascites, Coagulopathy, Pleural Effusion - for Paracentesis today , discussed with Dr Peñaloza, FFP transfused -Plan for EGD in am as per GI - start Nadolol to help with ? varices and tachy 3. C Diff Colitis - Pt on PO vanco
[2018-07-10] MEDS ORDERED: Magnesium Sulfate 2 gm/50 ml 2 GM/50 ML BAG IVPB ONE (08:00)
[2018-07-10 08:33] LABS: HEPATITIS B SURFACE AG Negative (NEGATIVE)
[2018-07-10 08:38] LABS: HEPATITIS A IGM NEGATIVE (NEGATIVE); HEPATITIS B CORE AB NEGATIVE (NEGATIVE)
[2018-07-10 08:50] LABS: HEPATITIS C ANTIBODY NEGATIVE (NEGATIVE)
[2018-07-10] MEDS: Phytonadione 10 mg/ml Inj (Adult) SC SCH (09:28)
[2018-07-10] MEDS: Vancomycin 500 mg (Oral/Rectal USE) PO SCH ×4 (09:28→21:49)
[2018-07-10 11:49] LABS: BANDS 2 % (0-2); BASOPHIL 1 % (0-2); EOSINOPHIL 1 % (0-7); LYMPHOCYTE 8 % (20-50); METAMYELOCYTE 1 % (0-0); MONOCYTE 8 % (0-10); NEUTROPHIL 79 % (42-75); TOTAL CELLS COUNTED 100
[2018-07-10 11:50] LABS: HEPATITIS B SURFACE AG Negative (NEGATIVE)
[2018-07-10 11:50] LABS: PLATELET ESTIMATE NORMAL (NORMAL)
[2018-07-10 11:52] LABS: TOXIC GRANULATION PRESENT
[2018-07-10 11:56] LABS: HEPATITIS A IGM NEGATIVE (NEGATIVE); HEPATITIS B CORE AB NEGATIVE (NEGATIVE)
[2018-07-10 12:07] LABS: HEPATITIS C ANTIBODY NEGATIVE (NEGATIVE)
--- NOTE | 2018-07-10 12:24 | PCM.SURG1 ---
Surgeon's Initial Post Op Note - Surgeon's Notes Surgeon: Neo Peñaloza MD Supervisor Long Goods: NONE Type of Anesthesia: Local Pre-Operative Diagnosis: Ascites Operative Findings: US showed a small amount of ascites. Pt abdomen tympanic from gas. Post-Operative Diagnosis: Ascites Operation Performed: US guided paracentesis Specimen/Specimens Removed: 2 liters of straw colored fluid Estimated Blood Loss: EBL {In ML}: 0 Blood Products Given: N/A Drains Used: No Drains Post-Op Condition: Fair Date of Surgery/Procedure: 07/10/18 Time of Surgery/Procedure: 12:20
--- NOTE | 2018-07-10 12:31 | CP.PCM.PN ---
<Gayatri Spencer - Last Filed: 07/10/18 12:32> Subjective - Date & Time of Evaluation Date of Evaluation: 07/10/18 Time of Evaluation: 12:00 - Subjective Subjective: PGY5 GI Follow-up Pt seen and examined bedside Denies any abd pain Awake and oriented x2 only had x2 BM since yesterday ROS: 12 point ROS conducted, neg other than above Objective - Vital Signs/Intake and Output Vital Signs (last 24 hours): Temp Pulse Resp BP Pulse Ox 97.5 F L 109 H 18 116/77 99 07/10/18 12:18 07/10/18 12:18 07/10/18 12:18 07/10/18 12:18 07/10/18 12:18 - Medications Medications: Current Medications Folic Acid (Folic Acid) 1 mg PO DAILY [facility] Last Admin: 07/09/18 08:41 Dose: 1 mg Heparin Sodium (Porcine) (Heparin) 5,000 units SC Q12 [facility]; Protocol Last Admin: 07/09/18 21:15 Dose: 5,000 units Piperacillin Sod/Tazobactam (Sod 3.375 gm/ Sodium Chloride) 100 mls @ 100 mls/hr IVPB Q6 [facility]; Protocol Last Admin: 07/10/18 09:26 Dose: 100 mls/hr Dextrose/Sodium Chloride (Dextrose 5%-0.45% Ns 500 Ml) 1,000 mls @ 50 mls/hr IV .Q20H [facility] Stop: 07/10/18 18:12 Last Admin: 07/09/18 22:03 Dose: 50 mls/hr Lactulose (Enulose) 10 gm PO DAILY [facility] Last Admin: 07/09/18 08:41 Dose: 10 gm Phytonadione (Vitamin K Inj) 10 mg SC DAILY [facility] Last Admin: 07/10/18 09:28 Dose: 10 mg Rifaximin (Xifaxan) 550 mg PO BID [facility]; Protocol Last Admin: 07/10/18 09:27 Dose: 550 mg Sodium Phosphate (Potassium/Sodium Phosphate) 250 mg PO DAILY [facility] Last Admin: 07/10/18 09:40 Dose: 250 mg Thiamine HCl (Vitamin B1 Tab) 100 mg PO TID [facility] Last Admin: 07/10/18 09:27 Dose: 100 mg Vancomycin HCl (Vancocin (Oral/Rectal Use)) 250 mg PO Q6 [facility]; Protocol Last Admin: 10/08/18 09:28 Dose: 250 mg - Labs Labs: 07/10/18 05:45 07/10/18 05:45 PT 22.2 Seconds (9.8-13.1) H 07/10/18 06:47 INR 2.0 07/10/18 06:47 APTT 33.1 Seconds (25.6-37.1) 07/02/18 22:30 - Constitutional Appears: Well, No Acute Distress, Confused - Head Exam Head Exam: ATRAUMATIC, NORMOCEPHALIC - Eye Exam Eye Exam: Scleral icterus - ENT Exam ENT Exam: Mucous Membranes Moist, Normal Exam - Neck Exam Neck Exam: Normal Inspection - Respiratory Exam Respiratory Exam: Clear to Ausculation Bilateral, NORMAL BREATHING PATTERN. absent: Rales, Rhonchi, Wheezes, Respiratory Distress - Cardiovascular Exam Cardiovascular Exam: REGULAR RHYTHM, +S1, +S2 - GI/Abdominal Exam GI & Abdominal Exam: Distended, Normal Bowel Sounds, Organomegaly. absent: Guarding, Rigid, Tenderness, Mass, Rebound - Extremities Exam Extremities Exam: absent: Joint Swelling, Pedal Edema - Neurological Exam Neurological Exam: Alert, Altered, Awake - Psychiatric Exam Psychiatric exam: Normal Affect, Normal Mood Assessment and Plan - Assessment and Plan (Free Text) Assessment: #Decompensated Alcoholic Cirrhosis - MELD-Na 22 07/10/2018; s/p abd paracentesis 2L #Acute Alcoholic hepatitis - #alcohol abuse #Possible SBP/C. diff PLAN: -Would not recommend steroids at this time. -2L aspirated, no indication for albumin at this time, waiting for fluid analysis -Needs fluid culture, cell count, gram stain, albumin and TP -CT chest and abd u/s reviewed: B/L pleural effusions and moderate ascites. Hepatosteatosis. GB sludge. -Continue zosyn, PO vanco for now as per ID. -Continue lactulose and xifaxan for encephelopathy. Goal 2 BMs per day. will increase to lactulose x2 daily. titrate to two BM daily -spoke with on the phone, received consent for EGD tomorrow to rule out esophageal varicies -NPO after midnight -will need repeat labs in the morning -if INR elevated, will give FFP in the AM D/W Dr. Gomez Consent for EGD and anesthesia in chart <Carley Gomez - Last Filed: 07/10/18 13:52> Objective - Vital Signs/Intake and Output Vital Signs (last 24 hours): Temp Pulse Resp BP Pulse Ox 97.2 F L 107 H 19 122/80 99 07/10/18 12:39 07/10/18 12:39 07/10/18 12:39 07/10/18 12:39 07/10/18 12:39 - Medications Medications: Current Medications Folic Acid (Folic Acid) 1 mg PO DAILY [facility] Last Admin: 07/10/18 13:25 Dose: 1 mg Heparin Sodium (Porcine) (Heparin) 5,000 units SC Q12 [facility]; Protocol Last Admin: 07/09/18 21:15 Dose: 5,000 units Piperacillin Sod/Tazobactam (Sod 3.375 gm/ Sodium Chloride) 100 mls @ 100 mls/hr IVPB Q6 [facility]; Protocol Last Admin: 07/10/18 09:26 Dose: 100 mls/hr Dextrose/Sodium Chloride (Dextrose 5%-0.45% Ns 500 Ml) 1,000 mls @ 50 mls/hr IV .Q20H [facility] Stop: 07/10/18 18:12 Last Admin: 07/09/18 22:03 Dose: 50 mls/hr Lactulose (Enulose) 10 gm PO DAILY [facility] Last Admin: 07/10/18 13:24 Dose: 10 gm Phytonadione (Vitamin K Inj) 10 mg SC DAILY [facility] Last Admin: 07/10/18 09:28 Dose: 10 mg Rifaximin (Xifaxan) 550 mg PO BID [facility]; Protocol Last Admin: 07/10/18 09:27 Dose: 550 mg Sodium Phosphate (Potassium/Sodium Phosphate) 250 mg PO DAILY [facility] Last Admin: 07/10/18 09:40 Dose: 250 mg Thiamine HCl (Vitamin B1 Tab) 100 mg PO TID [facility] Last Admin: 07/10/18 13:24 Dose: 100 mg Vancomycin HCl (Vancocin (Oral/Rectal Use)) 250 mg PO Q6 [facility]; Protocol Last Admin: 07/10/18 09:28 Dose: 250 mg - Labs Labs: 07/10/18 05:45 07/10/18 05:45 PT 22.2 Seconds (9.8-13.1) H 07/10/18 06:47 INR 2.0 07/10/18 06:47 APTT 33.1 Seconds (25.6-37.1) 07/02/18 22:30 Attending/Attestation - Attestation I have fully participated in the care of the patient.: Yes I have reviewed all pertinent clinical information, including history, physical exam and plan: Yes Notes (Text): 07/10/18 13:50 Patient is a 68 yr old M with alcohol abuse and dependance admitted with alcoholic hepatitis in setting of alcoholic cirrhosis with active drinking. Hence not a transplant candidate even though MELD na 22. DF calculated as 39 but not a candidate for steroid due to active drinking and suspicion of SBP. Continue zosyn. s/p 2 lts of ascitic tap. Give lactulose daily and titrate to 2 Bm/day for HE. 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 Can be evaluated for TIPS. F/U ascitic fluid for cytology and culture and albumin. NPO past midnight for EGD in am. Aspiration precautions. Had long discussion with family regarding cirrhosis, treatment options and complications. Avoid alcohol.
[2018-07-10 12:58] LABS: BODY FLUID TYPE PERITONEAL/ASCITES
[2018-07-10] MEDS: Lactulose 10 gm/15 ml Syrup PO SCH (13:24)
[2018-07-10 13:28] LABS: GLUCOSE,BODY FLUID 93 mg/dL (NONE ESTABLISHED); TOTAL PROTEIN,BODY FLUID < 2.0 g/dL (NONE ESTABLISHED)
[2018-07-10 14:22] LABS: BF GROSS APPEARANCE CLEAR (CLEAR); BODY FLUID MONO/MACROPHAGE 10 % (0-0)
[2018-07-11] MEDS: Vancomycin 500 mg (Oral/Rectal USE) PO SCH ×4 (04:42→21:10)
[2018-07-11] MEDS: Piperacillin/Tazobact 3.375 GM in Sodium Chloride 0.9% 100 ML IVPB SCH ×4 (04:43→21:08)
[2018-07-11 05:27] LABS: BASO # 0.3 K/uL (0.0-0.2); BASO % 1.7 % (0.0-2.0); EOS # 0.4 K/uL (0.0-0.7); EOS % 1.7 % (0.0-4.0); HEMOGLOBIN 12.8 g/dL (12.0-18.0); LYMPH # 1.9 K/uL (1.0-4.3); LYMPH % 9.7 % (20.0-40.0); MEAN CELL VOLUME 100.2 fl (80.0-94.0); MEAN CORPUSCULAR HEMOGLOBIN 33.1 pg (27.0-31.0); MEAN CORPUSCULAR HGB CONC 33.1 g/dL (33.0-37.0); MEAN PLATELET VOLUME 9.1 fl (7.2-11.7); MONO # 1.7 K/uL (0.0-0.8); MONO % 8.6 % (0.0-10.0); NEUT # 15.8 K/uL (1.8-7.0); NEUT % 78.3 % (50.0-75.0); RBC 3.88 Mil/uL (4.40-5.90); RED CELL DISTRIBUTION WIDTH 14.4 % (11.5-14.5); WHITE BLOOD COUNT 20.1 K/uL (4.8-10.8)
[2018-07-11 05:28] LABS: INR 1.8; PROTHROMBIN TIME 19.6 Seconds (9.8-13.1)
[2018-07-11 05:38] LABS: ALB/GLOB RATIO 0.6 (1.0-2.1); ALBUMIN 2.2 g/dL (3.5-5.0); ALT/SGPT 54 U/L (21-72); AST/SGOT 157 U/L (17-59); BLOOD UREA NITROGEN 6 mg/dl (9-20); CALCIUM 7.8 mg/dL (8.4-10.2); GFR NON-AFRICAN AMERICAN > 60
--- NOTE | 2018-07-11 07:04 | CP.PCM.PN ---
Addendum entered and electronically signed by Peyton Landrum MD 07/11/18 17:16: Patient seen and examined bedside . All chart and clinical data reviewed . Case discussed with resident . Agree with assessment and plan. 68 y/o male with history ETOH abuse admitted for AMS / metabolic, hepatic encephalopathy / ETOH withdrawals / ALLISON / electrolyte abnormality and C.diff Ag positive At present in telemetry , tachycardic ,alert ,awake , oriented to place , person and time but drowsy and slow when answering questions, with episodes of confusion . s/p abdominal parasentheisis with removal 2 L ascitic fluid Continue zosyn IV empirically and Vanco PO for C.diff Ag positive > ID on consult continue Rifaximine and lactulose EGD cancelled today due to his metabolic / hepatic encephalopathy.Discussed with GI . No need for emergency EGD On 1 :1 for safety due to periods of confusion and agitation Continue replacing electrolytes , K, Ph and Mg Original Note: Subjective - Date & Time of Evaluation Date of Evaluation: 07/11/18 Time of Evaluation: 08:00 - Subjective Subjective: Patient seen and examined at bedside this morning. NAD, no acute event overnight, 1:1 still active, patient is alert and awake but little drowsy. Denies any pain and able to to tell me his full name. Alert, drowsy, oriented to the person and place Objective - Vital Signs/Intake and Output Vital Signs (last 24 hours): Temp Pulse Resp BP Pulse Ox 97.7 F 105 H 18 122/81 92 L 07/11/18 05:00 07/11/18 05:00 07/11/18 05:00 07/11/18 05:00 07/11/18 05:00 - Medications Medications: Current Medications Folic Acid (Folic Acid) 1 mg PO DAILY [facility] Last Admin: 07/10/18 13:25 Dose: 1 mg Piperacillin Sod/Tazobactam (Sod 3.375 gm/ Sodium Chloride) 100 mls @ 100 mls/hr IVPB Q6 [facility]; Protocol Last Admin: 07/11/18 04:43 Dose: 100 mls/hr Lactulose (Enulose) 10 gm PO DAILY [facility] Last Admin: 07/10/18 13:24 Dose: 10 gm Nadolol (Corgard) 20 mg PO DAILY [facility] Last Admin: 07/10/18 16:11 Dose: 20 mg Phytonadione (Vitamin K Inj) 10 mg SC DAILY [facility] Last Admin: 07/10/18 09:28 Dose: 10 mg Rifaximin (Xifaxan) 550 mg PO BID [facility]; Protocol Last Admin: 07/10/18 21:47 Dose: 550 mg Thiamine HCl (Vitamin B1 Tab) 100 mg PO TID [facility] Last Admin: 07/10/18 16:03 Dose: 100 mg Vancomycin HCl (Vancocin (Oral/Rectal Use)) 250 mg PO Q6 [facility]; Protocol Last Admin: 07/11/18 04:42 Dose: 250 mg - Labs Labs: 07/11/18 05:00 07/11/18 05:00 PT 19.6 Seconds (9.8-13.1) H 07/11/18 05:00 INR 1.8 07/11/18 05:00 APTT 33.1 Seconds (25.6-37.1) 07/02/18 22:30 - Constitutional Appears: Other (alert and awake but little drowsy ) - Head Exam Head Exam: NORMAL INSPECTION - Eye Exam Eye Exam: Normal appearance - ENT Exam ENT Exam: Mucous Membranes Moist - Respiratory Exam Respiratory Exam: Clear to Ausculation Bilateral, NORMAL BREATHING PATTERN. absent: Accessory Muscle Use, Chest Wall Tenderness - Cardiovascular Exam Cardiovascular Exam: REGULAR RHYTHM, +S1, +S2 - GI/Abdominal Exam GI & Abdominal Exam: Distended, Firm, Normal Bowel Sounds. absent: Tenderness, Rebound - Extremities Exam Extremities Exam: Normal Capillary Refill, Normal Inspection - Neurological Exam Neurological Exam: Alert, Awake (oriented to person and place ) Neuro motor strength exam: Left Upper Extremity: 3, Right Upper Extremity: 3, Left Lower Extremity: 3, Right Lower Extremity: 3 - Psychiatric Exam Psychiatric exam: Flat Affect - Skin Skin Exam: Normal Color Assessment and Plan - Assessment and Plan (Free Text) Assessment: A/P: 68 y/o male admitted for evaluation and treatment of AMS, Alcohol withdrawal, dehydration, elevated transaminases, ALLISON and leukocytosis. Alter Mental status/Metabolic Encephalopathy related to alcohol abuse/Withdrawal - Acute - GI and ID recommendations appreciated, will follow further recommendations - C/w Multi-vitamins, Lactulose, and electrolytes replacement as needed - S/p abdominal parasenthesis, 2L fluids was taken out, No SBP picture - C/w empiric Zosyn day#8 (Continue till 10 days), Vanco PO Day 1 ;empirically treat for C diff , Vanco IV stopped after day7 - C/w Rifaximin 550 BID with lactulose - Possible EGD today (Consider FFP prior to the procedure), will follow GI recommendations Abdominal Distention/Non-tender/Decompensated Alcoholic Cirrhosis/Acute Alcoholic hepatitis - Acute - GI and ID recommendations appreciated, will follow further recommendations - S/p abdominal parasenthesis, 2L fluids was taken out, No SBP picture - C/w Rifaximin 550 BID with lactulose - C/w empiric Zosyn day#9, Vanco PO Day 2, Vanco IV stopped after day7 on 07/09/18 C.Diff Antigen positive - Vanco 250mg PO Day #2 Alcohol Withdrawal, Tachycardia possibly secondary to alcohol withdrawal - Ativan PRN - C/w Folic acid, Thiamine - C/w Rifaximin 550 BID with lactulose Leukocytosis unknown etiology: Reactive vs infection - Afebrile - C/w empiric Zosyn day#9, Vanco PO Day 2 for c.diff, Vanco IV stopped after day7 on 07/09/18 - Will follow ID recommendations B/L pleural effusions - CT chest and abd u/s reviewed: B/L pleural effusions and moderate ascites. Hepatosteatosis. GB sludge - Consider IR for thoracentesis Electrolytes imbalance: Hypokalemia/ Hypophosphatemia/ Hypomagnesemia/ Hypocalcemia - Possibly due to chronic alcohol use, replete as needed Elevated AST, AST:ALT ratio >2:1 - Improving - Possible due to alcohol use DVT PPX - Heprin 5000 U SC Q12 (held for GI interventions)
--- NOTE | 2018-07-11 10:59 | CP.PCM.PN ---
Subjective - Date & Time of Evaluation Date of Evaluation: 07/11/18 Time of Evaluation: 08:00 - Subjective Subjective: Patient seen this am at bedside. Confused, sleepy but arousable. No fever. s/p 2 lts paracentesis with no SBP Objective - Vital Signs/Intake and Output Vital Signs (last 24 hours): Temp Pulse Resp BP Pulse Ox 98.0 F 93 H 20 102/66 92 L 07/11/18 08:24 07/11/18 08:24 07/11/18 08:24 07/11/18 08:24 07/11/18 08:24 - Medications Medications: Current Medications Folic Acid (Folic Acid) 1 mg PO DAILY [facility] Last Admin: 07/10/18 13:25 Dose: 1 mg Piperacillin Sod/Tazobactam (Sod 3.375 gm/ Sodium Chloride) 100 mls @ 100 mls/hr IVPB Q6 [facility]; Protocol Last Admin: 07/11/18 04:43 Dose: 100 mls/hr Lactulose (Enulose) 10 gm PO BID [facility] Nadolol (Corgard) 20 mg PO DAILY [facility] Last Admin: 07/10/18 16:11 Dose: 20 mg Phytonadione (Vitamin K Inj) 10 mg SC DAILY [facility] Last Admin: 07/10/18 09:28 Dose: 10 mg Rifaximin (Xifaxan) 550 mg PO BID [facility]; Protocol Last Admin: 07/10/18 21:47 Dose: 550 mg Thiamine HCl (Vitamin B1 Tab) 100 mg PO TID [facility] Last Admin: 07/10/18 16:03 Dose: 100 mg Vancomycin HCl (Vancocin (Oral/Rectal Use)) 250 mg PO Q6 [facility]; Protocol Last Admin: 07/11/18 04:42 Dose: 250 mg - Labs Labs: 07/11/18 05:00 07/11/18 05:00 PT 19.6 Seconds (9.8-13.1) H 07/11/18 05:00 INR 1.8 07/11/18 05:00 APTT 33.1 Seconds (25.6-37.1) 07/02/18 22:30 - Constitutional Appears: Well - Head Exam Head Exam: ATRAUMATIC, NORMAL INSPECTION, NORMOCEPHALIC - Eye Exam Eye Exam: EOMI, Normal appearance, PERRL Additional comments: scleral icterus - ENT Exam ENT Exam: Mucous Membranes Moist - Respiratory Exam Respiratory Exam: Decreased Breath Sounds - Cardiovascular Exam Cardiovascular Exam: REGULAR RHYTHM, RRR, +S1, +S2 - GI/Abdominal Exam GI & Abdominal Exam: Distended Additional comments: No rebound. No guarding. Distended. Tense - Neurological Exam Neurological Exam: Altered - Skin Skin Exam: Dry, Warm Assessment and Plan - Assessment and Plan (Free Text) Assessment: Patient is a 68 yr old M with alcohol abuse and dependance admitted with alcoholic hepatitis in setting of alcoholic cirrhosis with active drinking. Hence not a transplant candidate even though MELD na 22. DF calculated as 39 but not a candidate for steroid due to active drinking. Continue zosyn and vancomycin. s/p 2 lts of ascitic tap. Give lactulose daily and titrate to 2 Bm/day for HE. 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 Can be evaluated for TIPS. Was scheduled for elective EGd today for variceal evaluation but was cancelled due to high risk of aspiration during anesthesia and risk of intubation. In setting of non urgent EGd, this was deemed to be cancelled till patient is fully awake and able to protect secretions. Discussed with the primary team. Aspiration precautions. Had long discussion with family regarding cirrhosis, treatment options and complications. Avoid alcohol. Plan: -Would not recommend steroids at this time. -2L aspirated, no indication for albumin at this time -CT chest and abd u/s reviewed: B/L pleural effusions and moderate ascites. Hepatosteatosis. GB sludge. -Continue zosyn, PO vanco for now as per ID. -Continue lactulose and xifaxan for encephelopathy. Goal 2 BMs per day. will increase to lactulose x2 daily. titrate to two BM daily - supportive care
[2018-07-11] MEDS: Lactulose 10 gm/15 ml Syrup PO SCH ×2 (11:05→17:18)
[2018-07-11] MEDS: Phytonadione 10 mg/ml Inj (Adult) SC SCH (11:12)
[2018-07-12] MEDS: Piperacillin/Tazobact 3.375 GM in Sodium Chloride 0.9% 100 ML IVPB SCH ×4 (03:24→22:14)
[2018-07-12 05:28] LABS: BASO # 0.3 K/uL (0.0-0.2); BASO % 1.5 % (0.0-2.0); EOS # 0.2 K/uL (0.0-0.7); EOS % 0.8 % (0.0-4.0); HEMOGLOBIN 13.2 g/dL (12.0-18.0); LYMPH # 2.1 K/uL (1.0-4.3); MEAN CELL VOLUME 100.2 fl (80.0-94.0); MEAN CORPUSCULAR HEMOGLOBIN 33.1 pg (27.0-31.0); MEAN CORPUSCULAR HGB CONC 33.1 g/dL (33.0-37.0); MEAN PLATELET VOLUME 8.8 fl (7.2-11.7); MONO # 1.4 K/uL (0.0-0.8); MONO % 6.6 % (0.0-10.0); NEUT # 16.8 K/uL (1.8-7.0); NEUT % 81.1 % (50.0-75.0); RBC 3.97 Mil/uL (4.40-5.90); RED CELL DISTRIBUTION WIDTH 14.4 % (11.5-14.5); WHITE BLOOD COUNT 20.7 K/uL (4.8-10.8)
[2018-07-12 06:05] LABS: ALB/GLOB RATIO 0.5 (1.0-2.1); ALBUMIN 2.3 g/dL (3.5-5.0); ALT/SGPT 42 U/L (21-72); AST/SGOT 149 U/L (17-59); BLOOD UREA NITROGEN 9 mg/dl (9-20); CALCIUM 8.1 mg/dL (8.4-10.2); GFR NON-AFRICAN AMERICAN > 60
[2018-07-12] MEDS: Vancomycin 500 mg (Oral/Rectal USE) PO SCH ×4 (06:07→22:19)
[2018-07-12] MEDS: Lactulose 10 gm/15 ml Syrup PO SCH ×2 (09:09→16:03)
--- NOTE | 2018-07-12 09:48 | CP.PCM.PN ---
Addendum entered and electronically signed by Peyton Landrum MD 07/12/18 15:55: Patient seen and examined bedside. All chart and clinical data reviewed .Case discussed with resident .Agree with assessment and plan. 68 y/o male with PMH ETOH abuse , liver cirrhosis admitted with AMS secondary to metabolic / hepatic encephalopathy, diarrhea and electrolyte abnormalities, as cites ,ETOH withdrawals and c.diff Ag positive At present mental status showing some improvement, awake, alert and oriented to place , time and person .Knows he is in the hospital and why . Abdomen distended due to ascitic fluid but not tender to palpation,sclera jaundiced Will d/c 1:1 had 3 BM today . continue lactulose and Rifaximin Electrolytes better today Discussed with GI . Patient has guarded / poor prognosis due to worsening cirrhosis and encephalopathy Continue current management Follow up CT abdomen Start PT Continue zosyn IV and Vanco PO Will need to be evaluated for TIPS as out patient Original Note: Subjective - Date & Time of Evaluation Date of Evaluation: 07/12/18 Time of Evaluation: 09:00 - Subjective Subjective: patient seen and examined this morning. More alert and awake than yesterday, NAD, No acute event overnight. Patient was able to give me full name and home address. 1:1 still active, denies any pain. Objective - Vital Signs/Intake and Output Vital Signs (last 24 hours): Temp Pulse Resp BP Pulse Ox 97.8 F 100 H 20 105/73 95 07/12/18 09:38 07/12/18 09:38 07/12/18 09:38 07/12/18 09:38 07/12/18 09:38 - Medications Medications: Current Medications Folic Acid (Folic Acid) 1 mg PO DAILY [facility] Last Admin: 07/12/18 09:09 Dose: 1 mg Heparin Sodium (Porcine) (Heparin) 5,000 units SC Q12 [facility]; Protocol Last Admin: 07/12/18 09:11 Dose: 5,000 units Piperacillin Sod/Tazobactam (Sod 3.375 gm/ Sodium Chloride) 100 mls @ 100 mls/hr IVPB Q6 [facility]; Protocol Last Admin: 07/12/18 09:09 Dose: 100 mls/hr Lactulose (Enulose) 10 gm PO BID [facility] Last Admin: 07/12/18 09:09 Dose: 10 gm Nadolol (Corgard) 20 mg PO DAILY [facility] Last Admin: 07/12/18 09:09 Dose: 20 mg Rifaximin (Xifaxan) 550 mg PO BID [facility]; Protocol Last Admin: 07/12/18 09:09 Dose: 550 mg Thiamine HCl (Vitamin B1 Tab) 100 mg PO TID [facility] Last Admin: 07/12/18 09:09 Dose: 100 mg Vancomycin HCl (Vancocin (Oral/Rectal Use)) 250 mg PO Q6 [facility]; Protocol Last Admin: 07/12/18 09:09 Dose: 250 mg - Labs Labs: 07/12/18 05:16 07/12/18 05:16 PT 19.6 Seconds (9.8-13.1) H 07/11/18 05:00 INR 1.8 07/11/18 05:00 APTT 33.1 Seconds (25.6-37.1) 07/02/18 22:30 - Constitutional Appears: No Acute Distress - Head Exam Head Exam: NORMAL INSPECTION - Eye Exam Eye Exam: PERRL, Scleral icterus - ENT Exam ENT Exam: Mucous Membranes Moist - Neck Exam Neck Exam: Normal Inspection - Respiratory Exam Respiratory Exam: Clear to Ausculation Bilateral - Cardiovascular Exam Cardiovascular Exam: REGULAR RHYTHM, +S1, +S2 - GI/Abdominal Exam GI & Abdominal Exam: Distended, Firm, Normal Bowel Sounds. absent: Tenderness, Rebound - Extremities Exam Extremities Exam: Normal Capillary Refill - Back Exam Back Exam: NORMAL INSPECTION. absent: CVA tenderness (L), CVA tenderness (R) - Neurological Exam Neurological Exam: Alert, Awake Neuro motor strength exam: Left Upper Extremity: 3, Right Upper Extremity: 3, Left Lower Extremity: 3, Right Lower Extremity: 3 - Psychiatric Exam Psychiatric exam: Normal Affect - Skin Skin Exam: Normal Color Assessment and Plan - Assessment and Plan (Free Text) Assessment: A/P: 68 y/o male admitted for evaluation and treatment of AMS, Encephalopathy, Alcohol withdrawal, dehydration, Decompensated Alcoholic Cirrhosis, elevated transaminases, ALLISON and leukocytosis. Alter Mental status/Metabolic Encephalopathy related to alcohol abuse/Withdrawal - Acute - GI and ID recommendations appreciated, will follow further recommendations - C/w Multi-vitamins, Lactulose, and electrolytes replacement as needed - C/w empiric Zosyn day#9 (Continue till 10 days), Vanco PO Day 3 for C diff , Vanco IV stopped after day7 - C/w Rifaximin 550 BID with lactulose - Consider EGD, will follow GI recommendations Abdominal Distention/Non-tender/Decompensated Alcoholic Cirrhosis/Acute Alcoholic hepatitis - Acute - GI and ID recommendations appreciated, will follow further recommendations - S/p abdominal parasenthesis 07/10, 2L fluids was taken out, No SBP picture - C/w Rifaximin 550 BID with lactulose - C/w empiric Zosyn day#9 (Continue till 10 days), Vanco PO Day 2 for C diff , Vanco IV stopped after day7 C.Diff Antigen positive - Vanco 250mg PO Day #3 Alcohol Withdrawal, Tachycardia possibly secondary to alcohol withdrawal - Ativan PRN - C/w Folic acid, Thiamine - C/w Rifaximin 550 BID with lactulose Leukocytosis unknown etiology: Reactive vs infection - Afebrile - Will follow ID recommendations - C/w Abx B/L pleural effusions - CT chest and abd u/s reviewed: B/L pleural effusions and moderate ascites. Hepatosteatosis. GB sludge - Consider IR for thoracentesis Electrolytes imbalance: Hypokalemia/ Hypophosphatemia/ Hypomagnesemia/ Hypocalcemia - Possibly due to chronic alcohol use, replete as needed Elevated AST, AST:ALT ratio >2:1 - Improving - Possible due to alcohol use DVT PPX - Heprin 5000 U SC Q12
--- NOTE | 2018-07-12 10:48 | CP.PCM.CON ---
History of Present Illness - History of Present Illness History of Present Illness: GI Fellow PGY5 Progress Note Pt seen and evaluated at bedside, pt alert and awake but still confused. Per 1:1 sitter, pt confused today and not as sleepy as yesterday. Pt had 3BM since 7am today, and 3BM overnight. Pt eating a little. ROS: A 12pt ROS was negative except as above. Past Patient History - Past Medical History & Family History Past Medical History?: Yes - Past Social History Smoking Status: Former Smoker - CARDIAC Hx Cardiac Disorders: No - PULMONARY Hx Respiratory Disorders: No - NEUROLOGICAL Hx Neurological Disorder: No - HEENT Hx HEENT Problems: No - RENAL Hx Chronic Kidney Disease: No - ENDOCRINE/METABOLIC Hx Endocrine Disorders: No - HEMATOLOGICAL/ONCOLOGICAL Hx Blood Disorders: No - INTEGUMENTARY Hx Dermatological Problems: No - MUSCULOSKELETAL/RHEUMATOLOGICAL Hx Falls: Yes - GASTROINTESTINAL Hx Gastrointestinal Disorders: No - GENITOURINARY/GYNECOLOGICAL Hx Genitourinary Disorders: No - PSYCHIATRIC Hx Substance Use: No - SURGICAL HISTORY Hx Herniorrhaphy: Yes Hx Orthopedic Surgery: Yes (Right shoulder surgery) - ANESTHESIA Hx Anesthesia: Yes Hx Anesthesia Reactions: No Hx Malignant Hyperthermia: No Meds Allergies/Adverse Reactions: Allergies Allergy/AdvReac Type Severity Reaction Status Date / Time No Known Allergies Allergy Verified 07/02/18 21:23 - Medications Medications: Current Medications Folic Acid (Folic Acid) 1 mg PO DAILY [facility] Last Admin: 07/12/18 09:09 Dose: 1 mg Heparin Sodium (Porcine) (Heparin) 5,000 units SC Q12 [facility]; Protocol Last Admin: 07/12/18 09:11 Dose: 5,000 units Piperacillin Sod/Tazobactam (Sod 3.375 gm/ Sodium Chloride) 100 mls @ 100 mls /hr IVPB Q6 [facility]; Protocol Last Admin: 07/12/18 09:09 Dose: 100 mls/hr Lactulose (Enulose) 10 gm PO BID [facility] Last Admin: 07/12/18 09:09 Dose: 10 gm Nadolol (Corgard) 20 mg PO DAILY [facility] Last Admin: 07/12/18 09:09 Dose: 20 mg Rifaximin (Xifaxan) 550 mg PO BID [facility]; Protocol Last Admin: 07/12/18 09:09 Dose: 550 mg Thiamine HCl (Vitamin B1 Tab) 100 mg PO TID [facility] Last Admin: 07/12/18 09:09 Dose: 100 mg Vancomycin HCl (Vancocin (Oral/Rectal Use)) 250 mg PO Q6 [facility]; Protocol Last Admin: 07/12/18 09:09 Dose: 250 mg Physical Exam - Constitutional Appears: No Acute Distress, Confused, Cachectic, Chronically Ill - Head Exam Head Exam: ATRAUMATIC, NORMAL INSPECTION, NORMOCEPHALIC - Eye Exam Eye Exam: EOMI, PERRL, Scleral icterus - ENT Exam ENT Exam: Mucous Membranes Dry - Neck Exam Neck exam: Negative for: Lymphadenopathy, Tenderness - Respiratory Exam Respiratory Exam: Decreased Breath Sounds, NORMAL BREATHING PATTERN - Cardiovascular Exam Cardiovascular Exam: Tachycardia, +S1, +S2 - GI/Abdominal Exam GI & Abdominal Exam: Distended, Firm, Normal Bowel Sounds, Organomegaly. absent: Tenderness - Extremities Exam Extremities exam: Positive for: normal inspection. Negative for: calf tenderness, full ROM, pedal edema - Neurological Exam Neurological exam: Alert - Psychiatric Exam Psychiatric exam: Flat Affect - Skin Skin Exam: Dry, Intact, Warm Additional comments: Jaundiced Results - Vital Signs Recent Vital Signs: Last Vital Signs Temp 97.8 F 07/12/18 09:38 Pulse 100 H 07/12/18 09:38 Resp 20 07/12/18 09:38 BP 105/73 07/12/18 09:38 Pulse Ox 95 07/12/18 09:38 - Labs Result Diagrams: 07/12/18 05:16 07/12/18 05:16 Labs: Laboratory Results - last 24 hr 07/09/18 07/09/18 07/12/18 08:24 Unknown 05:16 WBC 20.7 H RBC 3.97 L Hgb 13.2 Hct 39.8 MCV 100.2 H MCH 33.1 H MCHC 33.1 RDW 14.4 Plt Count 208 MPV 8.8 Neut % (Auto) 81.1 H Lymph % (Auto) 10.0 L Simpson % (Auto) 6.6 Eos % (Auto) 0.8 Baso % (Auto) 1.5 Neut # (Auto) 16.8 H Lymph # (Auto) 2.1 Simpson # (Auto) 1.4 H Eos # (Auto) 0.2 Baso # (Auto) 0.3 H Sodium Potassium Chloride Carbon Dioxide Anion Gap BUN Creatinine Est GFR ( Amer) Est GFR (Non-Af Amer) Random Glucose Calcium Phosphorus Magnesium Total Bilirubin AST ALT Alkaline Phosphatase Total Protein Albumin Globulin Albumin/Globulin Ratio C. difficile Tox B Gene Not detected C. difficile Ag & Toxin Positive antigen 07/12/18 05:16 WBC RBC Hgb Hct MCV MCH MCHC RDW Plt Count MPV Neut % (Auto) Lymph % (Auto) Simpson % (Auto) Eos % (Auto) Baso % (Auto) Neut # (Auto) Lymph # (Auto) Simpson # (Auto) Eos # (Auto) Baso # (Auto) Sodium 137 Potassium 3.8 Chloride 108 H Carbon Dioxide 22 Anion Gap 11 BUN 9 Creatinine 0.7 L Est GFR ( Amer) > 60 Est GFR (Non-Af Amer) > 60 Random Glucose 81 Calcium 8.1 L Phosphorus 3.0 Magnesium 1.7 Total Bilirubin 7.2 H AST 149 H ALT 42 Alkaline Phosphatase 272 H Total Protein 6.6 Albumin 2.3 L Globulin 4.3 H Albumin/Globulin Ratio 0.5 L C. difficile Tox B Gene C. difficile Ag & Toxin Assessment & Plan - Assessment and Plan (Free Text) Assessment: This is a 68 yr old M with alcohol abuse and dependance admitted with alcoholic hepatitis in setting of alcoholic cirrhosis with active drinking. 1. Alcoholic hepatitis 2. Cirrhosis 3. Hepatic encephalopathy 4. Ascites 5. Cdiff Antigen 6. Alcohol abuse Plan: -Continue supportive care -Continue zosyn and vancomycin per ID -s/p paracentesis 2L of ascitic tap, negative for SBP, no need for albumin replacement -Continue lactulose daily and titrate to 2 Bm/day for HE -Pt will need elective EGD for variceal evaluation -Continue xifaxan for encephelopathy -Pt still confused will order CT imaging to r/o splenic-renal shunt and evaluate for HCC -Will continue to follow pt closely
--- NOTE | 2018-07-12 11:10 | CP.PCM.PN ---
<Luna Haskins - Last Filed: 07/12/18 11:10> Subjective - Date & Time of Evaluation Date of Evaluation: 07/12/18 Time of Evaluation: 10:00 - Subjective Subjective: GI Fellow PGY5 Progress Note Pt seen and evaluated at bedside, pt alert and awake but still confused. Per 1:1 sitter, pt confused today and not as sleepy as yesterday. Pt had 3BM since 7am today, and 3BM overnight. Pt eating a little. ROS: A 12pt ROS was negative except as above. Objective - Vital Signs/Intake and Output Vital Signs (last 24 hours): Temp Pulse Resp BP Pulse Ox 97.8 F 100 H 20 105/73 95 07/12/18 09:38 07/12/18 09:38 07/12/18 09:38 07/12/18 09:38 07/12/18 09:38 - Medications Medications: Current Medications Folic Acid (Folic Acid) 1 mg PO DAILY [facility] Last Admin: 07/12/18 09:09 Dose: 1 mg Heparin Sodium (Porcine) (Heparin) 5,000 units SC Q12 [facility]; Protocol Last Admin: 07/12/18 09:11 Dose: 5,000 units Piperacillin Sod/Tazobactam (Sod 3.375 gm/ Sodium Chloride) 100 mls @ 100 mls/hr IVPB Q6 [facility]; Protocol Last Admin: 07/12/18 09:09 Dose: 100 mls/hr Lactulose (Enulose) 10 gm PO BID [facility] Last Admin: 07/12/18 09:09 Dose: 10 gm Nadolol (Corgard) 20 mg PO DAILY [facility] Last Admin: 07/12/18 09:09 Dose: 20 mg Rifaximin (Xifaxan) 550 mg PO BID [facility]; Protocol Last Admin: 07/12/18 09:09 Dose: 550 mg Thiamine HCl (Vitamin B1 Tab) 100 mg PO TID [facility] Last Admin: 07/12/18 09:09 Dose: 100 mg Vancomycin HCl (Vancocin (Oral/Rectal Use)) 250 mg PO Q6 [facility]; Protocol Last Admin: 07/12/18 09:09 Dose: 250 mg - Labs Labs: 07/12/18 05:16 07/12/18 05:16 PT 19.6 Seconds (9.8-13.1) H 07/11/18 05:00 INR 1.8 10/09/18 05:00 APTT 33.1 Seconds (25.6-37.1) 07/02/18 22:30 - Constitutional Appears: No Acute Distress, Confused, Cachectic, Chronically Ill - Head Exam Head Exam: ATRAUMATIC, NORMAL INSPECTION, NORMOCEPHALIC - Eye Exam Eye Exam: EOMI, PERRL, Scleral icterus Pupil Exam: PERRL - ENT Exam ENT Exam: Mucous Membranes Dry - Neck Exam Neck Exam: Full ROM. absent: Lymphadenopathy, Tenderness - Respiratory Exam Respiratory Exam: Decreased Breath Sounds, NORMAL BREATHING PATTERN - Cardiovascular Exam Cardiovascular Exam: Tachycardia, +S1, +S2 - GI/Abdominal Exam GI & Abdominal Exam: Distended, Firm, Normal Bowel Sounds. absent: Tenderness - Rectal Exam Rectal Exam: Deferred - Extremities Exam Extremities Exam: Full ROM, Normal Inspection. absent: Pedal Edema - Neurological Exam Neurological Exam: Alert, Awake - Psychiatric Exam Psychiatric exam: Flat Affect - Skin Skin Exam: Dry, Intact, Warm Additional comments: Jaundice Assessment and Plan - Assessment and Plan (Free Text) Assessment: This is a 68 yr old M with alcohol abuse and dependance admitted with alcoholic hepatitis in setting of alcoholic cirrhosis with active drinking. 1. Alcoholic hepatitis 2. Cirrhosis 3. Hepatic encephalopathy 4. Ascites 5. Cdiff Antigen 6. Alcohol abuse Plan: -Continue supportive care -Continue zosyn and vancomycin per ID -s/p paracentesis 2L of ascitic tap, negative for SBP, no need for albumin replacement -Continue lactulose daily and titrate to 2 Bm/day for HE -Pt will need elective EGD for variceal evaluation -Continue xifaxan for encephelopathy -Pt still confused will order CT imaging to r/o splenic-renal shunt and evaluate for HCC -Will continue to follow pt closely <Carley Gomez - Last Filed: 07/12/18 11:14> Objective - Vital Signs/Intake and Output Vital Signs (last 24 hours): Temp Pulse Resp BP Pulse Ox 97.8 F 100 H 20 105/73 95 07/12/18 09:38 07/12/18 09:38 07/12/18 09:38 07/12/18 09:38 07/12/18 09:38 - Medications Medications: Current Medications Folic Acid (Folic Acid) 1 mg PO DAILY [facility] Last Admin: 07/12/18 09:09 Dose: 1 mg Heparin Sodium (Porcine) (Heparin) 5,000 units SC Q12 [facility]; Protocol Last Admin: 07/12/18 09:11 Dose: 5,000 units Piperacillin Sod/Tazobactam (Sod 3.375 gm/ Sodium Chloride) 100 mls @ 100 mls/hr IVPB Q6 [facility]; Protocol Last Admin: 07/12/18 09:09 Dose: 100 mls/hr Lactulose (Enulose) 10 gm PO BID [facility] Last Admin: 07/12/18 09:09 Dose: 10 gm Nadolol (Corgard) 20 mg PO DAILY [facility] Last Admin: 07/12/18 09:09 Dose: 20 mg Rifaximin (Xifaxan) 550 mg PO BID [facility]; Protocol Last Admin: 07/12/18 09:09 Dose: 550 mg Thiamine HCl (Vitamin B1 Tab) 100 mg PO TID [facility] Last Admin: 07/12/18 09:09 Dose: 100 mg Vancomycin HCl (Vancocin (Oral/Rectal Use)) 250 mg PO Q6 [facility]; Protocol Last Admin: 07/12/18 09:09 Dose: 250 mg - Labs Labs: 07/12/18 05:16 07/12/18 05:16 PT 19.6 Seconds (9.8-13.1) H 07/11/18 05:00 INR 1.8 07/11/18 05:00 APTT 33.1 Seconds (25.6-37.1) 07/02/18 22:30 Attending/Attestation - Attestation I have personally seen and examined this patient.: Yes I have fully participated in the care of the patient.: Yes I have reviewed all pertinent clinical information, including history, physical exam and plan: Yes Notes (Text): 07/12/18 11:13 Patient is a 68 yr old M with alcohol abuse and dependance admitted with alcoholic hepatitis in setting of alcoholic cirrhosis with active drinking. Hence not a transplant candidate even though MELD na 22. DF calculated as 39 but not a candidate for steroid due to active drinking. Continue zosyn and vancomycin. s/p 2 lts of ascitic tap. Give lactulose daily and titrate to 2 Bm/day for HE. Will avoid chest tube as pleural effusion is due to he patohydrothorax and will reaccumulate. Can be evaluated for TIPS. Was scheduled for elective EGd for variceal evaluation but was cancelled due to high risk of aspiration during anesthesia and risk of intubation. In setting of non urgent EGd, this was deemed to be cancelled till patient is fully awake and able to protect secretions. Discussed with the primary team. Aspiration precautions. Had long discussion with family regarding cirrhosis, treatment options and complications. Avoid alcohol. Will do CT abdomen with IV contrast today to rule out HCC and spleno renal shunt in setting of persistent HE
[2018-07-13] MEDS: Vancomycin 500 mg (Oral/Rectal USE) PO SCH ×4 (03:53→21:36)
[2018-07-13] MEDS: Piperacillin/Tazobact 3.375 GM in Sodium Chloride 0.9% 100 ML IVPB SCH ×4 (04:00→21:30)
[2018-07-13 05:41] LABS: BASO # 0.2 K/uL (0.0-0.2); BASO % 1.1 % (0.0-2.0); EOS # 0.2 K/uL (0.0-0.7); EOS % 1.4 % (0.0-4.0); HEMOGLOBIN 10.3 g/dL (12.0-18.0); LYMPH # 1.5 K/uL (1.0-4.3); LYMPH % 8.9 % (20.0-40.0); MEAN CELL VOLUME 99.7 fl (80.0-94.0); MEAN CORPUSCULAR HEMOGLOBIN 33.2 pg (27.0-31.0); MEAN CORPUSCULAR HGB CONC 33.3 g/dL (33.0-37.0); MEAN PLATELET VOLUME 8.8 fl (7.2-11.7); MONO # 1.2 K/uL (0.0-0.8); MONO % 6.9 % (0.0-10.0); NEUT % 81.7 % (50.0-75.0); RBC 3.11 Mil/uL (4.40-5.90); RED CELL DISTRIBUTION WIDTH 13.9 % (11.5-14.5); WHITE BLOOD COUNT 17.1 K/uL (4.8-10.8)
[2018-07-13 05:43] LABS: INR 1.9; PROTHROMBIN TIME 21.5 Seconds (9.8-13.1)
[2018-07-13 05:56] LABS: ALB/GLOB RATIO 0.5 (1.0-2.1); ALBUMIN 1.9 g/dL (3.5-5.0); ALT/SGPT 40 U/L (21-72); AST/SGOT 127 U/L (17-59); BLOOD UREA NITROGEN 9 mg/dl (9-20); CALCIUM 7.1 mg/dL (8.4-10.2); GFR NON-AFRICAN AMERICAN > 60
[2018-07-13] MEDS ORDERED: Iohexol 240 (50 ml) PO STA (08:50)
--- NOTE | 2018-07-13 09:01 | CP.PCM.PN ---
<Luna Haskins - Last Filed: 07/13/18 09:08> Subjective - Date & Time of Evaluation Date of Evaluation: 07/13/18 Time of Evaluation: 08:50 - Subjective Subjective: GI Fellow PGY5 Progress Note Pt seen and evaluated at bedside, pt alert and awake but still a little confused. Pt had 6BM overnight. Pt not eating breakfast this am. ROS: A 12pt ROS was negative except as above. Objective - Vital Signs/Intake and Output Vital Signs (last 24 hours): Temp Pulse Resp BP Pulse Ox 97.4 F L 92 H 20 118/79 95 07/13/18 08:15 07/13/18 08:15 07/13/18 08:15 07/13/18 08:15 07/13/18 08:15 - Medications Medications: Current Medications Folic Acid (Folic Acid) 1 mg PO DAILY [facility] Last Admin: 07/12/18 09:09 Dose: 1 mg Heparin Sodium (Porcine) (Heparin) 5,000 units SC Q12 [facility]; Protocol Last Admin: 07/12/18 21:22 Dose: 5,000 units Piperacillin Sod/Tazobactam (Sod 3.375 gm/ Sodium Chloride) 100 mls @ 100 mls/hr IVPB Q6 [facility]; Protocol Last Admin: 07/13/18 04:00 Dose: 100 mls/hr Potassium Chloride (Potassium Chloride 20 Meq/100 Ml) 100 mls @ 50 mls/hr IVPB Q2 [facility] Stop: 07/13/18 11:59 Lactulose (Enulose) 10 gm PO BID [facility] Last Admin: 07/12/18 16:03 Dose: 10 gm Nadolol (Corgard) 20 mg PO DAILY [facility] Last Admin: 07/12/18 09:09 Dose: 20 mg Rifaximin (Xifaxan) 550 mg PO BID [facility]; Protocol Last Admin: 07/12/18 16:02 Dose: 550 mg Thiamine HCl (Vitamin B1 Tab) 100 mg PO TID [facility] Last Admin: 07/12/18 16:02 Dose: 100 mg Vancomycin HCl (Vancocin (Oral/Rectal Use)) 250 mg PO Q6 [facility]; Protocol Last Admin: 07/13/18 03:53 Dose: 250 mg - Labs Labs: 07/13/18 05:10 07/13/18 05:10 PT 21.5 Seconds (9.8-13.1) H 07/13/18 05:10 INR 1.9 07/13/18 05:10 APTT 33.1 Seconds (25.6-37.1) 07/02/18 22:30 - Constitutional Appears: Non-toxic, No Acute Distress, Confused, Cachectic, Chronically Ill - Head Exam Head Exam: ATRAUMATIC, NORMAL INSPECTION, NORMOCEPHALIC - Eye Exam Eye Exam: EOMI, Scleral icterus Pupil Exam: PERRL - ENT Exam ENT Exam: Mucous Membranes Moist - Neck Exam Neck Exam: Full ROM - Respiratory Exam Respiratory Exam: Decreased Breath Sounds, NORMAL BREATHING PATTERN - Cardiovascular Exam Cardiovascular Exam: Tachycardia, +S1, +S2 - GI/Abdominal Exam GI & Abdominal Exam: Distended, Firm, Normal Bowel Sounds. absent: Guarding, Rigid, Soft, Tenderness Additional comments: abdominal wall edema - Extremities Exam Extremities Exam: Full ROM, Normal Inspection. absent: Pedal Edema - Neurological Exam Neurological Exam: Alert, Awake - Psychiatric Exam Psychiatric exam: Flat Affect - Skin Skin Exam: Dry, Intact, Warm Additional comments: jaundiced Assessment and Plan - Assessment and Plan (Free Text) Assessment: This is a 68 yr old M with alcohol abuse and dependance admitted with alcoholic hepatitis in setting of alcoholic cirrhosis with active drinking. 1. Alcoholic hepatitis 2. Cirrhosis 3. Hepatic encephalopathy 4. Ascites 5. Cdiff Antigen 6. Alcohol abuse Plan: -Continue supportive care -Continue zosyn and vancomycin per ID -s/p paracentesis 2L of ascitic tap, negative for SBP, no need for albumin replacement -Continue lactulose daily and titrate to 2 Bm/day for HE, discussed with nursing to decrease lactulose due to 6BM overnight -Pt will need elective EGD for variceal evaluation -Continue xifaxan for encephelopathy -Persistent hepatic encephalopathy, CT imaging to r/o splenic-renal shunt and evaluate for HCC still pending due to pt's noncompliance with test -Monitor labs and electrolytes daily -Today: MELD 20, DF 44.9 -Will continue to follow pt closely <Carley Gomez - Last Filed: 07/13/18 14:17> Objective - Vital Signs/Intake and Output Vital Signs (last 24 hours): Temp Pulse Resp BP Pulse Ox 97.5 F L 98 H 20 116/84 97 07/13/18 13:01 07/13/18 13:01 07/13/18 13:01 07/13/18 13:01 07/13/18 13:01 - Medications Medications: Current Medications Folic Acid (Folic Acid) 1 mg PO DAILY [facility] Last Admin: 07/13/18 10:34 Dose: Not Given Heparin Sodium (Porcine) (Heparin) 5,000 units SC Q12 [facility]; Protocol Last Admin: 07/13/18 10:34 Dose: 5,000 units Piperacillin Sod/Tazobactam (Sod 3.375 gm/ Sodium Chloride) 100 mls @ 100 mls/hr IVPB Q6 [facility]; Protocol Last Admin: 07/13/18 10:36 Dose: 100 mls/hr Lactulose (Enulose) 10 gm PO DAILY [facility] Last Admin: 07/13/18 10:34 Dose: Not Given Nadolol (Corgard) 20 mg PO DAILY [facility] Last Admin: 07/13/18 10:34 Dose: Not Given Rifaximin (Xifaxan) 550 mg PO BID [facility]; Protocol Last Admin: 07/13/18 10:35 Dose: Not Given Thiamine HCl (Vitamin B1 Tab) 100 mg PO TID [facility] Last Admin: 07/13/18 13:14 Dose: Not Given Vancomycin HCl (Vancocin (Oral/Rectal Use)) 250 mg PO Q6 [facility]; Protocol Last Admin: 07/13/18 10:35 Dose: 250 mg - Labs Labs: 07/13/18 05:10 07/13/18 05:10 PT 21.5 Seconds (9.8-13.1) H 07/13/18 05:10 INR 1.9 07/13/18 05:10 APTT 33.1 Seconds (25.6-37.1) 07/02/18 22:30 Attending/Attestation - Attestation I have personally seen and examined this patient.: Yes I have fully participated in the care of the patient.: Yes I have reviewed all pertinent clinical information, including history, physical exam and plan: Yes Notes (Text): 07/13/18 14:14 Patient seen and examined at bedside in am. This is a 68 yr old M with alcohol abuse and dependance admitted with alcoholic hepatitis in setting of alcoholic cirrhosis with active drinking. Hence not a transplant candidate even though MELD na 22. DF calculated as 39 but not a candidate for steroid due to active drinking. Persistent refractory HE with adeequate BM daily on lactulose and rifaximin. s/p 2 lts of ascitic tap. CT abdomen with IV contrast today done to rule out HCC and spleno renal shunt in setting of persistent HE. 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 Due to his current drinking status not a transplant candidate. Primary team to discuss options with the family. Oncology input will be appreciated. No other GI work up necessary. Will sign off. Thank you for letting us participate in the care of your patient
[2018-07-13] MEDS ORDERED: Sodium Chloride 0.9% 50 ML IV ONE (09:58)
[2018-07-13] MEDS ORDERED: Iohexol 300 100 ML IJ ONE (09:58)
[2018-07-13] MEDS: Potassium Chloride 20 mEq 100 ML IVPB SCH ×2 (10:33→10:40)
[2018-07-13] MEDS: Lactulose 10 gm/15 ml Syrup PO SCH (10:34)
--- NOTE | 2018-07-13 12:00 | CP.PCM.PN ---
<Norman Spencer - Last Filed: 07/13/18 13:15> Subjective - Date & Time of Evaluation Date of Evaluation: 07/13/18 Time of Evaluation: 09:30 - Subjective Subjective: Patient seen and examined this morning. NAD, No acute event overnight but seems more sleepy, easily arousable. Patient refused all PO intake this morning including breakfast and PO intake. few BMs overnight but no BM so far in the morning. F/u Abdo/Pelis CT Objective - Vital Signs/Intake and Output Vital Signs (last 24 hours): Temp Pulse Resp BP Pulse Ox 97.4 F L 92 H 20 118/79 95 07/13/18 08:15 07/13/18 09:00 07/13/18 08:15 07/13/18 08:15 07/13/18 08:15 - Medications Medications: Current Medications Folic Acid (Folic Acid) 1 mg PO DAILY [facility] Last Admin: 07/13/18 10:34 Dose: Not Given Heparin Sodium (Porcine) (Heparin) 5,000 units SC Q12 [facility]; Protocol Last Admin: 07/13/18 10:34 Dose: 5,000 units Piperacillin Sod/Tazobactam (Sod 3.375 gm/ Sodium Chloride) 100 mls @ 100 mls/hr IVPB Q6 [facility]; Protocol Last Admin: 07/13/18 10:36 Dose: 100 mls/hr Lactulose (Enulose) 10 gm PO DAILY [facility] Last Admin: 07/13/18 10:34 Dose: Not Given Nadolol (Corgard) 20 mg PO DAILY [facility] Last Admin: 07/13/18 10:34 Dose: Not Given Rifaximin (Xifaxan) 550 mg PO BID [facility]; Protocol Last Admin: 07/13/18 10:35 Dose: Not Given Thiamine HCl (Vitamin B1 Tab) 100 mg PO TID [facility] Last Admin: 07/13/18 10:35 Dose: Not Given Vancomycin HCl (Vancocin (Oral/Rectal Use)) 250 mg PO Q6 [facility]; Protocol Last Admin: 07/13/18 10:35 Dose: 250 mg - Labs Labs: 07/13/18 05:10 07/13/18 05:10 PT 21.5 Seconds (9.8-13.1) H 07/13/18 05:10 INR 1.9 07/13/18 05:10 APTT 33.1 Seconds (25.6-37.1) 07/02/18 22:30 - Constitutional Appears: No Acute Distress - Head Exam Head Exam: NORMAL INSPECTION - Eye Exam Eye Exam: PERRL, Scleral icterus - ENT Exam ENT Exam: Mucous Membranes Moist - Neck Exam Neck Exam: Normal Inspection - Respiratory Exam Respiratory Exam: Clear to Ausculation Bilateral, NORMAL BREATHING PATTERN. absent: Accessory Muscle Use, Chest Wall Tenderness, Decreased Breath Sounds, Rhonchi, Wheezes, Respiratory Distress - Cardiovascular Exam Cardiovascular Exam: REGULAR RHYTHM, +S1, +S2 - GI/Abdominal Exam GI & Abdominal Exam: Distended, Firm, Normal Bowel Sounds. absent: Tenderness - Extremities Exam Extremities Exam: Normal Inspection - Back Exam Back Exam: absent: CVA tenderness (L), CVA tenderness (R) - Neurological Exam Neurological Exam: CN II-XII Intact Neuro motor strength exam: Left Upper Extremity: 3, Right Upper Extremity: 3, Left Lower Extremity: 3, Right Lower Extremity: 3 Additional comments: seems more sleepy and sedated, easily arousable - Psychiatric Exam Psychiatric exam: Normal Affect - Skin Skin Exam: Normal Color Assessment and Plan - Assessment and Plan (Free Text) Assessment: A/P: 68 y/o male admitted for evaluation and treatment of AMS, Encephalopathy, Alcohol withdrawal, dehydration, Decompensated Alcoholic Cirrhosis, elevated transaminases, ALLISON and leukocytosis. Alter Mental status/Metabolic Encephalopathy related to alcohol abuse/Withdrawal - Acute - GI and ID recommendations appreciated, will follow further recommendations - C/w Multi-vitamins, Lactulose, and electrolytes replacement as needed - C/w empiric Zosyn day#10 (Continue till 10 days), Vanco PO Day 4 for C diff , Vanco IV stopped after day7 - C/w Rifaximin 550 BID with lactulose - Elective EGD for variceal evaluation , will follow GI recommendations - Will need to be evaluated for TIPS as out patient - Follow up abdo/pelvis CT Abdominal Distention/Non-tender/Decompensated Alcoholic Cirrhosis/Acute Alcoholic hepatitis - Acute - GI and ID recommendations appreciated, will follow further recommendations - S/p abdominal parasenthesis 07/10, 2L fluids was taken out, No SBP picture - C/w Rifaximin 550 BID with lactulose and Nadolol - C/w empiric Zosyn day#10 (Continue till 10 days), Vanco PO Day 4 for C diff , Vanco IV stopped after day7 - Follow up abdo/pelvis CT C.Diff Antigen positive - Vanco 250mg PO Day #4 Alcohol Withdrawal, Tachycardia possibly secondary to alcohol withdrawal - Ativan PRN - C/w Folic acid, Thiamine Leukocytosis unknown etiology: Reactive vs infection - Afebrile - Will follow ID recommendations - C/w Abx B/L pleural effusions - CT chest and abd u/s reviewed: B/L pleural effusions and moderate ascites. Hepatosteatosis. GB sludge - Consider IR for thoracentesis Electrolytes imbalance: Hypokalemia/ Hypophosphatemia/ Hypomagnesemia/ Hypocalcemia - Possibly due to chronic alcohol use, replete as needed Elevated AST, AST:ALT ratio >2:1 - Improving - Possible due to alcohol use DVT PPX - Heprin 5000 U SC Q12 <Gissel Shen - Last Filed: 07/13/18 15:57> Objective - Vital Signs/Intake and Output Vital Signs (last 24 hours): Temp Pulse Resp BP Pulse Ox 97.5 F L 98 H 20 116/84 97 07/13/18 13:01 07/13/18 13:01 07/13/18 13:01 07/13/18 13:01 07/13/18 13:01 - Medications Medications: Current Medications Folic Acid (Folic Acid) 1 mg PO DAILY [facility] Last Admin: 07/13/18 10:34 Dose: Not Given Heparin Sodium (Porcine) (Heparin) 5,000 units SC Q12 [facility]; Protocol Last Admin: 07/13/18 10:34 Dose: 5,000 units Piperacillin Sod/Tazobactam (Sod 3.375 gm/ Sodium Chloride) 100 mls @ 100 mls/hr IVPB Q6 [facility]; Protocol Last Admin: 07/13/18 10:36 Dose: 100 mls/hr Lactulose (Enulose) 10 gm PO DAILY [facility] Last Admin: 07/13/18 10:34 Dose: Not Given Nadolol (Corgard) 20 mg PO DAILY [facility] Last Admin: 07/13/18 10:34 Dose: Not Given Rifaximin (Xifaxan) 550 mg PO BID [facility]; Protocol Last Admin: 07/13/18 10:35 Dose: Not Given Thiamine HCl (Vitamin B1 Tab) 100 mg PO TID [facility] Last Admin: 07/13/18 13:14 Dose: Not Given Vancomycin HCl (Vancocin (Oral/Rectal Use)) 250 mg PO Q6 [facility]; Protocol Last Admin: 07/13/18 10:35 Dose: 250 mg - Labs Labs: 07/13/18 05:10 07/13/18 05:10 PT 21.5 Seconds (9.8-13.1) H 07/13/18 05:10 INR 1.9 07/13/18 05:10 APTT 33.1 Seconds (25.6-37.1) 07/02/18 22:30 Attending/Attestation - Attestation I have personally seen and examined this patient.: Yes I have fully participated in the care of the patient.: Yes I have reviewed all pertinent clinical information, including history, physical exam and plan: Yes Notes (Text): CT of the Abdomen: Suspected hepatocellular malignancy, infiltrating the right and left lobe of the liver. Hepatic cirrhosis. No evidence of portal venous thrombosis. Extensive ascites. Possible infectious or inflammatory colitis. No evidence of retroperitoneal varices. Small bilateral pleural effusion. Discussed with Dr Gomez- accdg to Dr Gomez - not a candidate for chemotherapy. Rec Hospice Care. Discussed CT scan result with pt's and daughter . Daughter would like to speak with GI . Daughter cell number given to GI fellow .
--- NOTE | 2018-07-13 13:44 | CT ---
Date of service: 07/13/2018 PROCEDURE: CT Abdomen and Pelvis with contrast HISTORY: cirrhosis COMPARISON: None. TECHNIQUE: Contrast dose: 100 mL Omnipaque 300 Radiation dose: Total exam DLP = 818.35 mGy-cm. This CT exam was performed using one or more of the following dose reduction techniques: Automated exposure control, adjustment of the mA and/or kV according to patient size, and/or use of iterative reconstruction technique. FINDINGS: LOWER THORAX: Small bilateral pleural effusion. Bilateral lower lobe compressive atelectasis. Focal opacity in the anterior segment right upper lobe. Rule out pneumonia. LIVER: Nodular hepatic contour consistent with cirrhosis. Large area of heterogeneous decreased attenuation throughout the right lobe of the liver extending into the caudate lobe with mark destruction of portions of the hepatic capsule, suspicious for infiltrating hepatocellular neoplasm. There is also a heterogeneous low-attenuation in the medial segment of the left hepatic lobe, to a lesser extent. No discrete mass identified. No biliary ductal dilatation. GALLBLADDER AND BILE DUCTS: Small gallstones are identified. The gallbladder wall is not thickened. PANCREAS: Unremarkable. No gross lesion or ductal dilatation. SPLEEN: Unremarkable. ADRENALS: Unremarkable. No mass. KIDNEYS AND URETERS: Unremarkable. No hydronephrosis. No solid mass. VASCULATURE: No evidence of abdominal aortic aneurysm. The intrahepatic portion of the inferior vena cava appears extrinsically flattened/compressed. There is no evidence of vena caval thrombus. Three hepatic veins are identified though evaluation is limited at this phase of enhancement. No evidence of portal venous thrombosis. No evidence of splenic venous thrombosis. BOWEL: There is mural thickening of the 2nd and 3rd portions of the duodenum. Multiple diverticula are seen in 3rd portion of the duodenum common nonspecific. There is no evidence of bowel obstruction. There is mural thickening of the ascending colon and of the proximal descending colon consistent with nonspecific colitis. There is low attenuation within the wall of the ascending colon suspicious for old inflammatory bowel disease. This appearance is not seen elsewhere within the colon. There is diverticulosis of the sigmoid colon without evidence of diverticulitis. APPENDIX: Not identified PERITONEUM: Extensive ascites. There is fluid seen within the left inguinal canal indicating patent processus vaginalis. There is herniation of mesenteric fat into the left inguinal canal without evidence of bowel herniation. LYMPH NODES: No enlarged retroperitoneal or pelvic nodes. Few subcentimeter celiac axis nodes are identified. BLADDER: Poorly distended. Grossly REPRODUCTIVE: Normal. Remarkable prostate. BONES: No acute fracture. OTHER FINDINGS: None. IMPRESSION: Suspected hepatocellular malignancy, infiltrating the right and left lobe of the liver. Hepatic cirrhosis. No evidence of portal venous thrombosis. Extensive ascites. Possible infectious or inflammatory colitis. No evidence of retroperitoneal varices. Small bilateral pleural effusion. Cholelithiasis without evidence of cholecystitis. Additional minor findings as above.
--- NOTE | 2018-07-13 15:37 | PQF ---
PROVIDER RESPONSE TEXT: Alcohol Hepatitis, Alcohol Cirrhosis ( present on admission) The patient presented with altered mental status secondary to Metabolic/Hepatic Encephalopathy. Alcohol Hepatitis is another reason aside for Encephalopathy for admission. REVIEWER QUERY TEXT: Present On Admission 2 (two) queries as follows: 1. In agreement with GI that Alcoholic Hepatitis was present on admission and 2. Is this dx. a reason for admission? OR: Unable to determine OR: Other explanation of clinical finding 07/09 and forward GI notes: 68 yr old M with alcohol abuse and dependence admitted with alcoholic hepa titis in setting of alcoholic cirrhosis with active drinking---Mild hepatomegaly with diffuse fatty i nfiltration 101/0: Attending/Resident: progress note: Abdomen distended due to ascitic fluid but ,sclera jaundice d Dr. Landrum's addendum note: admitted with AMS secondary to metabolic / hepatic encephalopathy, diarrhe a and electrolyte abnormalities, ascites ,ETOH withdrawals and c.diff Ag positive Resident note includes: Assessment includes: --Abdominal Distention/Non-tender/Decompensated Alcoholi c Cirrhosis/Acute Alcoholic hepatitis - Acute - GI and ID recommendations appreciated, will follow f teofilo recommendations - S/p abdominal [id number], 2L fluids was taken out, No SBP picture - C/w Rifaximin 550 BID with lactulose - C/w empiric Zosyn day#9 (Continue till 10 days), Vanco PO D ay 2 for C diff , Vanco IV stopped after day7 The patient's Clinical Indicators include: XX Query created by: Kellen Hill on 07/13/2018 11:41 AM Electronically signed by: Gissel Shen MD 07/13/2018 3:34 PM
[2018-07-14] MEDS: Piperacillin/Tazobact 3.375 GM in Sodium Chloride 0.9% 100 ML IVPB SCH ×2 (03:17→09:56)
[2018-07-14] MEDS: Vancomycin 500 mg (Oral/Rectal USE) PO SCH ×4 (03:18→23:23)
[2018-07-14] MEDS: Lactulose 10 gm/15 ml Syrup PO SCH (09:48)
--- NOTE | 2018-07-14 09:53 | CP.PCM.PN ---
<Norman Spencer - Last Filed: 07/14/18 11:55> Subjective - Date & Time of Evaluation Date of Evaluation: 07/14/18 Time of Evaluation: 08:45 - Subjective Subjective: Patient seen and examined this morning at bedside. NAD, no acute event overnight, Patient seems more alert, awake and oriented than yesterday, able to tell me his full name, hospital name and address. Patient had 3 BMs overnight. Objective - Vital Signs/Intake and Output Vital Signs (last 24 hours): Temp Pulse Resp BP Pulse Ox 97.4 F L 111 H 20 117/81 96 07/14/18 09:28 07/14/18 09:28 07/14/18 09:28 07/14/18 09:28 07/14/18 09:28 - Medications Medications: Current Medications Folic Acid (Folic Acid) 1 mg PO DAILY [facility] Last Admin: 07/13/18 10:34 Dose: Not Given Heparin Sodium (Porcine) (Heparin) 5,000 units SC Q12 [facility]; Protocol Last Admin: 07/13/18 21:30 Dose: 5,000 units Piperacillin Sod/Tazobactam (Sod 3.375 gm/ Sodium Chloride) 100 mls @ 100 mls/hr IVPB Q6 [facility]; Protocol Last Admin: 07/14/18 03:17 Dose: 100 mls/hr Magnesium Sulfate/Dextrose (Magnesium Sulfate 1 Gm/100 Ml D5w) 1 gm in 100 mls @ 100 mls/hr IVPB ONCE ONE Stop: 07/14/18 10:59 Lactulose (Enulose) 10 gm PO DAILY [facility] Last Admin: 07/13/18 10:34 Dose: Not Given Nadolol (Corgard) 20 mg PO DAILY [facility] Last Admin: 07/13/18 10:34 Dose: Not Given Potassium Chloride (K-Dur 20 Meq Er Tab) 20 meq PO ONCE ONE Stop: 07/14/18 10:16 Rifaximin (Xifaxan) 550 mg PO BID [facility]; Protocol Last Admin: 07/13/18 17:30 Dose: Not Given Thiamine HCl (Vitamin B1 Tab) 100 mg PO TID [facility] Last Admin: 07/13/18 17:30 Dose: Not Given Vancomycin HCl (Vancocin (Oral/Rectal Use)) 250 mg PO Q6 [facility]; Protocol Last Admin: 07/14/18 03:18 Dose: 250 mg - Labs Labs: 10/11/18 05:10 07/13/18 05:10 PT 21.5 Seconds (9.8-13.1) H 07/13/18 05:10 INR 1.9 07/13/18 05:10 APTT 33.1 Seconds (25.6-37.1) 07/02/18 22:30 - Constitutional Appears: No Acute Distress - Head Exam Head Exam: NORMAL INSPECTION - Eye Exam Eye Exam: Normal appearance - ENT Exam ENT Exam: Mucous Membranes Moist - Neck Exam Neck Exam: Normal Inspection - Respiratory Exam Respiratory Exam: Clear to Ausculation Bilateral, NORMAL BREATHING PATTERN - Cardiovascular Exam Cardiovascular Exam: REGULAR RHYTHM, +S1, +S2 - GI/Abdominal Exam GI & Abdominal Exam: Distended, Firm, Normal Bowel Sounds, Organomegaly (Hepatospleno ). absent: Tenderness - Extremities Exam Extremities Exam: Normal Capillary Refill. absent: Pedal Edema, Tenderness - Back Exam Back Exam: NORMAL INSPECTION. absent: CVA tenderness (L), CVA tenderness (R) - Neurological Exam Neurological Exam: Alert, Awake Neuro motor strength exam: Left Upper Extremity: 3, Right Upper Extremity: 3, Left Lower Extremity: 3, Right Lower Extremity: 3 - Psychiatric Exam Psychiatric exam: Normal Affect - Skin Skin Exam: Normal Color Assessment and Plan - Assessment and Plan (Free Text) Assessment: A/P: 68 y/o male admitted for evaluation and treatment of AMS, Encephalopathy, Alcohol withdrawal, dehydration, decompensated Alcoholic Cirrhosis, elevated transaminases, ALLISON and leukocytosis. Hepatocellular Carcinoma - Abdominal CT: 07/13/18: Suspected HCC, infiltrating right and left lobe of the liver/ Hepatic cirrhosis - Consult HemOnc, Dr. Sofia Harmon, will follow recommendations - As per GI, not a candidate for Chemo, Possible Hospice Alter Mental status/Metabolic Encephalopathy related to alcohol abuse/Withdrawal - Acute - GI and ID recommendations appreciated, will follow further recommendations - C/w Multi-vitamins, Lactulose, and electrolytes replacement as needed - C/w Vanco PO Day 5 for C diff , S/p Zosyn 11days and Vanco 7days - C/w Rifaximin 550 BID with lactulose and Nadolol - Elective EGD for variceal evaluation , will follow GI recommendations - Will need to be evaluated for TIPS as out patient Abdominal Distention/Non-tender/Decompensated Alcoholic Cirrhosis/Acute Alcoholic hepatitis - Acute - GI and ID recommendations appreciated, will follow further recommendations - S/p abdominal parasenthesis 07/10, 2L fluids was taken out, No SBP picture - C/w Rifaximin 550 BID with lactulose and Nadolol - C/w Vanco PO Day 5 for C diff , S/p Zosyn 11days and Vanco 7days C.Diff Antigen positive - Vanco 250mg PO Day #5 Alcohol Withdrawal, Tachycardia possibly secondary to alcohol withdrawal - Ativan PRN - C/w Folic acid, Thiamine Leukocytosis unknown etiology: Reactive vs infection - Afebrile - Will follow ID recommendations - C/w Abx B/L pleural effusions - CT chest and abd u/s reviewed: B/L pleural effusions and moderate ascites. Hepatosteatosis. GB sludge - Consider IR for thoracentesis Electrolytes imbalance: Hypokalemia/ Hypophosphatemia/ Hypomagnesemia/ Hypocalcemia - Possibly due to chronic alcohol use, replete as needed Elevated AST, AST:ALT ratio >2:1 - Improving - Possible due to alcohol use DVT PPX - Heprin 5000 U SC Q12 <Gissel Shen - Last Filed: 07/14/18 16:28> Objective - Vital Signs/Intake and Output Vital Signs (last 24 hours): Temp Pulse Resp BP Pulse Ox 97.9 F 113 H 20 129/83 94 L 07/14/18 12:42 07/14/18 12:42 07/14/18 12:42 07/14/18 12:42 07/14/18 12:42 - Medications Medications: Current Medications Folic Acid (Folic Acid) 1 mg PO DAILY [facility] Last Admin: 07/14/18 09:48 Dose: 1 mg Heparin Sodium (Porcine) (Heparin) 5,000 units SC Q12 [facility]; Protocol Last Admin: 07/14/18 09:49 Dose: 5,000 units Lactulose (Enulose) 10 gm PO DAILY [facility] Last Admin: 07/14/18 09:48 Dose: 10 gm Nadolol (Corgard) 20 mg PO DAILY [facility] Last Admin: 07/14/18 09:48 Dose: 20 mg Rifaximin (Xifaxan) 550 mg PO BID [facility]; Protocol Last Admin: 07/14/18 09:56 Dose: 550 mg Thiamine HCl (Vitamin B1 Tab) 100 mg PO TID [facility] Last Admin: 07/14/18 09:56 Dose: 100 mg Vancomycin HCl (Vancocin (Oral/Rectal Use)) 250 mg PO Q6 [facility]; Protocol Last Admin: 07/14/18 09:52 Dose: 250 mg - Labs Labs: 07/13/18 05:10 07/13/18 05:10 PT 21.5 Seconds (9.8-13.1) H 07/13/18 05:10 INR 1.9 07/13/18 05:10 APTT 33.1 Seconds (25.6-37.1) 07/02/18 22:30 Attending/Attestation - Attestation I have personally seen and examined this patient.: Yes I have fully participated in the care of the patient.: Yes I have reviewed all pertinent clinical information, including history, physical exam and plan: Yes Notes (Text): 07/14/18 16:21 Hepatocellular CA, poor prognosis - not candidate for surgery nor chemotherapy -Discussed test results , poor prognosis with family , discussed Hospice Care, family undecided regarding Hospice AMS - multifactorial - sec to Metabolic Encephalopathy , Hepatic Enceph, Alcohol Withdrawal and also due to HCC currently improving - off 1:1 - pt awake, oriented to person and place, follows simple commands - Lactulose , Rifaximin Alcohol Cirrhosis with ascites, Coagulopathy Severely Deconditioned - Physical Therapy consult C Diff Colitis improving cont PO Vanco and Rifaximin
[2018-07-14] MEDS ORDERED: Magnesium Sulfate 1 gm in D5W 1 GM/100 ML BAG IVPB ONE (10:00)
[2018-07-14] MEDS ORDERED: Potassium Chloride 20 mEq ER Tab PO ONE (10:15)
--- NOTE | 2018-07-14 10:25 | CP.PCM.PCO ---
Additional Comments - Additional Comments Additional Comments: GI Fellow PGY5 07/14/2018, 10:20am Called and discussed pt Seamus Montelongo's diagnosis of HCC with patients daughter Radha at [phone]. Reviewed in detail his new diagnosis in setting of cirrhosis and advanced disease on imaging and poor prognosis. Recommend primary team to consult Oncology to further evaluate and discuss plan of care and treatment options with family. Dr. Shen and primary team made aware of request for consult. Pt's daughter will like to talk to primary team again as well as Oncology about her father's disease and possible hospice care.
--- NOTE | 2018-07-14 11:25 | CP.PCM.CON ---
History of Present Illness - History of Present Illness History of Present Illness: This is a 68 yrs old male who cane to the ED with acute mental changes. He was found in a car in this state. He has a h/o alcohol abuse, and has vertigo when he tries to stand up He had a previous admission on 07/05, a few tests were done but pt signed out before they could be completed. The symptoms now were thought to be due to alcohol withdrawal or encephalopathy. After admission he had a ct scan of the abdomen which showed a hepatocellular carcinoma. This was large in size and he was not a surgical candidate. Family had requested a hospice referral if no chemotherapy can be given. He has a past h/o alcohol abuse and is a smoker. Past Patient History - Past Medical History & Family History Past Medical History?: Yes - Past Social History Smoking Status: Former Smoker - CARDIAC Hx Cardiac Disorders: No - PULMONARY Hx Respiratory Disorders: No - NEUROLOGICAL Hx Neurological Disorder: No - HEENT Hx HEENT Problems: No - RENAL Hx Chronic Kidney Disease: No - ENDOCRINE/METABOLIC Hx Endocrine Disorders: No - HEMATOLOGICAL/ONCOLOGICAL Hx Blood Disorders: No - INTEGUMENTARY Hx Dermatological Problems: No - MUSCULOSKELETAL/RHEUMATOLOGICAL Hx Falls: Yes - GASTROINTESTINAL Hx Gastrointestinal Disorders: No - GENITOURINARY/GYNECOLOGICAL Hx Genitourinary Disorders: No - PSYCHIATRIC Hx Substance Use: No - SURGICAL HISTORY Hx Herniorrhaphy: Yes Hx Orthopedic Surgery: Yes (Right shoulder surgery) - ANESTHESIA Hx Anesthesia: Yes Hx Anesthesia Reactions: No Hx Malignant Hyperthermia: No Meds Allergies/Adverse Reactions: Allergies Allergy/AdvReac Type Severity Reaction Status Date / Time No Known Allergies Allergy Verified 07/02/18 21:23 - Medications Medications: Current Medications Folic Acid (Folic Acid) 1 mg PO DAILY [facility] Last Admin: 07/14/18 09:48 Dose: 1 mg Heparin Sodium (Porcine) (Heparin) 5,000 units SC Q12 [facility]; Protocol Last Admin: 07/14/18 09:49 Dose: 5,000 units Lactulose (Enulose) 10 gm PO DAILY [facility] Last Admin: 07/14/18 09:48 Dose: 10 gm Nadolol (Corgard) 20 mg PO DAILY [facility] Last Admin: 07/14/18 09:48 Dose: 20 mg Rifaximin (Xifaxan) 550 mg PO BID [facility]; Protocol Last Admin: 07/14/18 09:56 Dose: 550 mg Thiamine HCl (Vitamin B1 Tab) 100 mg PO TID [facility] Last Admin: 07/14/18 09:56 Dose: 100 mg Vancomycin HCl (Vancocin (Oral/Rectal Use)) 250 mg PO Q6 [facility]; Protocol Last Admin: 07/14/18 09:52 Dose: 250 mg Physical Exam - Additional Findings Additional findings: Physical exam; Pt is very agitated and lashing out at the nursing staff. neck supple, no adenopathy Chest; NO rales or rhonchi heart; RSR,no murmur abd Could not be well examined because pt would not allow it. Results - Vital Signs Recent Vital Signs: Last Vital Signs Temp 97.4 F L 07/14/18 09:28 Pulse 111 H 07/14/18 09:48 Resp 20 07/14/18 09:28 BP 117/81 07/14/18 09:48 Pulse Ox 96 07/14/18 09:28 - Labs Result Diagrams: 07/13/18 05:10 07/13/18 05:10 Assessment & Plan - Assessment and Plan (Free Text) Assessment: Impression; Hepatocellular carcinoma, alcoholic cirrhosis and encephalopathy Plan: Plan; I suggest supportive care only because pt is not a candidate for surgery or for chemotherapy, due to his advanced disease and encephalopathy - Date & Time Date: 07/14/18 Time: 11:50
--- NOTE | 2018-07-14 11:33 | CP.PCM.CON ---
Past Patient History - Past Medical History & Family History Past Medical History?: Yes - Past Social History Smoking Status: Former Smoker - CARDIAC Hx Cardiac Disorders: No - PULMONARY Hx Respiratory Disorders: No - NEUROLOGICAL Hx Neurological Disorder: No - HEENT Hx HEENT Problems: No - RENAL Hx Chronic Kidney Disease: No - ENDOCRINE/METABOLIC Hx Endocrine Disorders: No - HEMATOLOGICAL/ONCOLOGICAL Hx Blood Disorders: No - INTEGUMENTARY Hx Dermatological Problems: No - MUSCULOSKELETAL/RHEUMATOLOGICAL Hx Falls: Yes - GASTROINTESTINAL Hx Gastrointestinal Disorders: No - GENITOURINARY/GYNECOLOGICAL Hx Genitourinary Disorders: No - PSYCHIATRIC Hx Substance Use: No - SURGICAL HISTORY Hx Herniorrhaphy: Yes Hx Orthopedic Surgery: Yes (Right shoulder surgery) - ANESTHESIA Hx Anesthesia: Yes Hx Anesthesia Reactions: No Hx Malignant Hyperthermia: No Meds Allergies/Adverse Reactions: Allergies Allergy/AdvReac Type Severity Reaction Status Date / Time No Known Allergies Allergy Verified 07/02/18 21:23 - Medications Medications: Current Medications Folic Acid (Folic Acid) 1 mg PO DAILY [facility] Last Admin: 07/14/18 09:48 Dose: 1 mg Haloperidol Lactate (Haldol) 0.5 mg IVP ONCE ONE Stop: 07/14/18 11:31 Heparin Sodium (Porcine) (Heparin) 5,000 units SC Q12 [facility]; Protocol Last Admin: 07/14/18 09:49 Dose: 5,000 units Lactulose (Enulose) 10 gm PO DAILY [facility] Last Admin: 07/14/18 09:48 Dose: 10 gm Nadolol (Corgard) 20 mg PO DAILY [facility] Last Admin: 07/14/18 09:48 Dose: 20 mg Rifaximin (Xifaxan) 550 mg PO BID [facility]; Protocol Last Admin: 07/14/18 09:56 Dose: 550 mg Thiamine HCl (Vitamin B1 Tab) 100 mg PO TID [facility] Last Admin: 07/14/18 09:56 Dose: 100 mg Vancomycin HCl (Vancocin (Oral/Rectal Use)) 250 mg PO Q6 [facility]; Protocol Last Admin: 07/14/18 09:52 Dose: 250 mg Results - Vital Signs Recent Vital Signs: Last Vital Signs Temp 97.4 F L 07/14/18 09:28 Pulse 111 H 07/14/18 09:48 Resp 20 07/14/18 09:28 BP 117/81 07/14/18 09:48 Pulse Ox 96 07/14/18 09:28 - Labs Result Diagrams: 07/13/18 05:10 07/13/18 05:10
[2018-07-14 16:28] LABS: BASO # 0.3 K/uL (0.0-0.2); BASO % 1.2 % (0.0-2.0); EOS # 0.2 K/uL (0.0-0.7); EOS % 0.9 % (0.0-4.0); HEMOGLOBIN 14.7 g/dL (12.0-18.0); LYMPH # 1.7 K/uL (1.0-4.3); LYMPH % 8.2 % (20.0-40.0); MEAN CELL VOLUME 100.3 fl (80.0-94.0); MEAN CORPUSCULAR HEMOGLOBIN 33.1 pg (27.0-31.0); MONO # 1.1 K/uL (0.0-0.8); MONO % 5.2 % (0.0-10.0); NEUT # 17.4 K/uL (1.8-7.0); NEUT % 84.5 % (50.0-75.0); NRBC % 0.1 % (0.0-0.0); RBC 4.44 Mil/uL (4.40-5.90); RED CELL DISTRIBUTION WIDTH 14.5 % (11.5-14.5); WHITE BLOOD COUNT 20.6 K/uL (4.8-10.8)
[2018-07-14 16:42] LABS: ALB/GLOB RATIO 0.5 (1.0-2.1); ALBUMIN 2.8 g/dL (3.5-5.0); ALT/SGPT 62 U/L (21-72); AST/SGOT 235 U/L (17-59); BLOOD UREA NITROGEN 13 mg/dl (9-20); CALCIUM 8.6 mg/dL (8.4-10.2); GFR NON-AFRICAN AMERICAN > 60
--- NOTE | 2018-07-14 19:02 | PCM.EEG ---
Electroencephalogram Report - Electroencephalogram Report Procedure Date: 07/13/18 Condition of Recording: Awake, Drowsy Medication: Lactulose, Vancomycin. Interpretation: Indication; Alter mental status Technical Information: This was a 21 -channel EEG, 1-channel EKG routine EEG performed using an [employer]kr machine. Electrodes were applied using the 10/20 international placement system. During active states, the EEG contained symmetric 10-20 Hz,20-30 uV activity seen bi-frontally. . During resting wakefulness there was a symmetric posterior dominant rhythm at 8.5-9.5 Hz, 30-50 uV, which was reactive to eye opening and closing. . Drowsiness was associated with fragmentation of the posterior dominant rhythm and with slow roving eye movements. EEG show low amplitude. Hyperventilation was not performed. Photic stimulation was performed and there were no changes on the record. Focal abnormality; none ECG was associated with a normal sinus rhythm. Impression: Impression: This is a normal awake and drowsy electroencephalogram. EEG is of low amplitude, this is a non specific finding however it is usually seen in patients with history of chronic alcoholism.
[2018-07-15] MEDS: Vancomycin 500 mg (Oral/Rectal USE) PO SCH ×4 (04:30→21:30)
[2018-07-15 08:33] LABS: BASO # 0.1 K/uL (0.0-0.2); BASO % 0.5 % (0.0-2.0); EOS # 0.1 K/uL (0.0-0.7); EOS % 0.6 % (0.0-4.0); HEMOGLOBIN 12.4 g/dL (12.0-18.0); LYMPH # 1.8 K/uL (1.0-4.3); LYMPH % 9.2 % (20.0-40.0); MEAN CELL VOLUME 98.8 fl (80.0-94.0); MEAN CORPUSCULAR HEMOGLOBIN 32.2 pg (27.0-31.0); MEAN CORPUSCULAR HGB CONC 32.6 g/dL (33.0-37.0); MEAN PLATELET VOLUME 9.5 fl (7.2-11.7); MONO # 1.2 K/uL (0.0-0.8); MONO % 5.9 % (0.0-10.0); NEUT # 16.6 K/uL (1.8-7.0); NEUT % 83.8 % (50.0-75.0); NRBC % 0.1 % (0.0-0.0); RBC 3.83 Mil/uL (4.40-5.90); RED CELL DISTRIBUTION WIDTH 14.4 % (11.5-14.5); WHITE BLOOD COUNT 19.8 K/uL (4.8-10.8)
[2018-07-15 09:04] LABS: ALB/GLOB RATIO 0.5 (1.0-2.1); ALBUMIN 2.2 g/dL (3.5-5.0); ALT/SGPT 64 U/L (21-72); AST/SGOT 195 U/L (17-59); BLOOD UREA NITROGEN 13 mg/dl (9-20); CALCIUM 8.2 mg/dL (8.4-10.2); GFR NON-AFRICAN AMERICAN > 60
[2018-07-15] MEDS: Lactulose 10 gm/15 ml Syrup PO SCH (10:07)
--- NOTE | 2018-07-15 10:40 | CP.PCM.PN ---
Addendum entered and electronically signed by Peyton Landrum MD 07/15/18 13:53: Patient seen and examined bedside .All chart and clinical data reviewed . Case discussed with resident . Agree with assessment and plan Chronically ill with poor prognosis, lethargic Family aware of prognosis Had discussion with daughter . W Will call hospice otoniel Original Note: Subjective - Date & Time of Evaluation Date of Evaluation: 07/15/18 Time of Evaluation: 09:20 - Subjective Subjective: Patient seen and examined this morning at bedside. NAD, no acute event overnight, Patient seems alert, awake and oriented, able to tell me his full name, hospital name and address. Patient had fee loose BMs overnight. Possible Hospice Objective - Vital Signs/Intake and Output Vital Signs (last 24 hours): Temp Pulse Resp BP Pulse Ox 97.0 F L 101 H 16 111/81 95 07/15/18 05:00 07/15/18 10:04 07/15/18 05:00 07/15/18 10:04 07/15/18 05:00 - Medications Medications: Current Medications Folic Acid (Folic Acid) 1 mg PO DAILY [facility] Last Admin: 07/15/18 10:07 Dose: 1 mg Heparin Sodium (Porcine) (Heparin) 5,000 units SC Q12 [facility]; Protocol Last Admin: 07/15/18 10:07 Dose: 5,000 units Lactulose (Enulose) 10 gm PO DAILY [facility] Last Admin: 07/15/18 10:07 Dose: 10 gm Nadolol (Corgard) 20 mg PO DAILY [facility] Last Admin: 07/15/18 10:04 Dose: 20 mg Rifaximin (Xifaxan) 550 mg PO BID [facility]; Protocol Last Admin: 07/15/18 10:13 Dose: 550 mg Thiamine HCl (Vitamin B1 Tab) 100 mg PO TID [facility] Last Admin: 07/15/18 10:13 Dose: 100 mg Vancomycin HCl (Vancocin (Oral/Rectal Use)) 250 mg PO Q6 [facility]; Protocol Last Admin: 07/15/18 10:12 Dose: 250 mg - Labs Labs: 07/15/18 07:45 07/15/18 07:45 PT 21.5 Seconds (9.8-13.1) H 07/13/18 05:10 INR 1.9 07/13/18 05:10 APTT 33.1 Seconds (25.6-37.1) 07/02/18 22:30 - Constitutional Appears: No Acute Distress - Head Exam Head Exam: NORMAL INSPECTION - Eye Exam Eye Exam: Normal appearance - ENT Exam ENT Exam: Mucous Membranes Moist - Neck Exam Neck Exam: Normal Inspection - Respiratory Exam Respiratory Exam: Clear to Ausculation Bilateral, NORMAL BREATHING PATTERN - Cardiovascular Exam Cardiovascular Exam: REGULAR RHYTHM, +S1, +S2 - GI/Abdominal Exam GI & Abdominal Exam: Distended, Firm, Normal Bowel Sounds, Organomegaly. absent: Tenderness - Neurological Exam Neurological Exam: Alert, Awake - Psychiatric Exam Psychiatric exam: Normal Affect - Skin Skin Exam: Normal Color Assessment and Plan - Assessment and Plan (Free Text) Assessment: Hepatocellular Carcinoma, poor prognosis - Abdominal CT: 07/13/18: Suspected HCC, infiltrating right and left lobe of the liver/ Hepatic cirrhosis - Consult HemOnc, Dr. Sofia Harmon, recommendations appreciated - As per HemOnc and GI: not a candidate for Chemo, Possible Hospice, family is aware Alter Mental status/Multifactorial/Metabolic Encephalopathy related to alcohol abuse/Withdrawal - Acute - GI and ID recommendations appreciated, will follow further recommendations - C/w Multi-vitamins, Lactulose, and electrolytes replacement as needed - C/w Vanco PO Day 6 for C diff , S/p Zosyn 11days and Vanco 7days - C/w Rifaximin 550 BID with lactulose and Nadolol - Elective EGD/TIPS - EEG: Consistent with chronic alcoholism Abdominal Distention/Non-tender/Decompensated Alcoholic Cirrhosis/Acute Alcoholic hepatitis - Acute - GI and ID recommendations appreciated, will follow further recommendations - S/p abdominal parasenthesis 07/10, 2L fluids was taken out, No SBP picture - C/w Rifaximin 550 BID with lactulose and Nadolol - C/w Vanco PO Day 6 for C diff , S/p Zosyn 11days and Vanco 7days C.Diff Antigen positive, improved - Vanco 250mg PO Day #6 Alcohol Withdrawal, Tachycardia possibly secondary to alcohol withdrawal - Ativan PRN - C/w Folic acid, Thiamine Leukocytosis unknown etiology: Reactive vs infection - Afebrile - Will follow ID recommendations - C/w Abx B/L pleural effusions - CT chest and abd u/s reviewed: B/L pleural effusions and moderate ascites. Hepatosteatosis. GB sludge - Consider IR for thoracentesis Electrolytes imbalance: Hypokalemia/ Hypophosphatemia/ Hypomagnesemia/ Hypocalcemia - Possibly due to chronic alcohol use, replete as needed Elevated AST, AST:ALT ratio >2:1 - Improving - Possible due to alcohol use DVT PPX - Heprin 5000 U SC Q12
[2018-07-15] MEDS: Potassium Ch 20mEq in D5-1/2NS 1,000 ML IV SCH (22:29)
[2018-07-16] MEDS: Vancomycin 500 mg (Oral/Rectal USE) PO SCH ×4 (04:24→21:07)
[2018-07-16 08:05] LABS: BASO # 0.2 K/uL (0.0-0.2); BASO % 1.1 % (0.0-2.0); EOS # 0.4 K/uL (0.0-0.7); EOS % 2.3 % (0.0-4.0); HEMOGLOBIN 11.2 g/dL (12.0-18.0); LYMPH # 1.7 K/uL (1.0-4.3); LYMPH % 9.1 % (20.0-40.0); MEAN CELL VOLUME 99.4 fl (80.0-94.0); MEAN CORPUSCULAR HEMOGLOBIN 32.4 pg (27.0-31.0); MEAN CORPUSCULAR HGB CONC 32.6 g/dL (33.0-37.0); MEAN PLATELET VOLUME 9.3 fl (7.2-11.7); MONO # 1.2 K/uL (0.0-0.8); MONO % 6.7 % (0.0-10.0); NEUT % 80.8 % (50.0-75.0); PLATELET COUNT 174 K/uL (130-400); RBC 3.45 Mil/uL (4.40-5.90); RED CELL DISTRIBUTION WIDTH 14.6 % (11.5-14.5); WHITE BLOOD COUNT 18.6 K/uL (4.8-10.8)
[2018-07-16] MEDS: Potassium Ch 20mEq in D5-1/2NS 1,000 ML IV SCH (08:57)
[2018-07-16 10:23] LABS: BANDS 3 % (0-2); EOSINOPHIL 4 % (0-7); LYMPHOCYTE 12 % (20-50); MONOCYTE 5 % (0-10); NEUTROPHIL 76 % (42-75); TOTAL CELLS COUNTED 100
[2018-07-16 10:24] LABS: PLATELET ESTIMATE NORMAL (NORMAL)
[2018-07-16] MEDS: Lactulose 10 gm/15 ml Syrup PO SCH ×2 (10:34→14:14)
[2018-07-16] MEDS ORDERED: Potassium Ch 20mEq in D5-1/2NS 1,000 ML IV SCH (10:35)
[2018-07-16 10:38] LABS: ANISOCYTOSIS SLIGHT; TOXIC GRANULATION PRESENT
--- NOTE | 2018-07-16 12:06 | CP.PCM.PN ---
Addendum entered and electronically signed by Peyton Landrum MD 07/16/18 16:07: Patient seen and examined bedside .All chart and clinical data reviewed . Case discussed with resident . Agree with assessment and plan. 68 y/o male with PMH ETOH abuse brought in for AMS . He was admitted with metabolic/ hepatic encephalopathy ,ascites , ALLISON,electrolyte abnormalities,ETOH withdrawals and c.diff colitis CT abdomen showed HCC of the right and left lobe GI and oncology consulted . Patient has poor prognosis, not a candidate for chemo or surgery Family informed about diagnosis and prognosis but not ready for hospice at present . Patient's mental status is better , alert awake , sleepy at times Family requests some physical therapy to try to get patient more ambulatory. Will call PT francisal Will refer patient to [facility] Continue current management for now Original Note: Subjective - Date & Time of Evaluation Date of Evaluation: 07/16/18 Time of Evaluation: 12:04 - Subjective Subjective: Patient seen at bedside appears more lethargic then yesterday. Responds to pain and opens eyes, however is not conversating much this AM. He is refusing to take his medications this morning. Has poor appetite. No sedatives given over night. Objective - Vital Signs/Intake and Output Vital Signs (last 24 hours): Temp Pulse Resp BP Pulse Ox 97.5 F L 90 18 105/66 100 07/16/18 09:44 07/16/18 09:44 07/16/18 09:44 07/16/18 09:44 07/16/18 09:44 - Medications Medications: Current Medications Folic Acid (Folic Acid) 1 mg PO DAILY [facility] Last Admin: 07/16/18 10:35 Dose: Not Given Heparin Sodium (Porcine) (Heparin) 5,000 units SC Q12 [facility]; Protocol Last Admin: 07/16/18 09:53 Dose: 5,000 units Potassium Chloride/Dextrose/Sod Cl (Potassium Chl 20 Meq In D5-1/2ns) 1,000 mls @ 75 mls/hr IV .[id number] [facility] Stop: 07/16/18 21:33 Lactulose (Enulose) 10 gm PO DAILY [facility] Last Admin: 07/16/18 10:34 Dose: Not Given Nadolol (Corgard) 20 mg PO DAILY [facility] Last Admin: 07/16/18 10:34 Dose: Not Given Rifaximin (Xifaxan) 550 mg PO BID [facility]; Protocol Last Admin: 07/16/18 10:35 Dose: Not Given Thiamine HCl (Vitamin B1 Tab) 100 mg PO TID [facility] Last Admin: 07/16/18 10:35 Dose: Not Given Vancomycin HCl (Vancocin (Oral/Rectal Use)) 250 mg PO Q6 [facility]; Protocol Last Admin: 07/16/18 10:35 Dose: Not Given - Labs Labs: 07/16/18 07:50 07/15/18 07:45 PT 21.5 Seconds (9.8-13.1) H 07/13/18 05:10 INR 1.9 07/13/18 05:10 APTT 33.1 Seconds (25.6-37.1) 07/02/18 22:30 - Constitutional Appears: No Acute Distress - Head Exam Head Exam: NORMAL INSPECTION - Eye Exam Eye Exam: Normal appearance - ENT Exam ENT Exam: Mucous Membranes Moist - Neck Exam Neck Exam: Normal Inspection - Respiratory Exam Respiratory Exam: Clear to Ausculation Bilateral, NORMAL BREATHING PATTERN - Cardiovascular Exam Cardiovascular Exam: REGULAR RHYTHM, +S1, +S2 - GI/Abdominal Exam GI & Abdominal Exam: Distended, Normal Bowel Sounds - Neurological Exam Neurological Exam: Alert, Awake - Skin Skin Exam: Normal Color, Warm Assessment and Plan - Assessment and Plan (Free Text) Assessment: Assessment: Hepatocellular Carcinoma, poor prognosis - Abdominal CT: 07/13/18: Suspected HCC, infiltrating right and left lobe of the liver/ Hepatic cirrhosis - Consult HemOnc, Dr. Sofia Harmon, recommendations appreciated - As per HemOnc and GI: not a candidate for Chemo, Possible Hospice, family is aware Alter Mental status/Multifactorial/Metabolic Encephalopathy related to alcohol abuse/Withdrawal - Acute - Ammonia : 16 - GI and ID recommendations appreciated, will follow further recommendations - C/w Multi-vitamins, Lactulose, and electrolytes replacement as needed - C/w Vanco PO Day 7 for C diff , S/p Zosyn 11days and Vanco 7days - C/w Rifaximin 550 BID with lactulose and Nadolol - Elective EGD/TIPS - EEG: Consistent with chronic alcoholism Abdominal Distention/Non-tender/Decompensated Alcoholic Cirrhosis/Acute Alcoholic hepatitis - Acute - GI and ID recommendations appreciated, will follow further recommendations - S/p abdominal parasenthesis 07/10, 2L fluids was taken out, No SBP picture - C/w Rifaximin 550 BID with lactulose and Nadolol - C/w Vanco PO Day 7 for C diff , S/p Zosyn 11days and Vanco 7days - Will reconsult IR tommorrow for Parasentesis. Patient's stomach appears more distended today then baseline. C.Diff Antigen positive, improved - Vanco 250mg PO Day #7 Alcohol Withdrawal, Tachycardia possibly secondary to alcohol withdrawal - Ativan PRN - C/w Folic acid, Thiamine Leukocytosis unknown etiology: Reactive vs infection - Afebrile - Will follow ID recommendations - C/w Abx B/L pleural effusions - CT chest and abd u/s reviewed: B/L pleural effusions and moderate ascites. Hepatosteatosis. GB sludge - Consider IR for thoracentesis Elevated AST, AST:ALT ratio >2:1 - Improving - Possible due to alcohol use DVT PPX - Heprin 5000 U SC Q12
[2018-07-17] MEDS: Vancomycin 500 mg (Oral/Rectal USE) PO SCH ×3 (03:08→17:44)
[2018-07-17 08:29] LABS: HEMOGLOBIN 12.9 g/dL (12.0-18.0); MEAN CELL VOLUME 100.4 fl (80.0-94.0); MEAN CORPUSCULAR HEMOGLOBIN 32.5 pg (27.0-31.0); MEAN CORPUSCULAR HGB CONC 32.3 g/dL (33.0-37.0); RBC 3.98 Mil/uL (4.40-5.90)
[2018-07-17 08:34] LABS: ALB/GLOB RATIO 0.5 (1.0-2.1); ALBUMIN 2.3 g/dL (3.5-5.0); ALT/SGPT 59 U/L (21-72); AST/SGOT 224 U/L (17-59); BLOOD UREA NITROGEN 14 mg/dl (9-20); CALCIUM 8.2 mg/dL (8.4-10.2); GFR NON-AFRICAN AMERICAN > 60
[2018-07-17] MEDS: Lactulose 10 gm/15 ml Syrup PO SCH (09:22)
--- NOTE | 2018-07-17 10:51 | CP.PCM.PN ---
Subjective - Date & Time of Evaluation Date of Evaluation: 07/17/18 Time of Evaluation: 10:47 - Subjective Subjective: Pt seems a little calmer today. the hospice plan was rejected by the family and he may be transferred to sub acute rehab. Objective - Vital Signs/Intake and Output Vital Signs (last 24 hours): Temp Pulse Resp BP Pulse Ox 97.0 F L 101 H 20 133/66 96 07/17/18 08:15 07/17/18 08:15 07/17/18 08:15 07/17/18 09:22 07/17/18 08:15 - Medications Medications: Current Medications Folic Acid (Folic Acid) 1 mg PO DAILY [facility] Last Admin: 07/17/18 09:22 Dose: 1 mg Heparin Sodium (Porcine) (Heparin) 5,000 units SC Q12 [facility]; Protocol Last Admin: 07/16/18 21:04 Dose: 5,000 units Lactulose (Enulose) 10 gm PO DAILY [facility] Last Admin: 07/17/18 09:22 Dose: 10 gm Nadolol (Corgard) 20 mg PO DAILY [facility] Last Admin: 07/17/18 09:22 Dose: 20 mg Rifaximin (Xifaxan) 550 mg PO BID [facility]; Protocol Last Admin: 07/17/18 09:23 Dose: 550 mg Thiamine HCl (Vitamin B1 Tab) 100 mg PO TID [facility] Last Admin: 07/17/18 09:23 Dose: 100 mg Vancomycin HCl (Vancocin (Oral/Rectal Use)) 250 mg PO Q6 [facility]; Protocol Last Admin: 07/17/18 09:22 Dose: 250 mg - Labs Labs: 07/17/18 07:30 07/17/18 07:30 PT 21.5 Seconds (9.8-13.1) H 07/13/18 05:10 INR 1.9 07/13/18 05:10 APTT 33.1 Seconds (25.6-37.1) 07/02/18 22:30
--- NOTE | 2018-07-17 11:14 | CP.PCM.DIS ---
Addendum entered and electronically signed by Peyton Landrum MD 07/17/18 14:51: Patient seen and examined bedside . All chart and clinical data reviewed . Case discussed with resident . Agree with assessment and discharge planning Patient has poor prognosis due to HCC and hepatic encephalopathy Will discharge to [facility] for PT and continuation of antibiotics Family is aware of poor prognosis. Original Note: Provider - Provider Date of Admission: 07/03/18 01:09 Attending physician: Jose Alfredo Martinez Primary care physician: None Consults: VINAY, Dr. Jason Ramirez, Dr. Faustino ARGUETA, Dr. Porras Time Spent in preparation of Discharge (in minutes): 40 Hospital Course - Lab Results Lab Results: Micro Results 07/10/18 12:50 Body Fluid - Ascites Fluid Gram Stain - Final 07/10/18 12:50 Body Fluid - Ascites Fluid Body Fluid Culture - Final No growth. 07/03/18 08:45 Blood-Venous Blood Culture - Final NO GROWTH AFTER 5 DAYS 07/03/18 08:45 Blood-Venous Gram Stain - Final TEST NOT PERFORMED 07/03/18 08:45 Blood-Venous Blood Culture - Final NO GROWTH AFTER 5 DAYS 07/03/18 08:45 Blood-Venous Gram Stain - Final TEST NOT PERFORMED 07/03/18 17:39 Urine,Clean Catch Urine Culture - Final No Growth (<1,000 CFU/ML) Most Recent Lab Values WBC 17.0 K/uL (4.8-10.8) H 07/17/18 07:30 RBC 3.98 Mil/uL (4.40-5.90) L 07/17/18 07:30 Hgb 12.9 g/dL (12.0-18.0) 07/17/18 07:30 Hct 40.0 % (35.0-51.0) 07/17/18 07:30 MCV 100.4 fl (80.0-94.0) H 07/17/18 07:30 MCH 32.5 pg (27.0-31.0) H 07/17/18 07:30 MCHC 32.3 g/dL (33.0-37.0) L 07/17/18 07:30 RDW 15.0 % (11.5-14.5) H 07/17/18 07:30 Plt Count 154 K/uL (130-400) 07/17/18 07:30 MPV 9.3 fl (7.2-11.7) 07/16/18 07:50 Neut % (Auto) 80.8 % (50.0-75.0) H 07/16/18 07:50 Lymph % (Auto) 9.1 % (20.0-40.0) L 07/16/18 07:50 [place] % (Auto) 6.7 % (0.0-10.0) 07/16/18 07:50 Eos % (Auto) 2.3 % (0.0-4.0) 07/16/18 07:50 Baso % (Auto) 1.1 % (0.0-2.0) 07/16/18 07:50 Neut # (Auto) 15.0 K/uL (1.8-7.0) H 07/16/18 07:50 Lymph # (Auto) 1.7 K/uL (1.0-4.3) 07/16/18 07:50 Hamilton # (Auto) 1.2 K/uL (0.0-0.8) H 07/16/18 07:50 Eos # (Auto) 0.4 K/uL (0.0-0.7) 07/16/18 07:50 Baso # (Auto) 0.2 K/uL (0.0-0.2) 07/16/18 07:50 Total Counted Cancelled 07/14/18 16:18 Neutrophils % (Manual) 76 % (42-75) H 07/16/18 07:50 Band Neutrophils % 3 % (0-2) H 07/16/18 07:50 Lymphocytes % (Manual) 12 % (20-50) L 07/16/18 07:50 Reactive Lymphs % 1 % (0-0) H 07/02/18 22:30 Monocytes % (Manual) 5 % (0-10) 07/16/18 07:50 Eosinophils % (Manual) 4 % (0-7) 07/16/18 07:50 Basophils % (Manual) 1 % (0-2) 07/10/18 05:45 Metamyelocytes % 1 % (0-0) H 07/10/18 05:45 Myelocytes % Cancelled 07/14/18 16:18 Promyelocytes % Cancelled 07/14/18 16:18 Blast Cells % Cancelled 07/14/18 16:18 Plasma Cell % (Manual) Cancelled 07/14/18 16:18 Nucleated RBC % Cancelled 07/14/18 16:18 Hypersegmented Polys Cancelled 07/14/18 16:18 Smudge Cells Cancelled 07/14/18 16:18 Toxic Granulation Present 07/16/18 07:50 Dohle Bodies Cancelled 07/14/18 16:18 Luis Rods Cancelled 07/14/18 16:18 Platelet Estimate Normal (NORMAL) 07/16/18 07:50 Plt Clumps, EDTA Cancelled 07/14/18 16:18 Large Platelets Cancelled 07/14/18 16:18 Giant Platelets Cancelled 07/14/18 16:18 RBC Morphology Normal (NORMAL) 07/06/18 05:18 Polychromasia Cancelled 07/14/18 16:18 Hypochromasia (manual) Slight 07/02/18 22:30 Poikilocytosis (manual Cancelled 07/14/18 16:18 Basophilic Stippling Cancelled 07/14/18 16:18 Anisocytosis (manual) Slight 07/16/18 07:50 Microcytosis (manual) Cancelled 07/14/18 16:18 Macrocytosis (manual) Slight 07/16/18 07:50 Spherocytes Cancelled 07/14/18 16:18 Sickle Cells Cancelled 07/14/18 16:18 Target Cells Cancelled 07/14/18 16:18 Tear Drop Cells Cancelled 07/14/18 16:18 Ovalocytes Cancelled 07/14/18 16:18 Stomatocytes Cancelled 07/14/18 16:18 Helmet Cells Cancelled 07/14/18 16:18 Ureña-Savage Bodies Cancelled 07/14/18 16:18 Huseyin Cells Cancelled 07/14/18 16:18 Acanthocytes (Spur) Cancelled 07/14/18 16:18 Rouleaux Cancelled 07/14/18 16:18 Schistocytes Cancelled 07/14/18 16:18 PT 21.5 Seconds (9.8-13.1) H 07/13/18 05:10 INR 1.9 07/13/18 05:10 APTT 33.1 Seconds (25.6-37.1) 07/02/18 22:30 pCO2 32 mm/Hg (35-45) L 07/06/18 19:13 pO2 58 mm/Hg (80-100) L 07/06/18 19:13 HCO3 28.2 mmol/L (21-28) H 07/06/18 19:13 ABG pH 7.53 (7.35-7.45) H 07/06/18 19:13 ABG Total CO2 27.7 mmol/L (22-28) 07/06/18 19:13 ABG O2 Saturation 95.1 % (95-98) 07/06/18 19:13 ABG Base Excess 4.4 mmol/L (-2.0-3.0) H 07/06/18 19:13 Lalo Test Yes 07/06/18 19:13 ABG Potassium 3.6 mmol/L (3.6-5.2) 07/06/18 19:13 VBG pH 7.50 (7.32-7.43) H 07/03/18 02:12 VBG pCO2 38 mmHg (40-60) L 07/03/18 02:12 VBG HCO3 29.3 mmol/L 07/03/18 02:12 VBG Total CO2 30.8 mmol/L (22-28) H 07/03/18 02:12 VBG O2 Sat (Calc) 87.2 % (40-65) H 07/03/18 02:12 VBG Base Excess 6.1 mmol/L (0.0-2.0) H 07/03/18 02:12 VBG Potassium 2.8 mmol/L (3.6-5.2) L 07/03/18 02:12 A-a O2 Difference 52.0 mm/Hg 07/06/18 19:13 Sodium 134.0 mmol/L (132-148) 07/06/18 19:13 Chloride 104.0 mmol/L (98-107) 07/06/18 19:13 Glucose 145 mg/dL (75-110) H 07/06/18 19:13 Lactate 2.6 mmol/L (0.7-2.1) H 07/06/18 19:13 FiO2 21.0 % 07/06/18 19:13 Crit Value Called To lynnette Miller md 07/03/18 02:12 Crit Value Called By Jaylan fenton 07/03/18 02:12 Crit Value Read Back Y 07/03/18 02:12 Blood Gas Notified Time 224 07/03/18 02:12 Sodium 139 mmol/l (132-148) 07/17/18 07:30 Potassium 4.5 MMOL/L (3.6-5.0) 07/17/18 07:30 Chloride 110 mmol/L (98-107) H 07/17/18 07:30 Carbon Dioxide 24 mmol/L (22-30) 07/17/18 07:30 Anion Gap 10 (10-20) 07/17/18 07:30 BUN 14 mg/dl (9-20) 07/17/18 07:30 Creatinine 0.8 mg/dl (0.8-1.5) 07/17/18 07:30 Est GFR ( Amer) > 60 07/17/18 07:30 Est GFR (Non-Af Amer) > 60 07/17/18 07:30 POC Glucose (mg/dL) 126 mg/dL (65-110) H 07/15/18 21:38 Random Glucose 107 mg/dL (75-110) 07/17/18 07:30 Lactic Acid 1.4 MMOL/L (0.7-2.1) 07/04/18 10:11 Calcium 8.2 mg/dL (8.4-10.2) L 07/17/18 07:30 Phosphorus 2.4 mg/dl (2.5-4.5) L 07/17/18 07:30 Magnesium 1.5 MG/DL (1.6-2.3) L 07/17/18 07:30 Total Bilirubin 5.2 mg/dl (0.2-1.3) H 07/17/18 07:30 Direct Bilirubin 4.6 mg/ml (0.0-0.4) H 07/02/18 22:30 AST 224 U/L (17-59) H 07/17/18 07:30 ALT 59 U/L (21-72) 07/17/18 07:30 Alkaline Phosphatase 264 U/L (38-126) H 07/17/18 07:30 Ammonia 16 umo/L (16-60) 07/15/18 15:00 Total Creatine Kinase 99 U/L (55-170) 07/03/18 08:45 CK-MB (Mass) 1.56 ng/mL (0.0-3.38) 07/02/18 22:30 Troponin I 0.0460 ng/mL (0.00-0.120) 07/02/18 22:30 Total Protein 6.6 G/DL (6.3-8.2) 07/17/18 07:30 Albumin 2.3 g/dL (3.5-5.0) L 07/17/18 07:30 Globulin 4.3 gm/dL (2.2-3.9) H 07/17/18 07:30 Albumin/Globulin Ratio 0.5 (1.0-2.1) L 07/17/18 07:30 Lipase 423 U/L (23-300) H 07/02/18 22:30 Alpha Fetoprotein 1.8 IU/mL (0.0-7.22) 07/15/18 07:45 Vitamin B12 > 1000 pg/mL (239-931) H 07/04/18 04:20 Folate 9.9 ng/mL 07/06/18 05:18 Procalcitonin 0.99 NG/ML (0.19-0.49) H 07/09/18 08:35 TSH 3rd Generation 2.09 mIU/ML (0.46-4.68) 07/06/18 05:18 Prolactin 25.2 ng/mL (3.7-17.9) H 07/03/18 08:45 Arterial Blood Potassium 3.6 mmol/L (3.6-5.2) 07/06/18 19:13 Venous Blood Potassium 2.8 mmol/L (3.6-5.2) L 07/03/18 02:12 Urine Color Maria Antonia (YELLOW) 07/03/18 17:39 Urine Clarity Cloudy (Clear) 07/03/18 17:39 Urine pH 5.0 (5.0-8.0) 07/03/18 17:39 Ur Specific [place] 1.023 (1.003-1.030) 07/03/18 17:39 Urine Protein 30 mg/dL (NEGATIVE) 07/03/18 17:39 Urine Glucose (UA) Neg mg/dL (Normal) 07/03/18 17:39 Urine Ketones Negative mg/dL (NEGATIVE) 07/03/18 17:39 Urine Blood Negative (NEGATIVE) 07/03/18 17:39 Urine Nitrate Negative (NEGATIVE) 07/03/18 17:39 Urine Bilirubin Small (NEGATIVE) 07/03/18 17:39 Urine Urobilinogen 4.0 mg/dL (0.2-1.0) 07/03/18 17:39 Ur Leukocyte Esterase Neg Param/uL (Negative) 07/03/18 17:39 Urine RBC (Auto) 3 /hpf (0-3) 07/03/18 17:39 Urine Microscopic WBC 4 /hpf (0-5) 07/03/18 17:39 Ur Squamous Epith Cells < 1 /hpf (0-5) 07/03/18 17:39 Hyaline Casts 0-2 /hpf (0-2) 07/03/18 17:39 Fluid Source Peritoneal/ascites 07/10/18 12:50 Fluid Appearance Clear (CLEAR) 07/10/18 12:50 Fluid WBC 29.0 /mm3 (0.0-300.0) 07/10/18 12:50 Fluid RBC 150.0 /mm3 (0.0-0.0) H 07/10/18 12:50 Fluid Tot Cell Count TEST NOT PERFORMED 07/10/18 12:50 Fluid Neutrophils 29.0 % (0-0) H 07/10/18 12:50 Fluid Lymphocytes 11.0 % (0-0) H 07/10/18 12:50 Fld Monocyte/Macrophag 10 % (0-0) H 07/10/18 12:50 Fluid Glucose 93 mg/dL (NONE ESTABLISHED) 07/10/18 12:50 Fluid Total Protein < 2.0 g/dL (NONE ESTABLISHED) 07/10/18 12:50 Fluid Albumin 0.2 g/dL 07/10/18 12:50 Fluid Comment Light yellow 07/10/18 12:50 Urine Opiates Screen Negative (NEGATIVE) 07/03/18 17:39 Urine Methadone Screen Negative (NEGATIVE) 07/03/18 17:39 Ur Barbiturates Screen Negative (NEGATIVE) 07/03/18 17:39 Ur Phencyclidine Scrn Negative (NEGATIVE) 07/03/18 17:39 Ur Amphetamines Screen Negative (NEGATIVE) 07/03/18 17:39 U Benzodiazepines Scrn Negative (NEGATIVE) 07/03/18 17:39 U Oth Cocaine Metabols Negative (NEGATIVE) 07/03/18 17:39 U Cannabinoids Screen Negative (NEGATIVE) 07/03/18 17:39 Alcohol, Quantitative < 10 mg/dl (0-10) 07/02/18 22:30 RPR Nonreactive (NONREACTIVE) 07/04/18 04:20 C. difficile Tox B Gene Not detected (Not Detected) 07/09/18 08:24 C. difficile Ag & Toxin Positive antigen (NEGATIVE) 07/09/18 Unknown Hepatitis A IgM Ab Negative (NEGATIVE) 07/09/18 19:35 Hep Bs Antigen Negative (NEGATIVE) 07/09/18 19:35 Hep B Core IgM Ab Negative (NEGATIVE) 07/09/18 19:35 Hepatitis C Antibody Negative (NEGATIVE) 07/09/18 19:35 HIV-1 Ab Rapid Screen Non reactive (NON REAC) 07/09/18 08:35 Blood Type O POSITIVE 07/10/18 04:00 Antibody Screen Negative 07/10/18 04:00 BBK History Checked Patient has bt 07/10/18 04:00 - Hospital Course Hospital Course: This is 68 y/o male admitted for evaluation and treatment of AMS, Encephalopathy, Alcohol withdrawal, dehydration, decompensated Alcoholic Cirrhosis, elevated transaminases, ALLISON and leukocytosis. After admission, patient was started on CIWA protocol and empiric Zosyn and Vanco. patient was found to have abdominal distension, GI Dr. Gomez consulted, Abd US showed fatty liver and generalized ascites, KUB showed no free air. Patient is S/p abdominal parasenthesis 07/10, 2L fluids was taken out, No SBP picture. GI recommended elective TIPS and EGD once patient is stable. Patient was found to have C.diff, ID was consulted, patient was started on PO Vanco for 10 days. HemOnc was consulted after Abdominal CT: 07/13/18: Suspected HCC, infiltrating right and left lobe of the liver/ Hepatic cirrhosis, As per HemOnc and GI: patient is not a candidate for Chemo and Hospice recommended. Patient's family refused Hospice and agrees to the discharge plan to SubAcute Rehab. MEDICATIONS: Rifaximin, Lactulose, Nadolol, Folate, Thiamine and C/w Vanco PO for next 3 days Hepatocellular Carcinoma, poor prognosis - Abdominal CT: 07/13/18: Suspected HCC, infiltrating right and left lobe of the liver/ Hepatic cirrhosis - Consult HemOnc, Dr. Sofia Harmon, recommendations appreciated - As per HemOnc and GI: not a candidate for Chemo, Possible Hospice, family is aware Alter Mental status/Multifactorial/Metabolic Encephalopathy related to alcohol abuse/Withdrawal - Acute - GI and ID recommendations appreciated, will follow further recommendations - C/w Multi-vitamins, Lactulose, and electrolytes replacement as needed - C/w Vanco PO Day 8/10 for C diff , S/p Zosyn 11days and Vanco 7days - C/w Rifaximin 550 BID with lactulose and Nadolol - Elective EGD/TIPS - EEG: Consistent with chronic alcoholism Abdominal Distention/Non-tender/Decompensated Alcoholic Cirrhosis/Acute Alc oholic hepatitis - Acute - GI and ID recommendations appreciated, will follow further recommendations - S/p abdominal parasenthesis 07/10, 2L fluids was taken out, No SBP picture - C/w Rifaximin 550 BID with lactulose and Nadolol - C/w Vanco PO Day /10 for C diff , S/p Zosyn 11days and Vanco 7days C.Diff Antigen positive, improved - Vanco 250mg PO Day #8 Alcohol Withdrawal, Tachycardia possibly secondary to alcohol withdrawal - C/w Folic acid, Thiamine B/L pleural effusions - CT chest and abd u/s reviewed: B/L pleural effusions and moderate ascites. Hepatosteatosis. GB sludge Electrolytes imbalance: Hypokalemia/ Hypophosphatemia/ Hypomagnesemia/ Hypocalcemia - Possibly due to chronic alcohol use, replete as needed Elevated AST, AST:ALT ratio >2:1 - Improving - Possible due to alcohol use Discharge Exam - Head Exam Head Exam: NORMAL INSPECTION - Eye Exam Eye Exam: Normal appearance - ENT Exam ENT Exam: Mucous Membranes Moist - Neck Exam Neck exam: Normal Inspection - Respiratory Exam Respiratory Exam: Clear to PA & Lateral, NORMAL BREATHING PATTERN. absent: Accessory Muscle Use, Chest Wall Tenderness, Decreased Breath Sounds, Respiratory Distress - Cardiovascular Exam Cardiovascular Exam: Tachycardia, REGULAR RHYTHM, +S1, +S2 - GI/Abdominal Exam GI & Abdominal Exam: Distended, Firm, Normal Bowel Sounds. absent: Guarding, Re bound, Rigid, Tenderness - Extremities Exam Extremities exam: normal capillary refill, pedal pulses present - Back Exam Back exam: absent: CVA tenderness (L), CVA tenderness (R) - Neurological Exam Neurological exam: Alert, CN II-XII Intact, Oriented x3 - Psychiatric Exam Psychiatric exam: Normal Affect - Skin Skin Exam: Normal Color Discharge Plan - Discharge Medications Prescriptions: Folic Acid 1 mg PO DAILY #30 tab Lactulose [Enulose] 10 gm PO DAILY #30 udc Nadolol [Corgard] 20 mg PO DAILY #30 tab rifAXIMin [Xifaxan] 550 mg PO BID #30 tab Thiamine [Vitamin B1 Tab] 100 mg PO DAILY #30 tab Vancomycin [Vancocin (Oral/Rectal USE)] 250 mg PO Q6 3 Days soln - Follow Up Plan Condition: FAIR Disposition: REHAB FACILITY/REHAB UNIT Instructions: Alcohol Withdrawal, Alcohol Abuse and Alcoholism (DC) Additional Instructions: - FOllow up PMD in 1 week after discharge - C/w Medications - C/w C.diff medication for 3 more days
--- NOTE | 2018-07-17 16:25 | CP.PCM.PCO ---
Assessment/Plan - Assessment and Plan (Free Text) Assessment: PICC Removal Note: PICC Removal: - After the procedure was explained to the patient/Family, the patient was placed supine on the bed. The dressing was removed from the PICC line. The area was prepped in sterile fashion. No sutures were noted. Patient was instructed to hold his breath on inhalation and bearing down, the PICC line was removed. Pressure was held at the site. Hemostasis was achieved. A pressure dressing was applied. Clinical Information: - PICC no longer needed Comparison: - None Findings/Complications: - No immediate complications Impression: - Picc Removal, No immediate complication, procedure well tolerated Norman Spencer, PGY-II
[2018-07-17 20:04] VITALS: BP 110/77; PULSE 101; RESP 18; TEMP 98; O2SAT 99
--- NOTE | 2018-07-21 12:11 | US ---
Date of Procedure: 07/10/2018 PROCEDURE: Ultrasound-guided paracentesis, CPT 70180 Medications: 7 cc 1% Lidocaine HISTORY: Ascites, abdominal pain, TECHNIQUE: Following informed consent , the patient was placed supine on the stretcher and the site was marked. A limited abdominal ultrasound was performed that showed a moderate amount of intra-abdominal fluid. Procedural time out was called and the Pt's abdomen was marked and prepped and draped in the usual sterile fashion. Ultrasound-guided large volume paracentesis performed. A total of 2 liters of straw colored fluid was removed without complication. IMPRESSION: Ultrasound-guided paracentesis.
== END 2018-07-17 21:20 | DRG 57 ==
LOC: H.ER 21:16 → H.ERHOLD 07-03 01:09 → H.TEL 07-03 10:07
PROVIDERS: ADMIT Internal Medicine; ATTEND Internal Medicine
PROC: 3E02340 Introduction of Influenza Vaccine into Muscle, Percutaneous Approach (ICD-10-PCS; 2018-07-03)
PROC: 3E0234Z Introduction of Serum, Toxoid and Vaccine into Muscle, Percutaneous Approach (ICD-10-PCS; 2018-07-03)
PROC: 02HV33Z Insertion of Infusion Device into Superior Vena Cava, Percutaneous Approach (ICD-10-PCS; principal; 2018-07-07)
PROC: 30233K1 Transfusion of Nonautologous Frozen Plasma into Peripheral Vein, Percutaneous Approach (ICD-10-PCS; 2018-07-10)
PROC: 0W9G3ZZ Drainage of Peritoneal Cavity, Percutaneous Approach (ICD-10-PCS; 2018-07-10)
PROC: 02PYX3Z Removal of Infusion Device from Great Vessel, External Approach (ICD-10-PCS; 2018-07-17)
DX: G31.2 Degeneration of nervous system due to alcohol (principal); F10.239 Alcohol dependence with withdrawal, unspecified; N17.9 Acute kidney failure, unspecified; A04.72 Enterocolitis due to Clostridium difficile, not specified as recurrent; E87.2 Acidosis; J91.8 Pleural effusion in other conditions classified elsewhere; C22.0 Liver cell carcinoma; K70.40 Alcoholic hepatic failure without coma; E83.42 Hypomagnesemia; E87.6 Hypokalemia; K70.31 Alcoholic cirrhosis of liver with ascites; K70.11 Alcoholic hepatitis with ascites; E86.0 Dehydration; R56.9 Unspecified convulsions; Z87.891 Personal history of nicotine dependence; E83.51 Hypocalcemia; E83.39 Other disorders of phosphorus metabolism; Y90.0 Blood alcohol level of less than 20 mg/100 ml; K76.0 Fatty (change of) liver, not elsewhere classified; Z23 Encounter for immunization; G89.29 Other chronic pain

== ENCOUNTER 2018-07-20 03:33 | Inpatient (IN) | payer MEDICARE ==
--- NOTE | 2018-07-20 03:53 | ED PDOC ---
HPI: Abdomen Time Seen by Provider: 07/20/18 03:51 Chief Complaint (Nursing): Abdominal Pain Chief Complaint (Provider): abdominal pain History Per: Patient Additional Complaint(s): 68-year-old male with history of alcoholic cirrhosis presents with abdominal distention and an elevated white blood cell count. Patient was discharged from this hospital on July 17 and presents today with worsening symptoms. As per group home notes patient's white blood cell count from yesterday was 19.5 and increased to 20.2 today. PMD: Dr. Bill Past Medical History Reviewed: Historical Data, Nursing Documentation, Vital Signs Vital Signs: Last Vital Signs Temp 97.7 F 07/20/18 03:38 Pulse 91 H 07/20/18 03:38 Resp 18 07/20/18 03:38 BP 112/74 07/20/18 03:38 Pulse Ox 96 07/20/18 03:38 - Medical History PMH: HTN, Chronic Kidney Disease Other PMH: cirrhosis - Family History Family History: States: No Known Family Hx - Living Arrangements Living Arrangements: [facility] - Social History Current smoker - smoking cessation education provided: No Alcohol: Other (h/o abuse) Drugs: Denies - Home Medications Home Medications: Ambulatory Orders Medication Instructions Recorded Folic Acid 1 mg PO DAILY #30 tab 07/17/18 Lactulose [Enulose] 10 gm PO DAILY #30 udc 07/17/18 Nadolol [Corgard] 20 mg PO DAILY #30 tab 07/17/18 Thiamine [Vitamin B1 Tab] 100 mg PO DAILY #30 tab 07/17/18 Vancomycin [Vancocin (Oral/Rectal 250 mg PO Q6 3 Days soln 07/17/18 USE)] rifAXIMin [Xifaxan] 550 mg PO BID #30 tab 07/17/18 Acetaminophen [Tylenol 325mg tab] 650 mg PO Q4 PRN 07/20/18 Acetaminophen [Tylenol] 650 mg PO Q4 PRN 07/20/18 - Allergies Allergies/Adverse Reactions: Allergies Allergy/AdvReac Type Severity Reaction Status Date / Time No Known Allergies Allergy Verified 07/02/18 21:23 Review of Systems ROS Statement: Except As Marked, All Systems Reviewed And Found Negative Gastrointestinal: Positive for: Abdominal Pain (and distention) Physical Exam - Reviewed Nursing Documentation Reviewed: Yes Vital Signs Reviewed: Yes - Physical Exam Appears: Positive for: Well, Non-toxic, No Acute Distress Skin: Positive for: Normal Color. Negative for: Rash Eye Exam: Positive for: Scleral icterus Cardiovascular/Chest: Positive for: Regular Rate, Rhythm Respiratory: Positive for: Decreased Breath Sounds Gastrointestinal/Abdominal: Positive for: Tenderness, Distended, Asicites. Negative for: Soft Back: Negative for: L CVA Tenderness, R CVA Tenderness Extremity: Positive for: Pedal Edema (3+ to b/l lower extremities) Neurologic/Psych: Positive for: Alert, Other (Patient is not oriented to person, place and time) - ECG O2 Sat by Pulse Oximetry: 96 Pulse Ox Interpretation: Normal Medical Decision Making Medical Decision Makin-year-old male with abdominal distention Case was discussed in detail with Dr. Meza. Will initiate septic workup and start empiric IV antibiotics given recent elevated CBC and clinical presentation. Plan: EKG CXR Blood cultures CBC CMP Ammonia VBG with lactate IV zosyn and vanco UA and culture Disposition - Clinical Impression Clinical Impression: Abdominal distention - Patient ED Disposition Is Patient to be Admitted: Transfer of Care - Disposition Disposition: Transfer of Care Disposition Time: 05:00 Condition: GUARDED Forms: [email or web address] (Vietnamese) Patient Signed Over To: Rocío Meza Handoff Comments: Signed out pending diagnostic testing results and final disposition
[2018-07-20] MEDS ORDERED: Piperacillin/Tazobact 3.375 GM in Sodium Chloride 0.9% 100 ML IVPB STA (04:34)
[2018-07-20] MEDS ORDERED: Piperacillin/Tazobact 3.375 gm Inj IVPB ONE (05:07)
--- NOTE | 2018-07-20 05:09 | ED PDOC ---
- Laboratory Results Result Diagrams: 07/20/18 05:00 18 05:00 - ECG O2 Sat by Pulse Oximetry: 96 (RA) Pulse Ox Interpretation: Normal Medical Decision Making Medical Decision Makin:00 --Care will be continued pending ER workup and final disposition. 05:53 --Patient will be admitted as an inpatient due to worsening hepatitis ascites. Scribe Attestation: Documented by Eliana Holman acting as a scribe for Rocío Meza MD Provider Scribe Attestation: All medical record entries made by the Scribe were at my direction and personally dictated by me. I have reviewed the chart and agree that the record accurately reflects my personal performance of the history, physical exam, medical decision making, and the department course for this patient. I have also personally directed, reviewed, and agree with the discharge instructions and disposition. Disposition - Clinical Impression Clinical Impression: Abdominal distention - POA Present On Arrival: None - Disposition Disposition: Admitted as In-Patient Disposition Time: 05:53 Condition: GUARDED Forms: [employer] (Tajik)
[2018-07-20 05:25] LABS: ALB/GLOB RATIO 0.5 (1.0-2.1); ALBUMIN 2.7 g/dL (3.5-5.0); ALT/SGPT 64 U/L (21-72); AST/SGOT 202 U/L (17-59); BLOOD UREA NITROGEN 16 mg/dl (9-20); CALCIUM 8.6 mg/dL (8.4-10.2); GFR NON-AFRICAN AMERICAN > 60
[2018-07-20 05:28] LABS: VENOUS BLOOD GAS BASE EXCESS -1.3 mmol/L (0.0-2.0); VENOUS BLOOD GAS PCO2 40 mmHg (40-60); VENOUS BLOOD GAS PO2 30 mm/Hg (30-55); VENOUS BLOOD PH 7.38 (7.32-7.43)
[2018-07-20 05:28] LABS: BASO # 0.2 K/uL (0.0-0.2); BASO % 0.9 % (0.0-2.0); EOS # 0.7 K/uL (0.0-0.7); EOS % 2.7 % (0.0-4.0); HEMOGLOBIN 14.6 g/dL (12.0-18.0); LYMPH # 2.4 K/uL (1.0-4.3); LYMPH % 9.4 % (20.0-40.0); MEAN CELL VOLUME 101.4 fl (80.0-94.0); MEAN CORPUSCULAR HEMOGLOBIN 32.5 pg (27.0-31.0); MEAN CORPUSCULAR HGB CONC 32.1 g/dL (33.0-37.0); MEAN PLATELET VOLUME 9.5 fl (7.2-11.7); MONO # 1.7 K/uL (0.0-0.8); MONO % 6.9 % (0.0-10.0); NEUT # 20.1 K/uL (1.8-7.0); NEUT % 80.1 % (50.0-75.0); PLATELET COUNT 162 K/uL (130-400); RBC 4.48 Mil/uL (4.40-5.90); RED CELL DISTRIBUTION WIDTH 16.6 % (11.5-14.5); WHITE BLOOD COUNT 25.1 K/uL (4.8-10.8)
[2018-07-20 05:31] LABS: SQUAMOUS EPITHIAL < 1 /hpf (0-5); URINE BACTERIA RARE (<OCC); URINE BILIRUBIN SMALL (NEGATIVE); URINE BLOOD NEGATIVE (NEGATIVE); URINE CLARITY SLIGHTY-CLOUDY (Clear); URINE COLOR AMBER (YELLOW); URINE GLUCOSE (UA) NEG (Normal); URINE LEUKOCYTE ESTERASE NEG Leu/uL (Negative); URINE PROTEIN 30 mg/dL (NEGATIVE)
[2018-07-20 07:16] LABS: ANISOCYTOSIS MODERATE; BANDS 2 % (0-2); LYMPHOCYTE 11 % (20-50); MONOCYTE 4 % (0-10); NEUTROPHIL 83 % (42-75); PLATELET ESTIMATE NORMAL (NORMAL); TOTAL CELLS COUNTED 100
[2018-07-20 07:17] LABS: HYPOCHROMIC SLIGHT; ROULEAUX FORMATION MODERATE
[2018-07-20 08:34] LABS: VENOUS BLOOD GAS BASE EXCESS -0.8 mmol/L (0.0-2.0); VENOUS BLOOD GAS PCO2 37 mmHg (40-60); VENOUS BLOOD GAS PO2 40 mm/Hg (30-55); VENOUS BLOOD PH 7.41 (7.32-7.43)
--- NOTE | 2018-07-20 09:49 | CARD ---
APPROVED REPORT Date of service: 07/20/2018 EKG Measurement Heart [id number] [id number] <Conclusion> Normal sinus rhythm Low voltage QRS Nonspecific ST changes Abnormal ECG
--- NOTE | 2018-07-20 10:17 | RAD ---
Date of service: 07/20/2018 HISTORY: clearance COMPARISON: 07/08/2018 FINDINGS: LUNGS: There are low lung volumes. The lungs are well inflated and clear. PLEURA: No right pleural effusion or pneumothorax. The left costophrenic angle is obscured by lead. CARDIOVASCULAR: The heart is normal in size. No aortic atherosclerotic calcification present. OSSEOUS STRUCTURES: Within normal limits for the patient's age. VISUALIZED UPPER ABDOMEN: Normal. OTHER FINDINGS: None. IMPRESSION: No acute findings.
--- NOTE | 2018-07-20 16:35 | CP.PCM.HP ---
History of Present Illness - History of Present Illness History of Present Illness: 68 y/o M. Dx in last admission of 07/03/18 with Hepatocellular Ca, Metabolic Encephalopathy. PMHx. Cirrhosis (Chronic alcoholism), CKD, HTN, brought to ER [facility] [place], via EMS from [facility], to be evaluated for increased WBC (20.2), associated to worsening of hepatic ascite with some draining fluid, redness on R-L flanks and no improvement of condition. Pt was admitted to [facility] on 07/03/18 to 07/17/18 due to same medical condition. Abdomen CT on 07/13/18: Suspected hepatocellular malignancy, infiltrating R and L lobe of the liver/Hepatic cirrhosis. As per HemOnc and GI: Dx of Hepatocellular Ca, not a candidate for chemo, possible hospice (poor prognosis), Pt family's refused hospice and agree to be discharged to [facility]. Worsening symptoms: Current C Diff in prison, maintained in isolation. AMS. Aggravated factor: Poor historian. No fever, chills, vomiting, diarrhea, CP, palpitations, syncope, cough. EKG: Normal sinus rhythm, Low voltage QRS. CXR: No acute findings. Present on Admission - Present on Admission Any Indicators Present on Admission: No Review of Systems - Review of Systems Systems not reviewed;Unavailable: Acuity of Condition, Altered Mental Status Past Patient History - Past Medical History & Family History Past Medical History?: Yes Pertinent Family History: As per other admissions: No family Hx of DM, HTN, Colon Ca. Mother: Uterine Ca. - Past Social History Smoking Status: Former Smoker Alcohol: Other (Heavy drinker in the past, as of Jul 2018 avg 1 pt Vodka/week.) Drugs: Denies Home Situation {Lives}: [facility] - CARDIAC Hx Cardiac Disorders: Yes Hx Hypertension: Yes - PULMONARY Hx Respiratory Disorders: No - NEUROLOGICAL Hx Neurological Disorder: Yes (AMS) - HEENT Hx HEENT Problems: No - RENAL Hx Chronic Kidney Disease: Yes Hx Renal Failure: Yes - ENDOCRINE/METABOLIC Hx Endocrine Disorders: No - HEMATOLOGICAL/ONCOLOGICAL Hx Blood Disorders: No - INTEGUMENTARY Hx Dermatological Problems: No - MUSCULOSKELETAL/RHEUMATOLOGICAL Hx Musculoskeletal Disorders: Yes Hx Falls: Yes - GASTROINTESTINAL Hx Gastrointestinal Disorders: Yes (Cirrhosis, hepatic ascites.) Hx Clostridium Difficile: Yes - GENITOURINARY/GYNECOLOGICAL Hx Genitourinary Disorders: No - PSYCHIATRIC Hx Psychophysiologic Disorder: No Hx Substance Use: No - SURGICAL HISTORY Hx Surgeries: Yes Hx Herniorrhaphy: Yes Hx Orthopedic Surgery: Yes (Right shoulder surgery) - ANESTHESIA Hx Anesthesia: Yes Hx Anesthesia Reactions: No Hx Malignant Hyperthermia: No Meds Allergies/Adverse Reactions: Allergies Allergy/AdvReac Type Severity Reaction Status Date / Time No Known Allergies Allergy Verified 07/02/18 21:23 Physical Exam - Constitutional Appears: No Acute Distress, Chronically Ill - Head Exam Head Exam: NORMAL INSPECTION - Eye Exam Eye Exam: Scleral icterus - ENT Exam ENT Exam: Normal Exam - Neck Exam Neck exam: Positive for: Normal Inspection - Respiratory Exam Respiratory Exam: Decreased Breath Sounds (at bases) - Cardiovascular Exam Cardiovascular Exam: REGULAR RHYTHM - GI/Abdominal Exam GI & Abdominal Exam: Distended, Firm, Hypoactive Bowel Sounds - Extremities Exam Additional comments: 3+ non pitting edema b/l ankles. Ecchymosis b/l arms. - Back Exam Additional comments: Redness R-L flank - Neurological Exam Additional comments: Awake, Alert x1, confused, disoriented, weakness L/E> U/E. - Psychiatric Exam Additional comments: Calm - Skin Skin Exam: Warm (Feet cold to touch) Results - Vital Signs Recent Vital Signs: Last Vital Signs Temp 98.0 F 07/20/18 16:05 Pulse 100 H 07/20/18 16:05 Resp 16 07/20/18 16:05 BP 118/79 07/20/18 16:05 Pulse Ox 97 07/20/18 16:05 reviewed Jaskaran - Labs Result Diagrams: 07/21/18 04:20 07/21/18 04:20 Labs: Laboratory Results - last 24 hr 07/20/18 07/20/18 07/20/18 05:00 05:00 05:00 WBC 25.1 H RBC 4.48 Hgb 14.6 Hct 45.4 MCV 101.4 H MCH 32.5 H MCHC 32.1 L RDW 16.6 H Plt Count 162 MPV 9.5 Neut % (Auto) 80.1 H Lymph % (Auto) 9.4 L Allen % (Auto) 6.9 Eos % (Auto) 2.7 Baso % (Auto) 0.9 Neut # (Auto) 20.1 H Lymph # (Auto) 2.4 Allen # (Auto) 1.7 H Eos # (Auto) 0.7 Baso # (Auto) 0.2 Neutrophils % (Manual) 83 H Band Neutrophils % 2 Lymphocytes % (Manual) 11 L Monocytes % (Manual) 4 Platelet Estimate Normal Hypochromasia (manual) Slight Anisocytosis (manual) Moderate Rouleaux Moderate pO2 VBG pH VBG pCO2 VBG HCO3 VBG Total CO2 VBG O2 Sat (Calc) VBG Base Excess VBG Potassium Glucose Lactate FiO2 Sodium 138 Potassium 4.8 Chloride 108 H Carbon Dioxide 23 Anion Gap 12 BUN 16 Creatinine 1.0 Est GFR ( Amer) > 60 Est GFR (Non-Af Amer) > 60 Random Glucose 99 Calcium 8.6 Phosphorus 3.0 Magnesium 1.6 Total Bilirubin 6.4 H AST 202 H ALT 64 Alkaline Phosphatase 374 H D Ammonia 26 D Total Protein 7.8 Albumin 2.7 L Globulin 5.1 H Albumin/Globulin Ratio 0.5 L Venous Blood Potassium Urine Color Urine Clarity Urine pH Ur Specific [place] Urine Protein Urine Glucose (UA) Urine Ketones Urine Blood Urine Nitrate Urine Bilirubin Urine Urobilinogen Ur Leukocyte Esterase Urine RBC (Auto) Urine Microscopic WBC Ur Squamous Epith Cells Urine Bacteria Hyaline Casts 07/20/18 07/20/18 07/20/18 05:15 05:20 08:17 WBC RBC Hgb Hct MCV MCH MCHC RDW Plt Count MPV Neut % (Auto) Lymph % (Auto) Allen % (Auto) Eos % (Auto) Baso % (Auto) Neut # (Auto) Lymph # (Auto) Allen # (Auto) Eos # (Auto) Baso # (Auto) Neutrophils % (Manual) Band Neutrophils % Lymphocytes % (Manual) Monocytes % (Manual) Platelet Estimate Hypochromasia (manual) Anisocytosis (manual) Rouleaux pO2 30 40 VBG pH 7.38 7.41 VBG pCO2 40 37 L VBG HCO3 22.8 23.6 VBG Total CO2 24.9 24.6 VBG O2 Sat (Calc) 58.6 80.1 H VBG Base Excess -1.3 L -0.8 L VBG Potassium 4.5 4.3 Glucose 104 101 Lactate 2.3 H 2.2 H FiO2 21.0 21.0 Sodium 136.0 131.0 L Potassium Chloride 105.0 108.0 H Carbon Dioxide Anion Gap BUN Creatinine Est GFR ( Amer) Est GFR (Non-Af Amer) Random Glucose Calcium Phosphorus Magnesium Total Bilirubin AST ALT Alkaline Phosphatase Ammonia Total Protein Albumin Globulin Albumin/Globulin Ratio Venous Blood Potassium 4.5 4.3 Urine Color Maria Antonia Urine Clarity Slighty-cloudy Urine pH 5.0 Ur Specific [place] 1.027 Urine Protein 30 Urine Glucose (UA) Neg Urine Ketones Negative Urine Blood Negative Urine Nitrate Negative Urine Bilirubin Small Urine Urobilinogen 2.0 Ur Leukocyte Esterase Neg Urine RBC (Auto) 3 Urine Microscopic WBC 5 Ur Squamous Epith Cells < 1 Urine Bacteria Rare Hyaline Casts 6-10 H reviewed J.P. - EKG Data EKG comments: reviewed J.P. - Imaging and Cardiology Chest x-ray Status: Report reviewed by me (JVictorianoP.) Assessment & Plan (1) Hepatocellular carcinoma Status: Acute Priority: High (2) Abdominal distention Status: Acute Priority: High (3) Metabolic encephalopathy Status: Acute Priority: High (4) ARF (acute renal failure) Status: Acute Priority: High (5) Alcoholic cirrhosis of liver Status: Acute Priority: High (6) Altered mental status Status: Acute Priority: High - Assessment and Plan (Free Text) Plan: F/U Blood C-S, Urine C-S, continue Vanco, Xifaxan and rest of Tx, PT eval. GI consult. - Date & Time Date: 07/20/18 Time: 10:00
[2018-07-20] MEDS: Vancomycin 500 mg (Oral/Rectal USE) PO SCH ×2 (17:00→21:48)
[2018-07-21] MEDS: Vancomycin 500 mg (Oral/Rectal USE) PO SCH ×4 (04:07→21:24)
[2018-07-21 05:38] LABS: BLOOD UREA NITROGEN 18 mg/dl (9-20); GFR NON-AFRICAN AMERICAN > 60
[2018-07-21 05:43] LABS: HEMOGLOBIN 12.2 g/dL (12.0-18.0); MEAN CELL VOLUME 101.3 fl (80.0-94.0); MEAN CORPUSCULAR HEMOGLOBIN 32.8 pg (27.0-31.0); MEAN CORPUSCULAR HGB CONC 32.4 g/dL (33.0-37.0); RBC 3.73 Mil/uL (4.40-5.90); RED CELL DISTRIBUTION WIDTH 16.3 % (11.5-14.5); WHITE BLOOD COUNT 23.6 K/uL (4.8-10.8)
--- NOTE | 2018-07-21 10:44 | CP.PCM.CON ---
History of Present Illness - History of Present Illness History of Present Illness: Psychiatry consult note; patient unable to engage in interview due to acute lethargy, history obtained from patient's daughter and chart CC: AMS HPI: 68 y/o M. Dx in last admission of 07/03/18 with Hepatocellular Ca, Metabolic Encephalopathy. PMHx. Cirrhosis (Chronic alcoholism), CKD, HTN, brought to ER [facility], [place], via EMS from [facility], to be evaluated for increased WBC (20.2), associated to worsening of hepatic ascites with some draining fluid, redness on R-L flanks and no improvement of condition. Pt was admitted to [facility] on 07/03/18 to 07/17/18 due to same medical condition. Abdomen CT on 07/13/18: Suspected hepatocellular malignancy, infiltrating R and L lobe of the liver/Hepatic cirrhosis. As per HemOnc and GI: Dx of Hepatocellular Ca, not a candidate for chemo, possible hospice (poor prognosis), Pt family's refused hospice and agree to be discharged to [facility]. Patient unable to engage interview due to acute lethargy. Breakfast Host spoke with patient's daughter and staff, who confirmed that the patient has not had any acute behavioral issues. No periods of agitation, aggression, threatening behavior or yelling. PMHx: Hepatocellular Ca, Metabolic Encephalopathy. PMHx. Cirrhosis (Chronic alcoholism), CKD, HTN ALL: NKDA Impression: 68 yo male w/ Hepatocellular Ca, Metabolic Encephalopathy. PMHx. Cirrhosis (Chronic alcoholism), CKD, HTN, does not have any acute behavioral disturbances. -No acute need for psychiatric medications or inpatient psychiatric hospitalization -Patient is psychiatrically clear for discharge Past Patient History - Past Medical History & Family History Past Medical History?: Yes - Past Social History Smoking Status: Former Smoker Alcohol: Other (Heavy drinker in the past, as of Jul 2018 avg 1 pt Vodka/week.) Drugs: Denies Home Situation {Lives}: Jail - CARDIAC Hx Cardiac Disorders: Yes Hx Hypertension: Yes - PULMONARY Hx Respiratory Disorders: No - NEUROLOGICAL Hx Neurological Disorder: Yes (AMS) - HEENT Hx HEENT Problems: No - RENAL Hx Chronic Kidney Disease: Yes Hx Renal Failure: Yes - ENDOCRINE/METABOLIC Hx Endocrine Disorders: No - HEMATOLOGICAL/ONCOLOGICAL Hx Blood Disorders: No - INTEGUMENTARY Hx Dermatological Problems: No - MUSCULOSKELETAL/RHEUMATOLOGICAL Hx Musculoskeletal Disorders: Yes Hx Falls: Yes - GASTROINTESTINAL Hx Gastrointestinal Disorders: Yes (Cirrhosis, hepatic ascites.) Hx Clostridium Difficile: Yes - GENITOURINARY/GYNECOLOGICAL Hx Genitourinary Disorders: No - PSYCHIATRIC Hx Psychophysiologic Disorder: No Hx Substance Use: No - SURGICAL HISTORY Hx Surgeries: Yes Hx Herniorrhaphy: Yes Hx Orthopedic Surgery: Yes (Right shoulder surgery) - ANESTHESIA Hx Anesthesia: Yes Hx Anesthesia Reactions: No Hx Malignant Hyperthermia: No Meds Allergies/Adverse Reactions: Allergies Allergy/AdvReac Type Severity Reaction Status Date / Time No Known Allergies Allergy Verified 07/02/18 21:23 - Medications Medications: Current Medications Folic Acid (Folic Acid) 1 mg PO DAILY [facility] Nadolol (Corgard) 20 mg PO DAILY [facility] Rifaximin (Xifaxan) 550 mg PO BID [facility]; Protocol Last Admin: 07/20/18 17:50 Dose: 550 mg Thiamine HCl (Vitamin B1 Tab) 100 mg PO DAILY [facility] Vancomycin HCl (Vancocin (Oral/Rectal Use)) 250 mg PO Q6 [facility]; Protocol Last Admin: 07/21/18 04:07 Dose: 250 mg Results - Vital Signs Recent Vital Signs: Last Vital Signs Temp 98.1 F 07/21/18 08:00 Pulse 100 H 07/21/18 08:00 Resp 18 07/21/18 08:00 BP 98/59 L 07/21/18 08:00 Pulse Ox 94 L 07/21/18 08:00 - Labs Result Diagrams: 07/21/18 04:20 07/21/18 04:20 Labs: Laboratory Results - last 24 hr 07/21/18 07/21/18 04:20 04:20 WBC 23.6 H RBC 3.73 L Hgb 12.2 D Hct 37.8 MCV 101.3 H MCH 32.8 H MCHC 32.4 L RDW 16.3 H Plt Count 113 L D Sodium 136 Potassium 4.2 Chloride 111 H Carbon Dioxide 21 L Anion Gap 8 L BUN 18 Creatinine 1.0 Est GFR ( Amer) > 60 Est GFR (Non-Af Amer) > 60 Random Glucose 89 Calcium 8.0 L
--- NOTE | 2018-07-21 15:17 | CP.PCM.PN ---
Subjective - Date & Time of Evaluation Date of Evaluation: 07/21/18 - Subjective Subjective: F/U Hepatocellular Carcinoma. Pt awake, confused, unable to follows commands. Objective - Vital Signs/Intake and Output Vital Signs (last 24 hours): Temp Pulse Resp BP Pulse Ox 97.5 F L 108 H 18 96/72 L 96 07/21/18 11:56 07/21/18 11:56 07/21/18 11:56 07/21/18 11:56 07/21/18 11:56 - Medications Medications: Current Medications Folic Acid (Folic Acid) 1 mg PO DAILY [facility] Last Admin: 07/21/18 10:05 Dose: 1 mg Nadolol (Corgard) 20 mg PO DAILY [facility] Last Admin: 07/21/18 10:31 Dose: 20 mg Rifaximin (Xifaxan) 550 mg PO BID [facility]; Protocol Last Admin: 07/21/18 09:30 Dose: 550 mg Thiamine HCl (Vitamin B1 Tab) 100 mg PO DAILY [facility] Last Admin: 07/21/18 11:30 Dose: 100 mg Vancomycin HCl (Vancocin (Oral/Rectal Use)) 250 mg PO Q6 [facility]; Protocol Last Admin: 07/21/18 10:15 Dose: 250 mg - Labs Labs: 07/21/18 04:20 07/21/18 04:20 - Constitutional Appears: No Acute Distress, Chronically Ill - Head Exam Head Exam: NORMAL INSPECTION - Eye Exam Eye Exam: Scleral icterus - ENT Exam ENT Exam: Normal Exam - Neck Exam Neck Exam: Normal Inspection - Respiratory Exam Respiratory Exam: Decreased Breath Sounds (at bases) - Cardiovascular Exam Cardiovascular Exam: REGULAR RHYTHM - GI/Abdominal Exam GI & Abdominal Exam: Distended, Firm, Hypoactive Bowel Sounds Additional comments: Collateral circulation. - Extremities Exam Additional comments: 3+ non pitting edema b/l ankles. Ecchymosis b/l arms. - Back Exam Additional comments: Redness R-L flank - Neurological Exam Neurological Exam: Awake Additional comments: Lethargic, arousable, weakness L/E> L/E. - Psychiatric Exam Additional comments: Calm - Skin Skin Exam: Warm Additional comments: Feet cold to touch. Assessment and Plan (1) Hepatocellular carcinoma Status: Acute (2) Abdominal distention Status: Acute (3) Metabolic encephalopathy Status: Acute (4) ARF (acute renal failure) Status: Acute (5) Alcoholic cirrhosis of liver Status: Acute (6) Altered mental status Status: Acute - Assessment and Plan (Free Text) Plan: Continue Vanco, Xifaxan, Cogard and rest of Tx.
[2018-07-21 15:50] VITALS: BMI 28.0
[2018-07-22] MEDS: Vancomycin 500 mg (Oral/Rectal USE) PO SCH ×4 (04:40→21:31)
--- NOTE | 2018-07-22 16:54 | CP.PCM.PN ---
Subjective - Date & Time of Evaluation Date of Evaluation: 07/22/18 - Subjective Subjective: F/U Hepatocellular Carcinoma. Pt awake, answer questions, at times confused, denied abdominal pain, good appetite. Objective - Vital Signs/Intake and Output Vital Signs (last 24 hours): Temp Pulse Resp BP Pulse Ox 97.9 F 92 H 18 107/75 94 L 07/22/18 12:17 07/22/18 12:17 07/22/18 12:17 07/22/18 12:17 07/22/18 12:17 - Medications Medications: Current Medications Folic Acid (Folic Acid) 1 mg PO DAILY [facility] Last Admin: 07/22/18 08:48 Dose: 1 mg Nadolol (Corgard) 20 mg PO DAILY [facility] Last Admin: 07/22/18 08:48 Dose: 20 mg Rifaximin (Xifaxan) 550 mg PO BID [facility]; Protocol Last Admin: 07/22/18 16:43 Dose: Not Given Thiamine HCl (Vitamin B1 Tab) 100 mg PO DAILY [facility] Last Admin: 07/22/18 08:47 Dose: 100 mg Vancomycin HCl (Vancocin (Oral/Rectal Use)) 250 mg PO Q6 [facility]; Protocol Last Admin: 07/22/18 16:43 Dose: Not Given - Labs Labs: 07/21/18 04:20 07/21/18 04:20 - Constitutional Appears: No Acute Distress, Chronically Ill - Head Exam Head Exam: NORMAL INSPECTION - Eye Exam Eye Exam: Scleral icterus - ENT Exam ENT Exam: Normal Exam - Neck Exam Neck Exam: Normal Inspection - Respiratory Exam Respiratory Exam: Decreased Breath Sounds (at bases) - Cardiovascular Exam Cardiovascular Exam: REGULAR RHYTHM - GI/Abdominal Exam GI & Abdominal Exam: Firm, Normal Bowel Sounds Additional comments: Collateral circulation - Extremities Exam Additional comments: 3+non pitting edema b/l ankles. Ecchymosis b/l arms - Neurological Exam Neurological Exam: Awake Additional comments: Answer questions, at times confused, weakness L/E > L/E - Psychiatric Exam Additional comments: Calm - Skin Skin Exam: Warm Assessment and Plan (1) Hepatocellular carcinoma Status: Acute (2) Abdominal distention Status: Acute (3) Metabolic encephalopathy Status: Acute (4) ARF (acute renal failure) Status: Acute (5) Alcoholic cirrhosis of liver Status: Acute (6) Altered mental status Status: Acute - Assessment and Plan (Free Text) Plan: Continue Vanco, Xifaxan, Folic Acid, Corgard and rest of Tx.
--- NOTE | 2018-07-22 23:32 | CP.PCM.CON ---
History of Present Illness - History of Present Illness History of Present Illness: 68 yo male with h/o aloholic cirrhosis admitted with elevated WBC and abdominal distention. Recently discharged with similar symptoms Patient unable to provide history. Review of Systems - Review of Systems Systems not reviewed;Unavailable: Altered Mental Status Past Patient History - Past Medical History & Family History Past Medical History?: Yes - Past Social History Smoking Status: Former Smoker Alcohol: Other (Heavy drinker in the past, as of Jul 2018 avg 1 pt Vodka/week.) Drugs: Denies Home Situation {Lives}: Assisted - CARDIAC Hx Cardiac Disorders: Yes Hx Hypertension: Yes - PULMONARY Hx Respiratory Disorders: No - NEUROLOGICAL Hx Neurological Disorder: Yes (AMS) - HEENT Hx HEENT Problems: No - RENAL Hx Chronic Kidney Disease: Yes Hx Renal Failure: Yes - ENDOCRINE/METABOLIC Hx Endocrine Disorders: No - HEMATOLOGICAL/ONCOLOGICAL Hx Blood Disorders: No - INTEGUMENTARY Hx Dermatological Problems: No - MUSCULOSKELETAL/RHEUMATOLOGICAL Hx Musculoskeletal Disorders: Yes Hx Falls: Yes - GASTROINTESTINAL Hx Gastrointestinal Disorders: Yes (Cirrhosis, hepatic ascites.) Hx Clostridium Difficile: Yes - GENITOURINARY/GYNECOLOGICAL Hx Genitourinary Disorders: No - PSYCHIATRIC Hx Psychophysiologic Disorder: No Hx Substance Use: No - SURGICAL HISTORY Hx Surgeries: Yes Hx Herniorrhaphy: Yes Hx Orthopedic Surgery: Yes (Right shoulder surgery) - ANESTHESIA Hx Anesthesia: Yes Hx Anesthesia Reactions: No Hx Malignant Hyperthermia: No Meds Allergies/Adverse Reactions: Allergies Allergy/AdvReac Type Severity Reaction Status Date / Time No Known Allergies Allergy Verified 07/02/18 21:23 - Medications Medications: Current Medications Folic Acid (Folic Acid) 1 mg PO DAILY [facility] Last Admin: 07/22/18 08:48 Dose: 1 mg Furosemide (Lasix) 40 mg IV DAILY [facility] Nadolol (Corgard) 20 mg PO DAILY [facility] Last Admin: 07/22/18 08:48 Dose: 20 mg Rifaximin (Xifaxan) 550 mg PO BID [facility]; Protocol Last Admin: 07/22/18 16:43 Dose: Not Given Thiamine HCl (Vitamin B1 Tab) 100 mg PO DAILY [facility] Last Admin: 07/22/18 08:47 Dose: 100 mg Vancomycin HCl (Vancocin (Oral/Rectal Use)) 250 mg PO Q6 [facility]; Protocol Last Admin: 07/22/18 21:31 Dose: 250 mg Physical Exam - Constitutional Appears: Older Than Stated Age, Confused, Chronically Ill - Head Exam Head Exam: ATRAUMATIC - Eye Exam Eye Exam: Scleral icterus Pupil Exam: PERRL - ENT Exam ENT Exam: Normal Exam - Respiratory Exam Respiratory Exam: Clear to Auscultation Bilateral - Cardiovascular Exam Cardiovascular Exam: REGULAR RHYTHM - GI/Abdominal Exam GI & Abdominal Exam: Firm, Normal Bowel Sounds. absent: Tenderness - Rectal Exam Rectal Exam: Deferred - Extremities Exam Extremities exam: Positive for: normal inspection Results - Vital Signs Recent Vital Signs: Last Vital Signs Temp 98.7 F 07/22/18 21:00 Pulse 86 07/22/18 21:00 Resp 18 07/22/18 21:00 BP 110/73 07/22/18 21:00 Pulse Ox 100 07/22/18 21:00 - Labs Result Diagrams: 07/21/18 04:20 07/21/18 04:20 Assessment & Plan (1) Alcoholic cirrhosis of liver Assessment and Plan: Patient with cirrhosis and ascites. CT done on 07/13 was suspicious for HCC though AFP is not elevated. CA 19-9 was elevated at 100. Parascentesis during last admission showed transudate. Will add diuretics. Repeat CA19-9. Follow Is and Os Status: Acute Priority: High
[2018-07-23] MEDS: Vancomycin 500 mg (Oral/Rectal USE) PO SCH ×4 (04:49→21:37)
[2018-07-23 07:29] LABS: BASO # 0.3 K/uL (0.0-0.2); BASO % 1.5 % (0.0-2.0); EOS # 0.7 K/uL (0.0-0.7); EOS % 3.3 % (0.0-4.0); HEMOGLOBIN 12.1 g/dL (12.0-18.0); LYMPH % 9.2 % (20.0-40.0); MEAN CELL VOLUME 99.8 fl (80.0-94.0); MEAN CORPUSCULAR HEMOGLOBIN 32.6 pg (27.0-31.0); MEAN CORPUSCULAR HGB CONC 32.7 g/dL (33.0-37.0); MEAN PLATELET VOLUME 9.1 fl (7.2-11.7); MONO # 1.9 K/uL (0.0-0.8); MONO % 8.7 % (0.0-10.0); NEUT # 16.5 K/uL (1.8-7.0); NEUT % 77.3 % (50.0-75.0); PLATELET COUNT 194 K/uL (130-400); RBC 3.72 Mil/uL (4.40-5.90); RED CELL DISTRIBUTION WIDTH 15.8 % (11.5-14.5); WHITE BLOOD COUNT 21.3 K/uL (4.8-10.8)
[2018-07-23 07:40] LABS: ALB/GLOB RATIO 0.5 (1.0-2.1); ALBUMIN 2.1 g/dL (3.5-5.0); ALT/SGPT 52 U/L (21-72); AST/SGOT 151 U/L (17-59); BLOOD UREA NITROGEN 21 mg/dl (9-20); CALCIUM 8.1 mg/dL (8.4-10.2); GFR NON-AFRICAN AMERICAN > 60
[2018-07-23 09:22] LABS: BANDS 3 % (0-2); BASOPHIL 1 % (0-2); EOSINOPHIL 2 % (0-7); LYMPHOCYTE 8 % (20-50); MONOCYTE 7 % (0-10); NEUTROPHIL 79 % (42-75); PLATELET ESTIMATE NORMAL (NORMAL); TOTAL CELLS COUNTED 100
[2018-07-23 09:23] LABS: ANISOCYTOSIS SLIGHT; LARGE PLATELETS PRESENT; OVALOCYTES SLIGHT; TEARDROP CELLS SLIGHT
--- NOTE | 2018-07-23 15:46 | CP.PCM.PN ---
Subjective - Date & Time of Evaluation Date of Evaluation: 07/23/18 - Subjective Subjective: F/U Hepatocellular Carcinoma. Pt lethargic today, arousable, poor oral intake aS PER NURSES. Objective - Vital Signs/Intake and Output Vital Signs (last 24 hours): Temp Pulse Resp BP Pulse Ox 97.5 F L 82 18 103/70 96 07/23/18 11:58 07/23/18 11:58 07/23/18 11:58 07/23/18 11:58 07/23/18 11:58 Intake and Output: 07/23/18 07/23/18 06:59 18:59 Intake Total 200 Output Total 20 Balance 180 - Medications Medications: Current Medications Folic Acid (Folic Acid) 1 mg PO DAILY [facility] Last Admin: 07/23/18 08:40 Dose: 1 mg Furosemide (Lasix) 40 mg IV DAILY [facility] Last Admin: 07/23/18 08:41 Dose: 40 mg Nadolol (Corgard) 20 mg PO DAILY [facility] Last Admin: 07/23/18 08:39 Dose: 20 mg Rifaximin (Xifaxan) 550 mg PO BID [facility]; Protocol Last Admin: 07/23/18 08:42 Dose: 550 mg Thiamine HCl (Vitamin B1 Tab) 100 mg PO DAILY [facility] Last Admin: 07/23/18 08:42 Dose: 100 mg Vancomycin HCl (Vancocin (Oral/Rectal Use)) 250 mg PO Q6 [facility]; Protocol Last Admin: 07/23/18 09:51 Dose: 250 mg - Labs Labs: 07/23/18 06:30 07/23/18 06:30 - Constitutional Appears: No Acute Distress - Head Exam Head Exam: NORMAL INSPECTION - Eye Exam Eye Exam: Scleral icterus - ENT Exam ENT Exam: Normal Exam - Neck Exam Neck Exam: Normal Inspection - Respiratory Exam Respiratory Exam: Decreased Breath Sounds (at bases) - Cardiovascular Exam Cardiovascular Exam: REGULAR RHYTHM - GI/Abdominal Exam GI & Abdominal Exam: Firm, Normal Bowel Sounds Additional comments: Collateral circulation - Extremities Exam Additional comments: 3+ non pitting edema b/l ankles. Ecchymosis b/l arms - Neurological Exam Neurological Exam: Awake Additional comments: lETHARGIC, AROUSABLE, UNABLE TO FOLLOWS COMMADS, GENERALIZED WEAKNESS. - Psychiatric Exam Additional comments: Lethargic - Skin Skin Exam: Warm Assessment and Plan (1) Hepatocellular carcinoma Status: Acute (2) Abdominal distention Status: Acute (3) Metabolic encephalopathy Status: Acute (4) ARF (acute renal failure) Status: Acute (5) Alcoholic cirrhosis of liver Status: Acute (6) Altered mental status Status: Acute - Assessment and Plan (Free Text) Plan: Continue Vanco, Lasix, Xifaxan, Folic Acid, Corgard and rest of Tx.
[2018-07-23] MEDS: Albumin Human 25% (12.5 gm/50 ml) IV SCH (17:48)
[2018-07-24] MEDS: Vancomycin 500 mg (Oral/Rectal USE) PO SCH ×4 (04:30→21:48)
[2018-07-24] MEDS: Albumin Human 25% (12.5 gm/50 ml) IV SCH ×3 (09:44→17:10)
--- NOTE | 2018-07-24 13:23 | CP.PCM.PN ---
Subjective - Date & Time of Evaluation Date of Evaluation: 07/24/18 Time of Evaluation: 13:20 - Subjective Subjective: Patient remains confused. Appears comfortable. Objective - Vital Signs/Intake and Output Vital Signs (last 24 hours): Temp Pulse Resp BP Pulse Ox 98.5 F 93 H 20 101/68 95 07/24/18 12:00 07/24/18 12:00 07/24/18 12:00 07/24/18 12:00 07/24/18 12:00 - Medications Medications: Current Medications Albumin Human (Albumin Human 25% (12.5 Gm/50 Ml)) 12.5 gm IV TID [facility] Stop: 07/26/18 18:00 Last Admin: 07/24/18 09:44 Dose: 12.5 gm Folic Acid (Folic Acid) 1 mg PO DAILY [facility] Last Admin: 07/24/18 09:40 Dose: 1 mg Furosemide (Lasix) 40 mg IV DAILY [facility] Last Admin: 07/24/18 09:40 Dose: 40 mg Nadolol (Corgard) 20 mg PO DAILY [facility] Last Admin: 07/24/18 09:40 Dose: 20 mg Rifaximin (Xifaxan) 550 mg PO BID [facility]; Protocol Last Admin: 07/24/18 09:39 Dose: 550 mg Thiamine HCl (Vitamin B1 Tab) 100 mg PO DAILY [facility] Last Admin: 07/24/18 09:40 Dose: 100 mg Vancomycin HCl (Vancocin (Oral/Rectal Use)) 250 mg PO Q6 [facility]; Protocol Last Admin: 07/24/18 09:41 Dose: 250 mg - Labs Labs: 07/23/18 06:30 07/23/18 06:30 - Head Exam Head Exam: ATRAUMATIC - Eye Exam Eye Exam: Normal appearance - Neck Exam Neck Exam: Full ROM - Respiratory Exam Respiratory Exam: NORMAL BREATHING PATTERN - Cardiovascular Exam Cardiovascular Exam: REGULAR RHYTHM - GI/Abdominal Exam GI & Abdominal Exam: Soft, Normal Bowel Sounds Assessment and Plan (1) Alcoholic cirrhosis of liver Assessment & Plan: Patient with cirrhosis. CT shows a large hypodense area. AFP is negative but CA19-9 is rising raising possibility pancreatic cancer. Continue current treatment Status: Acute
[2018-07-24 14:56] LABS: BASO # 0.3 K/uL (0.0-0.2); BASO % 1.4 % (0.0-2.0); EOS # 0.6 K/uL (0.0-0.7); EOS % 2.5 % (0.0-4.0); HEMOGLOBIN 12.3 g/dL (12.0-18.0); MEAN CELL VOLUME 99.3 fl (80.0-94.0); MEAN CORPUSCULAR HEMOGLOBIN 33.3 pg (27.0-31.0); MEAN CORPUSCULAR HGB CONC 33.5 g/dL (33.0-37.0); MEAN PLATELET VOLUME 9.1 fl (7.2-11.7); MONO # 1.7 K/uL (0.0-0.8); MONO % 7.7 % (0.0-10.0); NEUT # 17.8 K/uL (1.8-7.0); NEUT % 79.4 % (50.0-75.0); NRBC % 0.1 % (0.0-0.0); RBC 3.71 Mil/uL (4.40-5.90); RED CELL DISTRIBUTION WIDTH 16.4 % (11.5-14.5); WHITE BLOOD COUNT 22.5 K/uL (4.8-10.8)
[2018-07-24 15:01] LABS: ALB/GLOB RATIO 0.5 (1.0-2.1); ALBUMIN 2.2 g/dL (3.5-5.0); ALT/SGPT 53 U/L (21-72); AST/SGOT 155 U/L (17-59); BLOOD UREA NITROGEN 19 mg/dl (9-20); CALCIUM 8.2 mg/dL (8.4-10.2); GFR NON-AFRICAN AMERICAN > 60
--- NOTE | 2018-07-24 18:11 | CP.PCM.DIS ---
Provider - Provider Date of Admission: 07/20/18 05:53 Attending physician: Rayshawn Bill MD Diagnosis - Discharge Diagnosis (1) Hepatocellular carcinoma Status: Acute Priority: High (2) Abdominal distention Status: Acute Priority: High (3) Metabolic encephalopathy Status: Acute Priority: High (4) ARF (acute renal failure) Status: Acute Priority: High (5) Alcoholic cirrhosis of liver Status: Acute Priority: High (6) Altered mental status Status: Acute Priority: High Hospital Course - Lab Results Lab Results: Micro Results 07/20/18 05:00 Blood Blood Culture - Preliminary NO GROWTH AFTER 4 DAYS 07/20/18 05:15 Urine,Catheterized Urine Culture - Final No Growth (<1,000 CFU/ML) Most Recent Lab Values WBC 22.5 K/uL (4.8-10.8) H 07/24/18 14:05 RBC 3.71 Mil/uL (4.40-5.90) L 07/24/18 14:05 Hgb 12.3 g/dL (12.0-18.0) 07/24/18 14:05 Hct 36.8 % (35.0-51.0) 07/24/18 14:05 MCV 99.3 fl (80.0-94.0) H 07/24/18 14:05 MCH 33.3 pg (27.0-31.0) H 07/24/18 14:05 MCHC 33.5 g/dL (33.0-37.0) 07/24/18 14:05 RDW 16.4 % (11.5-14.5) H 07/24/18 14:05 Plt Count 214 K/uL (130-400) 07/24/18 14:05 MPV 9.1 fl (7.2-11.7) 07/24/18 14:05 Neut % (Auto) 79.4 % (50.0-75.0) H 07/24/18 14:05 Lymph % (Auto) 9.0 % (20.0-40.0) L 07/24/18 14:05 Burke % (Auto) 7.7 % (0.0-10.0) 07/24/18 14:05 Eos % (Auto) 2.5 % (0.0-4.0) 07/24/18 14:05 Baso % (Auto) 1.4 % (0.0-2.0) 07/24/18 14:05 Neut # (Auto) 17.8 K/uL (1.8-7.0) H 07/24/18 14:05 Lymph # (Auto) 2.0 K/uL (1.0-4.3) 07/24/18 14:05 Burke # (Auto) 1.7 K/uL (0.0-0.8) H 07/24/18 14:05 Eos # (Auto) 0.6 K/uL (0.0-0.7) 07/24/18 14:05 Baso # (Auto) 0.3 K/uL (0.0-0.2) H 07/24/18 14:05 Neutrophils % (Manual) 79 % (42-75) H 07/23/18 06:30 Band Neutrophils % 3 % (0-2) H 07/23/18 06:30 Lymphocytes % (Manual) 8 % (20-50) L 07/23/18 06:30 Monocytes % (Manual) 7 % (0-10) 07/23/18 06:30 Eosinophils % (Manual) 2 % (0-7) 07/23/18 06:30 Basophils % (Manual) 1 % (0-2) 07/23/18 06:30 Platelet Estimate Normal (NORMAL) 07/23/18 06:30 Large Platelets Present 07/23/18 06:30 Hypochromasia (manual) Slight 07/20/18 05:00 Anisocytosis (manual) Slight 07/23/18 06:30 Tear Drop Cells Slight 07/23/18 06:30 Ovalocytes Slight 07/23/18 06:30 Rouleaux Moderate 07/20/18 05:00 pO2 40 mm/Hg (30-55) 07/20/18 08:17 VBG pH 7.41 (7.32-7.43) 07/20/18 08:17 VBG pCO2 37 mmHg (40-60) L 07/20/18 08:17 VBG HCO3 23.6 mmol/L 07/20/18 08:17 VBG Total CO2 24.6 mmol/L (22-28) 07/20/18 08:17 VBG O2 Sat (Calc) 80.1 % (40-65) H 07/20/18 08:17 VBG Base Excess -0.8 mmol/L (0.0-2.0) L 07/20/18 08:17 VBG Potassium 4.3 mmol/L (3.6-5.2) 07/20/18 08:17 Sodium 131.0 mmol/L (132-148) L 07/20/18 08:17 Chloride 108.0 mmol/L (98-107) H 07/20/18 08:17 Glucose 101 mg/dL (75-110) 07/20/18 08:17 Lactate 2.2 mmol/L (0.7-2.1) H 07/20/18 08:17 FiO2 21.0 % 07/20/18 08:17 Sodium 139 mmol/l (132-148) 07/24/18 14:05 Potassium 3.6 MMOL/L (3.6-5.0) 07/24/18 14:05 Chloride 111 mmol/L (98-107) H 07/24/18 14:05 Carbon Dioxide 24 mmol/L (22-30) 07/24/18 14:05 Anion Gap 8 (10-20) L 07/24/18 14:05 BUN 19 mg/dl (9-20) 07/24/18 14:05 Creatinine 1.0 mg/dl (0.8-1.5) 07/24/18 14:05 Est GFR ( Amer) > 60 07/24/18 14:05 Est GFR (Non-Af Amer) > 60 07/24/18 14:05 Random Glucose 100 mg/dL (75-110) 07/24/18 14:05 Calcium 8.2 mg/dL (8.4-10.2) L 07/24/18 14:05 Phosphorus 3.2 mg/dl (2.5-4.5) 07/23/18 06:30 Magnesium 1.6 MG/DL (1.6-2.3) 07/23/18 06:30 Total Bilirubin 5.3 mg/dl (0.2-1.3) H 07/24/18 14:05 AST 155 U/L (17-59) H 07/24/18 14:05 ALT 53 U/L (21-72) 07/24/18 14:05 Alkaline Phosphatase 277 U/L (38-126) H 07/24/18 14:05 Ammonia 26 umo/L (16-60) D 07/20/18 05:00 Total Protein 6.3 G/DL (6.3-8.2) 07/24/18 14:05 Albumin 2.2 g/dL (3.5-5.0) L 07/24/18 14:05 Globulin 4.1 gm/dL (2.2-3.9) H 07/24/18 14:05 Albumin/Globulin Ratio 0.5 (1.0-2.1) L 07/24/18 14:05 Alpha Fetoprotein 1.9 IU/mL (0.0-7.22) 07/23/18 06:30 CA 19-9 Antigen 260 U/mL (0-37) H D 07/23/18 06:30 Venous Blood Potassium 4.3 mmol/L (3.6-5.2) 07/20/18 08:17 Urine Color Maria Antonia (YELLOW) 07/20/18 05:15 Urine Clarity Slighty-cloudy (Clear) 07/20/18 05:15 Urine pH 5.0 (5.0-8.0) 07/20/18 05:15 Ur Specific [place]ina 1.027 (1.003-1.030) 07/20/18 05:15 Urine Protein 30 mg/dL (NEGATIVE) 07/20/18 05:15 Urine Glucose (UA) Neg mg/dL (Normal) 07/20/18 05:15 Urine Ketones Negative mg/dL (NEGATIVE) 07/20/18 05:15 Urine Blood Negative (NEGATIVE) 07/20/18 05:15 Urine Nitrate Negative (NEGATIVE) 07/20/18 05:15 Urine Bilirubin Small (NEGATIVE) 07/20/18 05:15 Urine Urobilinogen 2.0 mg/dL (0.2-1.0) 07/20/18 05:15 Ur Leukocyte Esterase Neg Param/uL (Negative) 07/20/18 05:15 Urine RBC (Auto) 3 /hpf (0-3) 07/20/18 05:15 Urine Microscopic WBC 5 /hpf (0-5) 07/20/18 05:15 Ur Squamous Epith Cells < 1 /hpf (0-5) 07/20/18 05:15 Urine Bacteria Rare (<OCC) 07/20/18 05:15 Hyaline Casts 6-10 /hpf (0-2) H 07/20/18 05:15 Discharge Exam - Head Exam Head Exam: NORMAL INSPECTION Discharge Plan - Follow Up Plan Condition: GUARDED Disposition: HOME/ ROUTINE
--- NOTE | 2018-07-24 19:32 | CP.PCM.PN ---
Subjective - Date & Time of Evaluation Date of Evaluation: 07/24/18 Time of Evaluation: 09:40 - Subjective Subjective: F/U Hepatocellular Carcinoma. Pt lethargic, arousable to verbal stimuli. Objective - Vital Signs/Intake and Output Vital Signs (last 24 hours): Temp Pulse Resp BP Pulse Ox 98.4 F 91 H 17 107/72 96 07/24/18 15:52 07/24/18 15:52 07/24/18 15:52 07/24/18 15:52 07/24/18 15:52 - Medications Medications: Current Medications Folic Acid (Folic Acid) 1 mg PO DAILY [facility] Last Admin: 07/24/18 09:40 Dose: 1 mg Furosemide (Lasix) 40 mg IV DAILY [facility] Last Admin: 07/24/18 09:40 Dose: 40 mg Nadolol (Corgard) 20 mg PO DAILY [facility] Last Admin: 07/24/18 09:40 Dose: 20 mg Rifaximin (Xifaxan) 550 mg PO BID [facility]; Protocol Last Admin: 07/24/18 17:15 Dose: 550 mg Thiamine HCl (Vitamin B1 Tab) 100 mg PO DAILY [facility] Last Admin: 07/24/18 09:40 Dose: 100 mg Vancomycin HCl (Vancocin (Oral/Rectal Use)) 250 mg PO Q6 [facility]; Protocol Last Admin: 07/24/18 16:45 Dose: 250 mg - Labs Labs: 07/24/18 14:05 07/24/18 14:05 - Constitutional Appears: No Acute Distress - Head Exam Head Exam: NORMAL INSPECTION - Eye Exam Eye Exam: PERRL - ENT Exam ENT Exam: Normal Exam - Neck Exam Neck Exam: Normal Inspection - Respiratory Exam Respiratory Exam: Decreased Breath Sounds (at bases) - Cardiovascular Exam Cardiovascular Exam: REGULAR RHYTHM - GI/Abdominal Exam GI & Abdominal Exam: Firm, Hypoactive Bowel Sounds (slightly) Additional comments: Collateral circulation - Extremities Exam Additional comments: Edema b/l ankles. Ecchymosis b/l hands. - Neurological Exam Neurological Exam: Awake Additional comments: Lethargic, arousable, unable to follows commands, generalized weakness - Skin Skin Exam: Warm Assessment and Plan (1) Hepatocellular carcinoma Status: Acute (2) Abdominal distention Status: Acute (3) Metabolic encephalopathy Status: Acute (4) ARF (acute renal failure) Status: Acute (5) Alcoholic cirrhosis of liver Status: Acute (6) Altered mental status Status: Acute - Assessment and Plan (Free Text) Plan: GI cleared DC to NH today, continue Vanco and rest of Tx.
[2018-07-25] MEDS: Vancomycin 500 mg (Oral/Rectal USE) PO SCH ×4 (04:30→21:34)
--- NOTE | 2018-07-25 15:03 | CP.PCM.PN ---
Subjective - Date & Time of Evaluation Date of Evaluation: 07/25/18 Time of Evaluation: 09:00 - Subjective Subjective: F/U Hepatocellular Ca. Pt lethargic, non arousable. Objective - Vital Signs/Intake and Output Vital Signs (last 24 hours): Temp Pulse Resp BP Pulse Ox 98.2 F 94 H 20 104/66 100 07/25/18 12:00 07/25/18 12:00 07/25/18 12:00 07/25/18 12:00 07/25/18 12:00 - Medications Medications: Current Medications Folic Acid (Folic Acid) 1 mg PO DAILY [facility] Last Admin: 07/25/18 09:55 Dose: 1 mg Furosemide (Lasix) 40 mg IV DAILY [facility] Last Admin: 07/25/18 09:55 Dose: 40 mg Nadolol (Corgard) 20 mg PO DAILY [facility] Last Admin: 07/25/18 09:55 Dose: 20 mg Rifaximin (Xifaxan) 550 mg PO BID [facility]; Protocol Last Admin: 07/25/18 09:55 Dose: 550 mg Thiamine HCl (Vitamin B1 Tab) 100 mg PO DAILY [facility] Last Admin: 07/25/18 09:56 Dose: 100 mg Vancomycin HCl (Vancocin (Oral/Rectal Use)) 250 mg PO Q6 [facility]; Protocol Last Admin: 07/25/18 09:56 Dose: 250 mg - Labs Labs: 07/24/18 14:05 07/24/18 14:05 - Constitutional Appears: No Acute Distress - Head Exam Head Exam: NORMAL INSPECTION - Eye Exam Eye Exam: Scleral icterus - ENT Exam ENT Exam: Normal Exam - Neck Exam Neck Exam: Normal Inspection - Respiratory Exam Respiratory Exam: Decreased Breath Sounds (at bases) - Cardiovascular Exam Cardiovascular Exam: REGULAR RHYTHM - GI/Abdominal Exam GI & Abdominal Exam: Firm, Hypoactive Bowel Sounds (slightly) Additional comments: Collateral circulation - Extremities Exam Additional comments: 3+ non pitting edema b/l ankles. Ecchymosis b/l arms - Neurological Exam Additional comments: Lethargic, unable to follows commands, generalized weakness. - Psychiatric Exam Additional comments: Lethargic - Skin Skin Exam: Warm Assessment and Plan (1) Hepatocellular carcinoma Status: Acute (2) Abdominal distention Status: Acute (3) Metabolic encephalopathy Status: Acute (4) ARF (acute renal failure) Status: Acute (5) Alcoholic cirrhosis of liver Status: Acute (6) Altered mental status Status: Acute - Assessment and Plan (Free Text) Plan: Pt family refused to be transferred to [place], they want medical opinion from [facility].
--- NOTE | 2018-07-25 19:02 | CP.PCM.PN ---
Subjective - Date & Time of Evaluation Date of Evaluation: 07/25/18 Time of Evaluation: 08:00 - Subjective Subjective: patient appears in no acute distress.. Objective - Vital Signs/Intake and Output Vital Signs (last 24 hours): Temp Pulse Resp BP Pulse Ox 98.1 F 91 H 18 96/63 L 95 07/25/18 16:53 07/25/18 16:53 07/25/18 16:53 07/25/18 16:53 07/25/18 16:53 - Medications Medications: Current Medications Folic Acid (Folic Acid) 1 mg PO DAILY [facility] Last Admin: 07/25/18 09:55 Dose: 1 mg Furosemide (Lasix) 40 mg IV DAILY [facility] Last Admin: 07/25/18 09:55 Dose: 40 mg Nadolol (Corgard) 20 mg PO DAILY [facility] Last Admin: 07/25/18 09:55 Dose: 20 mg Rifaximin (Xifaxan) 550 mg PO BID [facility]; Protocol Last Admin: 07/25/18 16:55 Dose: 550 mg Thiamine HCl (Vitamin B1 Tab) 100 mg PO DAILY [facility] Last Admin: 07/25/18 09:56 Dose: 100 mg Vancomycin HCl (Vancocin (Oral/Rectal Use)) 250 mg PO Q6 [facility]; Protocol Last Admin: 07/25/18 16:55 Dose: 250 mg - Labs Labs: 07/24/18 14:05 07/24/18 14:05 - Head Exam Head Exam: ATRAUMATIC - Eye Exam Eye Exam: Normal appearance Pupil Exam: PERRL - ENT Exam ENT Exam: Mucous Membranes Moist - Neck Exam Neck Exam: Full ROM - Respiratory Exam Respiratory Exam: Clear to Ausculation Bilateral - Cardiovascular Exam Cardiovascular Exam: REGULAR RHYTHM - GI/Abdominal Exam GI & Abdominal Exam: Firm Assessment and Plan (1) Alcoholic cirrhosis of liver Assessment & Plan: Cirrhosis of liver with ascites. Lasix had been added. Will check labs in AM. Status: Acute
[2018-07-26] MEDS: Vancomycin 500 mg (Oral/Rectal USE) PO SCH ×4 (03:52→21:18)
[2018-07-26 06:54] LABS: ALB/GLOB RATIO 0.6 (1.0-2.1); ALBUMIN 2.5 g/dL (3.5-5.0); ALT/SGPT 51 U/L (21-72); AST/SGOT 170 U/L (17-59); BLOOD UREA NITROGEN 18 mg/dl (9-20); CALCIUM 8.4 mg/dL (8.4-10.2); GFR NON-AFRICAN AMERICAN > 60
[2018-07-26 06:59] LABS: BASO # 0.2 K/uL (0.0-0.2); BASO % 1.1 % (0.0-2.0); EOS # 0.5 K/uL (0.0-0.7); EOS % 2.4 % (0.0-4.0); HEMOGLOBIN 14.2 g/dL (12.0-18.0); LYMPH # 1.9 K/uL (1.0-4.3); LYMPH % 8.6 % (20.0-40.0); MEAN CELL VOLUME 101.7 fl (80.0-94.0); MEAN CORPUSCULAR HEMOGLOBIN 33.5 pg (27.0-31.0); MEAN PLATELET VOLUME 9.2 fl (7.2-11.7); MONO # 1.3 K/uL (0.0-0.8); MONO % 5.7 % (0.0-10.0); NEUT # 18.1 K/uL (1.8-7.0); NEUT % 82.2 % (50.0-75.0); NRBC % 0.4 % (0.0-0.0); RBC 4.24 Mil/uL (4.40-5.90); RED CELL DISTRIBUTION WIDTH 17.1 % (11.5-14.5)
--- NOTE | 2018-07-26 16:29 | CP.PCM.PN ---
Subjective - Date & Time of Evaluation Date of Evaluation: 07/26/18 Time of Evaluation: 11:40 - Subjective Subjective: F/u Hepatocellular Carcinoma. Pt very lethargic, minimal response to verbal/tactil stimuli. Objective - Vital Signs/Intake and Output Vital Signs (last 24 hours): Temp Pulse Resp BP Pulse Ox 97.8 F 82 18 94/67 L 95 07/26/18 15:45 07/26/18 15:45 07/26/18 15:45 07/26/18 15:45 07/26/18 15:45 - Medications Medications: Current Medications Folic Acid (Folic Acid) 1 mg PO DAILY [facility] Last Admin: 07/26/18 08:58 Dose: 1 mg Furosemide (Lasix) 40 mg IV DAILY [facility] Last Admin: 07/26/18 08:59 Dose: 40 mg Nadolol (Corgard) 20 mg PO DAILY [facility] Last Admin: 07/26/18 08:59 Dose: 20 mg Rifaximin (Xifaxan) 550 mg PO BID [facility]; Protocol Last Admin: 07/26/18 08:59 Dose: 550 mg Thiamine HCl (Vitamin B1 Tab) 100 mg PO DAILY [facility] Last Admin: 07/26/18 08:59 Dose: 100 mg Vancomycin HCl (Vancocin (Oral/Rectal Use)) 250 mg PO Q6 [facility]; Protocol Last Admin: 07/26/18 09:00 Dose: 250 mg - Labs Labs: 07/26/18 05:15 07/26/18 05:15 - Constitutional Appears: No Acute Distress, Chronically Ill - Head Exam Head Exam: NORMAL INSPECTION - Eye Exam Eye Exam: Scleral icterus - ENT Exam ENT Exam: Normal Exam - Neck Exam Neck Exam: Normal Inspection - Respiratory Exam Respiratory Exam: Decreased Breath Sounds (at bases) - Cardiovascular Exam Cardiovascular Exam: REGULAR RHYTHM - GI/Abdominal Exam GI & Abdominal Exam: Firm, Hypoactive Bowel Sounds (slightly) Additional comments: Collateral circulation. - Extremities Exam Additional comments: Edema b/l ankles. ecchymosis b/l arms - Neurological Exam Neurological Exam: Awake Additional comments: Lethargic, arousable, unable to follows commands, generalized weakness. - Skin Skin Exam: Warm Assessment and Plan (1) Hepatocellular carcinoma Status: Acute (2) Abdominal distention Status: Acute (3) Metabolic encephalopathy Status: Acute (4) ARF (acute renal failure) Status: Acute (5) Alcoholic cirrhosis of liver Status: Acute (6) Altered mental status Status: Acute - Assessment and Plan (Free Text) Plan: Hematology and GI 2nd opinion requested by family. Will get in touch with Hepatology dept at [facility].
--- NOTE | 2018-07-26 20:18 | CP.PCM.PN ---
Subjective - Date & Time of Evaluation Date of Evaluation: 07/26/18 Time of Evaluation: 09:00 - Subjective Subjective: Patient tolerating breakfast. Appears comfortable. Objective - Vital Signs/Intake and Output Vital Signs (last 24 hours): Temp Pulse Resp BP Pulse Ox 98.1 F 87 18 100/69 98 07/26/18 19:08 07/26/18 19:08 07/26/18 19:08 07/26/18 19:08 07/26/18 19:08 Intake and Output: 07/26/18 07/27/18 18:59 06:59 Intake Total 720 Balance 720 - Medications Medications: Current Medications Folic Acid (Folic Acid) 1 mg PO DAILY [facility] Last Admin: 07/26/18 08:58 Dose: 1 mg Furosemide (Lasix) 40 mg IV DAILY [facility] Last Admin: 07/26/18 08:59 Dose: 40 mg Nadolol (Corgard) 20 mg PO DAILY [facility] Last Admin: 07/26/18 08:59 Dose: 20 mg Rifaximin (Xifaxan) 550 mg PO BID [facility]; Protocol Last Admin: 07/26/18 17:09 Dose: 550 mg Thiamine HCl (Vitamin B1 Tab) 100 mg PO DAILY [facility] Last Admin: 07/26/18 08:59 Dose: 100 mg Vancomycin HCl (Vancocin (Oral/Rectal Use)) 250 mg PO Q6 [facility]; Protocol Last Admin: 07/26/18 17:10 Dose: 250 mg - Labs Labs: 07/26/18 05:15 07/26/18 05:15 - Head Exam Head Exam: ATRAUMATIC - Eye Exam Eye Exam: PERRL - Neck Exam Neck Exam: Full ROM - Respiratory Exam Respiratory Exam: Clear to Ausculation Bilateral - Cardiovascular Exam Cardiovascular Exam: REGULAR RHYTHM - GI/Abdominal Exam GI & Abdominal Exam: Firm, Normal Bowel Sounds Assessment and Plan (1) Alcoholic cirrhosis of liver Assessment & Plan: Patient was presented to [facility] today. They declined transfer and recommended hospice/palliative care. Continue current treatment. Status: Acute
[2018-07-27] MEDS: Vancomycin 500 mg (Oral/Rectal USE) PO SCH ×4 (04:11→22:28)
--- NOTE | 2018-07-27 09:26 | CP.PCM.CON ---
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 He also has a withdrawal syndrome,and hepatic encephalopathy. 10 days ago he was diagnosed with a hepatocellular carcinoma. At the time pt was ei ther lethargic or very agitated and thrashing around. He seems a little calmer today, but yesterday was very lethargic. I had a long discussion with his daughter1 week ago.. and I had told her that I dont feel that pt is a good candidate for surgery or for chemotherapy because of his physical condition and the extensive disease. I felt the only other choice is if he can get on a clinical trial, which could be available in a cancer center. I felt he should just get supportive care or hospice. [facility] was contacted and they also feel the same. Past Patient History - Past Medical History & Family History Past Medical History?: Yes - Past Social History Smoking Status: Former Smoker Alcohol: Other (Heavy drinker in the past, as of Jul 2018 avg 1 pt Vodka/week.) Drugs: Denies Home Situation {Lives}: Intermediate - CARDIAC Hx Cardiac Disorders: Yes Hx Hypertension: Yes - PULMONARY Hx Respiratory Disorders: No - NEUROLOGICAL Hx Neurological Disorder: Yes (AMS) - HEENT Hx HEENT Problems: No - RENAL Hx Chronic Kidney Disease: Yes Hx Renal Failure: Yes - ENDOCRINE/METABOLIC Hx Endocrine Disorders: No - HEMATOLOGICAL/ONCOLOGICAL Hx Blood Disorders: No - INTEGUMENTARY Hx Dermatological Problems: No - MUSCULOSKELETAL/RHEUMATOLOGICAL Hx Musculoskeletal Disorders: Yes Hx Falls: Yes - GASTROINTESTINAL Hx Gastrointestinal Disorders: Yes (Cirrhosis, hepatic ascites.) Hx Clostridium Difficile: Yes - GENITOURINARY/GYNECOLOGICAL Hx Genitourinary Disorders: No - PSYCHIATRIC Hx Psychophysiologic Disorder: No Hx Substance Use: No - SURGICAL HISTORY Hx Surgeries: Yes Hx Herniorrhaphy: Yes Hx Orthopedic Surgery: Yes (Right shoulder surgery) - ANESTHESIA Hx Anesthesia: Yes Hx Anesthesia Reactions: No Hx Malignant Hyperthermia: No Meds Allergies/Adverse Reactions: Allergies Allergy/AdvReac Type Severity Reaction Status Date / Time No Known Allergies Allergy Verified 07/02/18 21:23 - Medications Medications: Current Medications Folic Acid (Folic Acid) 1 mg PO DAILY [facility] Last Admin: 07/27/18 09:18 Dose: 1 mg Furosemide (Lasix) 40 mg IV DAILY [facility] Last Admin: 07/27/18 09:10 Dose: 40 mg Nadolol (Corgard) 20 mg PO DAILY [facility] Last Admin: 07/27/18 09:09 Dose: 20 mg Rifaximin (Xifaxan) 550 mg PO BID [facility]; Protocol Last Admin: 07/27/18 09:09 Dose: 550 mg Thiamine HCl (Vitamin B1 Tab) 100 mg PO DAILY [facility] Last Admin: 07/27/18 09:09 Dose: 100 mg Vancomycin HCl (Vancocin (Oral/Rectal Use)) 250 mg PO Q6 [facility]; Protocol Last Admin: 07/27/18 04:11 Dose: 250 mg Physical Exam - Additional Findings Additional findings: Pt is awake, but not speaking very much neck; Supple, no adenopathy Chest; air entry good except both bases, some rales but no rhonchi Heart; RSR, no murmur Abd; Ascitis is 3+, no hepatosplenomegaly palpable because of the ascitis. Results - Vital Signs Recent Vital Signs: Last Vital Signs Temp 97 F L 07/27/18 09:00 Pulse 86 07/27/18 09:09 Resp 20 07/27/18 09:00 BP 114/80 07/27/18 09:10 Pulse Ox 94 L 07/27/18 09:00 - Labs Result Diagrams: 07/26/18 05:15 07/26/18 05:15 Assessment & Plan - Assessment and Plan (Free Text) Assessment: Impression; alcoholic liver disease with ascitis,cirrhosis and now also hepatocellular carcinoma. Plan: Plan;; I feel pt is not a candidate for chemotherapy or surgery.Suggest comfort care or hospice - Date & Time Date: 07/27/18 Time: 09:47
--- NOTE | 2018-07-27 10:00 | CP.PCM.PCO ---
Additional Comments - Additional Comments Additional Comments: I called [facility] to discuss pt with Hepatology department for further recommendations and possible transfer. After pt case was presented and discussed with Dr. Beltran, pt is not a transfer or liver transplant candidate. Recommended hospice or possible palliative chemotherapy if a candidate per oncology. This was discussed with primary team and Dr. Quiroz.
--- NOTE | 2018-07-27 12:16 | CP.PCM.PN ---
Subjective - Date & Time of Evaluation Date of Evaluation: 07/27/18 Time of Evaluation: 08:00 - Subjective Subjective: Remains clinically stable though disoriented Objective - Vital Signs/Intake and Output Vital Signs (last 24 hours): Temp Pulse Resp BP Pulse Ox 97 F L 86 20 114/80 94 L 07/27/18 09:00 07/27/18 09:09 07/27/18 09:00 07/27/18 09:10 07/27/18 09:00 - Medications Medications: Current Medications Folic Acid (Folic Acid) 1 mg PO DAILY [facility] Last Admin: 07/27/18 09:18 Dose: 1 mg Furosemide (Lasix) 40 mg IV DAILY [facility] Last Admin: 07/27/18 09:10 Dose: 40 mg Nadolol (Corgard) 20 mg PO DAILY [facility] Last Admin: 07/27/18 09:09 Dose: 20 mg Rifaximin (Xifaxan) 550 mg PO BID [facility]; Protocol Last Admin: 07/27/18 09:09 Dose: 550 mg Thiamine HCl (Vitamin B1 Tab) 100 mg PO DAILY [facility] Last Admin: 07/27/18 09:09 Dose: 100 mg Vancomycin HCl (Vancocin (Oral/Rectal Use)) 250 mg PO Q6 [facility]; Protocol Last Admin: 07/27/18 09:26 Dose: 250 mg - Labs Labs: 07/26/18 05:15 07/26/18 05:15 - Head Exam Head Exam: ATRAUMATIC - Eye Exam Eye Exam: PERRL - ENT Exam ENT Exam: Normal Exam - Neck Exam Neck Exam: Full ROM - Respiratory Exam Respiratory Exam: Clear to Ausculation Bilateral - Cardiovascular Exam Cardiovascular Exam: REGULAR RHYTHM - GI/Abdominal Exam GI & Abdominal Exam: Firm Assessment and Plan (1) Alcoholic cirrhosis of liver Assessment & Plan: Appreciate input from Dr. Harmon and [facility]. Continue palliative care. Status: Acute
--- NOTE | 2018-07-27 12:20 | CP.PCM.PCO ---
Assessment & Plan - Assessment and Plan (Free Text) Assessment: Spoke with patient's regarding discussion with [facility]/ Oncology recommendations, conveys understanding but wishes to meet in person prior to deciding on d/c back to [facility], Will meet with her this afternoon 3 pm- called pt. Yoanna and daughter and explained recommendations from [facility] / oncology, agreeable to d/c pt. to [facility] today
--- NOTE | 2018-07-27 17:35 | CP.PCM.PN ---
Subjective - Date & Time of Evaluation Date of Evaluation: 07/27/18 Time of Evaluation: 09:50 - Subjective Subjective: F/U Hepatocellular Carcinoma. Pt awake, confused. Objective - Vital Signs/Intake and Output Vital Signs (last 24 hours): Temp Pulse Resp BP Pulse Ox 97.7 F 95 H 20 110/79 96 07/27/18 16:33 07/27/18 16:33 07/27/18 16:33 07/27/18 16:33 07/27/18 16:33 - Medications Medications: Current Medications Folic Acid (Folic Acid) 1 mg PO DAILY [facility] Last Admin: 07/27/18 09:18 Dose: 1 mg Furosemide (Lasix) 40 mg IV DAILY [facility] Last Admin: 07/27/18 09:10 Dose: 40 mg Nadolol (Corgard) 20 mg PO DAILY [facility] Last Admin: 07/27/18 09:09 Dose: 20 mg Rifaximin (Xifaxan) 550 mg PO BID [facility]; Protocol Last Admin: 07/27/18 09:09 Dose: 550 mg Thiamine HCl (Vitamin B1 Tab) 100 mg PO DAILY [facility] Last Admin: 07/27/18 09:09 Dose: 100 mg Vancomycin HCl (Vancocin (Oral/Rectal Use)) 250 mg PO Q6 [facility]; Protocol Last Admin: 07/27/18 15:03 Dose: 250 mg - Labs Labs: 07/26/18 05:15 07/26/18 05:15 - Constitutional Appears: No Acute Distress - Head Exam Head Exam: NORMAL INSPECTION - Eye Exam Eye Exam: PERRL - ENT Exam ENT Exam: Normal Exam - Neck Exam Neck Exam: Normal Inspection - Respiratory Exam Respiratory Exam: Decreased Breath Sounds (at bases) - Cardiovascular Exam Cardiovascular Exam: REGULAR RHYTHM - GI/Abdominal Exam GI & Abdominal Exam: Firm, Hypoactive Bowel Sounds (slightly) Additional comments: Collateral circulation. - Extremities Exam Additional comments: 2 + non pitting edema b/l ankles. Ecchymosis b/l arms - Neurological Exam Neurological Exam: Awake Additional comments: Confused, disoriented, generalized weakness - Skin Skin Exam: Warm Additional comments: Jaundice Assessment and Plan (1) Hepatocellular carcinoma Status: Acute (2) Abdominal distention Status: Acute (3) Metabolic encephalopathy Status: Acute (4) ARF (acute renal failure) Status: Acute (5) Alcoholic cirrhosis of liver Status: Acute (6) Altered mental status Status: Acute - Assessment and Plan (Free Text) Plan: Hepatoly service from [facility] did not accept Pt, Pt is not candidate for chemo th erapy, to be on hospice.
[2018-07-28 00:26] VITALS: O2SAT 95
[2018-07-28] MEDS: Vancomycin 500 mg (Oral/Rectal USE) PO SCH ×3 (03:59→10:00)
[2018-07-28 08:47] VITALS: PULSE 96; RESP 20; TEMP 97.1
[2018-07-28 09:02] VITALS: BP 109/69
--- NOTE | 2018-07-28 22:48 | CP.PCM.DIS ---
Provider - Provider Date of Admission: 07/20/18 05:53 Attending physician: Rayshawn Bill MD Diagnosis - Discharge Diagnosis (1) Hepatocellular carcinoma Status: Acute Priority: High (2) Abdominal distention Status: Acute Priority: High (3) Metabolic encephalopathy Status: Acute Priority: High (4) ARF (acute renal failure) Status: Acute Priority: High (5) Alcoholic cirrhosis of liver Status: Acute Priority: High (6) Altered mental status Status: Acute Priority: High Hospital Course - Lab Results Lab Results: Micro Results 07/20/18 05:00 Blood Blood Culture - Final NO GROWTH AFTER 5 DAYS 07/20/18 05:00 Blood Gram Stain - Final TEST NOT PERFORMED 07/20/18 05:15 Urine,Catheterized Urine Culture - Final No Growth (<1,000 CFU/ML) Most Recent Lab Values WBC 22.0 K/uL (4.8-10.8) H 07/26/18 05:15 RBC 4.24 Mil/uL (4.40-5.90) L 07/26/18 05:15 Hgb 14.2 g/dL (12.0-18.0) 07/26/18 05:15 Hct 43.1 % (35.0-51.0) 07/26/18 05:15 MCV 101.7 fl (80.0-94.0) H D 07/26/18 05:15 MCH 33.5 pg (27.0-31.0) H 07/26/18 05:15 MCHC 33.0 g/dL (33.0-37.0) 07/26/18 05:15 RDW 17.1 % (11.5-14.5) H 07/26/18 05:15 Plt Count 208 K/uL (130-400) 07/26/18 05:15 MPV 9.2 fl (7.2-11.7) 07/26/18 05:15 Neut % (Auto) 82.2 % (50.0-75.0) H 07/26/18 05:15 Lymph % (Auto) 8.6 % (20.0-40.0) L 07/26/18 05:15 [place] % (Auto) 5.7 % (0.0-10.0) 07/26/18 05:15 Eos % (Auto) 2.4 % (0.0-4.0) 07/26/18 05:15 Baso % (Auto) 1.1 % (0.0-2.0) 07/26/18 05:15 Neut # (Auto) 18.1 K/uL (1.8-7.0) H 07/26/18 05:15 Lymph # (Auto) 1.9 K/uL (1.0-4.3) 07/26/18 05:15 [place] # (Auto) 1.3 K/uL (0.0-0.8) H 07/26/18 05:15 Eos # (Auto) 0.5 K/uL (0.0-0.7) 07/26/18 05:15 Baso # (Auto) 0.2 K/uL (0.0-0.2) 07/26/18 05:15 Neutrophils % (Manual) 79 % (42-75) H 07/23/18 06:30 Band Neutrophils % 3 % (0-2) H 07/23/18 06:30 Lymphocytes % (Manual) 8 % (20-50) L 07/23/18 06:30 Monocytes % (Manual) 7 % (0-10) 07/23/18 06:30 Eosinophils % (Manual) 2 % (0-7) 07/23/18 06:30 Basophils % (Manual) 1 % (0-2) 07/23/18 06:30 Platelet Estimate Normal (NORMAL) 07/23/18 06:30 Large Platelets Present 07/23/18 06:30 Hypochromasia (manual) Slight 07/20/18 05:00 Anisocytosis (manual) Slight 07/23/18 06:30 Tear Drop Cells Slight 07/23/18 06:30 Ovalocytes Slight 07/23/18 06:30 [place] Moderate 07/20/18 05:00 pO2 40 mm/Hg (30-55) 07/20/18 08:17 VBG pH 7.41 (7.32-7.43) 07/20/18 08:17 VBG pCO2 37 mmHg (40-60) L 07/20/18 08:17 VBG HCO3 23.6 mmol/L 07/20/18 08:17 VBG Total CO2 24.6 mmol/L (22-28) 07/20/18 08:17 VBG O2 Sat (Calc) 80.1 % (40-65) H 07/20/18 08:17 VBG Base Excess -0.8 mmol/L (0.0-2.0) L 07/20/18 08:17 VBG Potassium 4.3 mmol/L (3.6-5.2) 07/20/18 08:17 Sodium 131.0 mmol/L (132-148) L 07/20/18 08:17 Chloride 108.0 mmol/L (98-107) H 07/20/18 08:17 Glucose 101 mg/dL (75-110) 07/20/18 08:17 Lactate 2.2 mmol/L (0.7-2.1) H 07/20/18 08:17 FiO2 21.0 % 07/20/18 08:17 Sodium 142 mmol/l (132-148) 07/26/18 05:15 Potassium 3.7 MMOL/L (3.6-5.0) 07/26/18 05:15 Chloride 110 mmol/L (98-107) H 07/26/18 05:15 Carbon Dioxide 25 mmol/L (22-30) 07/26/18 05:15 Anion Gap 11 (10-20) 07/26/18 05:15 BUN 18 mg/dl (9-20) 07/26/18 05:15 Creatinine 1.0 mg/dl (0.8-1.5) 07/26/18 05:15 Est GFR ( Amer) > 60 07/26/18 05:15 Est GFR (Non-Af Amer) > 60 07/26/18 05:15 Random Glucose 77 mg/dL (75-110) 07/26/18 05:15 Calcium 8.4 mg/dL (8.4-10.2) 07/26/18 05:15 Phosphorus 3.2 mg/dl (2.5-4.5) 07/23/18 06:30 Magnesium 1.6 MG/DL (1.6-2.3) 07/23/18 06:30 Total Bilirubin 6.7 mg/dl (0.2-1.3) H 07/26/18 05:15 AST 170 U/L (17-59) H 07/26/18 05:15 ALT 51 U/L (21-72) 07/26/18 05:15 Alkaline Phosphatase 270 U/L (38-126) H 07/26/18 05:15 Ammonia 26 umo/L (16-60) D 07/20/18 05:00 Total Protein 6.9 G/DL (6.3-8.2) 07/26/18 05:15 Albumin 2.5 g/dL (3.5-5.0) L 07/26/18 05:15 Globulin 4.4 gm/dL (2.2-3.9) H 07/26/18 05:15 Albumin/Globulin Ratio 0.6 (1.0-2.1) L 07/26/18 05:15 Alpha Fetoprotein 1.9 IU/mL (0.0-7.22) 07/23/18 06:30 CA 19-9 Antigen 260 U/mL (0-37) H D 07/23/18 06:30 Venous Blood Potassium 4.3 mmol/L (3.6-5.2) 07/20/18 08:17 Urine Color Maria Antonia (YELLOW) 07/20/18 05:15 Urine Clarity Slighty-cloudy (Clear) 07/20/18 05:15 Urine pH 5.0 (5.0-8.0) 07/20/18 05:15 Ur Specific [place] 1.027 (1.003-1.030) 07/20/18 05:15 Urine Protein 30 mg/dL (NEGATIVE) 07/20/18 05:15 Urine Glucose (UA) Neg mg/dL (Normal) 07/20/18 05:15 Urine Ketones Negative mg/dL (NEGATIVE) 07/20/18 05:15 Urine Blood Negative (NEGATIVE) 07/20/18 05:15 Urine Nitrate Negative (NEGATIVE) 07/20/18 05:15 Urine Bilirubin Small (NEGATIVE) 07/20/18 05:15 Urine Urobilinogen 2.0 mg/dL (0.2-1.0) 07/20/18 05:15 Ur Leukocyte Esterase Neg Param/uL (Negative) 07/20/18 05:15 Urine RBC (Auto) 3 /hpf (0-3) 07/20/18 05:15 Urine Microscopic WBC 5 /hpf (0-5) 07/20/18 05:15 Ur Squamous Epith Cells < 1 /hpf (0-5) 07/20/18 05:15 Urine Bacteria Rare (<OCC) 07/20/18 05:15 Hyaline Casts 6-10 /hpf (0-2) H 07/20/18 05:15 Discharge Exam - Head Exam Head Exam: NORMAL INSPECTION Discharge Plan - Discharge Medications Prescriptions: Furosemide [Lasix] 40 mg PO DAILY #14 tablet - Follow Up Plan Condition: GUARDED Disposition: REHAB FACILITY/REHAB UNIT Instructions: Cirrhosis Additional Instructions: Fall precaution. Referrals: Rayshawn Bill MD [Staff Provider] -
--- NOTE | 2018-08-02 13:51 | PQF ---
PROVIDER RESPONSE TEXT: Acute Kidney Injury ruled out for this admission. REVIEWER QUERY TEXT: Clinical Validity Additional clinical indicators are required to support your documented diagnosis of ACUTE RENAL DOMINGUEZ LURE Please respond and also state in your next progress note whether: -- Condition exists and also please provide clinical indicators to support the diagnosis -- Condition does not exist and also please provide amended documentation in the medical record to cl kapil -- Unable to provide additional clarity regarding the diagnosis -- Other, please specify The patient's Clinical Indicators include: BUN 16, 18 Creatinine 1.0, 1.0 GFR > 60, > 60 Query created by: Jessica Leon on 07/21/2018 8:24 AM Electronically signed by: Rayshawn Bill MD 08/02/2018 1:48 PM
--- NOTE | 2018-08-02 13:51 | PQF ---
PROVIDER RESPONSE TEXT: Metabolic encephalopathy due to decompensated liver cirrhosis. REVIEWER QUERY TEXT: Encephalopathy Type Metabolic Encephalopathy is documented in the Medical Record. Please specify the etiology of Metaboli c Encephalopathy The patient's Clinical Indicators include: WBC 25.1 with a L shift T BILI 6.4, AST 202, ALP 374 BUN and Creatinine WNL Ammonia level 26 WNL Query created by: Jessica Leon on 07/21/2018 8:27 AM Electronically signed by: Rayshawn Bill MD 08/02/2018 1:48 PM
== END 2018-07-28 14:55 | DRG 432 ==
LOC: H.ER 03:33 → H.ERHOLD 05:53 → H.TEL 08:56 → H.MEDSURG1 07-26 18:50
PROVIDERS: ADMIT Internal Medicine Pulmonary Disease; ATTEND Internal Medicine Pulmonary Disease
DX: K70.31 Alcoholic cirrhosis of liver with ascites (principal); G93.41 Metabolic encephalopathy; C22.0 Liver cell carcinoma; F10.239 Alcohol dependence with withdrawal, unspecified; K70.40 Alcoholic hepatic failure without coma; D73.1 Hypersplenism; I12.9 Hypertensive chronic kidney disease with stage 1 through stage 4 chronic kidney disease, or unspecified chronic kidney disease; N18.9 Chronic kidney disease, unspecified; Z51.5 Encounter for palliative care; Z87.891 Personal history of nicotine dependence